=== PATIENT | male | born 1970 | race Caucasian/White ===

== ENCOUNTER 2018-08-25 14:32 | Emergency (ER) | payer MEDICARE ==
[2018-08-25 14:43] VITALS: BP 124/72; PULSE 88; RESP 18; TEMP 98.2
[2018-08-25] MEDS ORDERED: DIPH,PERTUS(ACELL)TETVAC-LF 0.5 ML VIAL IM ONE (14:57)
[2018-08-25] MEDS ORDERED: CEPHALEXIN 500MG STARTER PACK 4 CAP BTL PO STA (14:57)
--- NOTE | 2018-08-25 15:07 | ED ---
Wound/Laceration HPI - General Chief Complaint: Wound/Laceration Stated Complaint: Foot injury, toe laceration Time Seen by Provider: 08/25/18 14:44 Source: patient, RN notes reviewed, old records reviewed Mode of arrival: wheelchair Limitations: no limitations - History of Present Illness Initial Comments: Patient's a 48-year-old male with a history of left-sided paralysis post stroke presents emergency Department today with chief complaint of a laceration over his left third toe. Patient reports that he was in his wheelchair, not wearing shoes or boots. Patient reports that his toe was caught the edge of the fence causing laceration. He reports that he R he has limited range of motion of the toes due to neuropathy. Patient reports that he has had no fevers or chills, denies any chest pain shortness breath. He denies any other injuries. Patient reports that he is not up-to-date on his tetanus shot. - Related Data Home Medications Medication Instructions Recorded Confirmed Insulin Glargine [Lantus] 100 unit SQ HS 03/22/14 09/06/15 Olmesartan/Hydrochlorothiazide 1 tab PO DAILY 03/22/14 09/04/15 [Benicar Hct 40-25 mg Tablet] Simvastatin [Zocor] 40 mg PO HS 03/22/14 09/04/15 Multivit-Min/FA/Lycopen/Lutein 1 tab PO DAILY 09/04/15 09/04/15 [Centrum Silver Tablet] Previous Rx's Medication Instructions Recorded Lacosamide [Vimpat] 100 mg PO BID #120 tablet 09/08/15 Nicotine 14Mg/24Hr Patch [Habitrol] 1 patch TRANSDERM DAILY #30 patch 09/08/15 Pantoprazole [Protonix] 40 mg PO DAILY #30 tablet. 09/08/15 Phenytoin Sodium Extended 200 mg PO BID #120 cap 09/08/15 [Dilantin] Cephalexin [Keflex] 500 mg PO Q6H #40 cap 08/25/18 Allergies Allergy/AdvReac Type Severity Reaction Status Date / Time levetiracetam [From Keppra] AdvReac Confusion Verified 09/03/15 08:41 Review of Systems ROS Statement: Those systems with pertinent positive or pertinent negative responses have been documented in the HPI. ROS Other: All systems not noted in ROS Statement are negative. Past Medical History Past Medical History: Cancer, Diabetes Mellitus, Hypertension, Seizure Disorder Additional Past Medical History / Comment(s): brain ca History of Any Multi-Drug Resistant Organisms: None Reported Past Surgical History: Bariatric Surgery Additional Past Surgical History / Comment(s): brain tumor grade 3 removed April. Lap band-removed 2013 Past Anesthesia/Blood Transfusion Reactions: No Reported Reaction, Unable to Obtain Past Psychological History: Anxiety, Depression Smoking Status: Former smoker Past Alcohol Use History: Occasional Past Drug Use History: None Reported - Past Family History Mother History Unknown: Yes Family Medical History: No Reported History Father Family Medical History: Congestive Heart Failure (CHF), Diabetes Mellitus General Exam - General Exam Comments Initial Comments: 48-year-old male. Patient is wheelchair-bound. Patient appears in no acute distress. Limitations: no limitations General appearance: alert, in no apparent distress Head exam: Present: atraumatic, normocephalic, normal inspection Eye exam: Present: normal appearance, PERRL, EOMI. Absent: scleral icterus, conjunctival injection, periorbital swelling ENT exam: Present: normal exam, mucous membranes moist Respiratory exam: Present: normal lung sounds bilaterally. Absent: respiratory distress, wheezes, rales, rhonchi, stridor Cardiovascular Exam: Present: regular rate, normal rhythm, normal heart sounds. Absent: systolic murmur, diastolic murmur, rubs, gallop, clicks GI/Abdominal exam: Present: soft, normal bowel sounds. Absent: distended, tenderness, guarding, rebound, rigid Left Knee exam: Present: normal inspection, full ROM Lower Leg exam: Present: normal inspection, full ROM Ankle exam: Present: normal inspection, full ROM Foot/Toe exam: Present: full ROM, laceration (Patient has a laceration of the base of the third digit.). Absent: normal inspection Neurovascular tendon exam: Present: no vascular compromise 1 - 3cm laceration. Back exam: Present: normal inspection Neurological exam: Present: alert, oriented X3, CN II-XII intact Psychiatric exam: Present: normal affect, normal mood Skin exam: Present: warm, dry, intact, normal color. Absent: rash Course Vital Signs 08/25/18 14:39 Temperature 98.2 F Pulse Rate 88 Respiratory 18 Rate Blood Pressure 124/72 O2 Sat by Pulse 98 Oximetry Procedures - Laceration Laceration #1 Site: foot (left middle toe) Size (cm): 3 Description: linear Anesthetic Used: lidocaine 1% Anesthesia Technique: local infiltration Amount (mls): 3 Pre-repair: wound explored, irrigated extensively Size of Sutures: 5-0 Number of Sutures: 6 Technique: simple, interrupted Patient Tolerated Procedure: well, no complications Medical Decision Making - Medical Decision Making Patient is a 48-year-old male presenting to the emergency department today with a laceration over his left middle toe. He is wheelchair-bound. History of comorbidities. He's had suffered from a stroke after a brain tumor surgery. Patient has chronic left-sided lower extremity weakness. He does have some slight range of motion of the toes. He states that that has been chronic. No significant change due to his laceration. Wound was thoroughly reviewed with saline and Betadine. Laceration is closed with approximately 6 sutures. I will put the Patient on Keflex for infection prevention at this time. Discussed close follow-up with his PCP and he does see wound care. She does currently live in extended care facility. I discussed close follow-up. All questions answered. - Radiology Data Radiology results: report reviewed Foot x-rays made for any acute fracture dislocation. Disposition Clinical Impression: Toe laceration Disposition: HOME SELF-CARE Condition: Good Instructions: Laceration (ED) Additional Instructions: Please return to the emergency room in 8-10 days to have sutures removed. Please leave wound covered for the first 24-48 hours and then leave open to air after that time. Please use clean soap and water to clean the suture area to prevent scabbing over the top of your sutures. Please watch for any signs of infection which may include but not limited to increased pain, swelling, redness , fever or chills. Please return to the emergency room if any signs of infection do occur. Please return to the emergency room for any other concerns or complications. Patient should have bacitracin placed over the area, change the dressing 3 times a day. Patient should at some point allow the wound to air after 2-3 days of constant dressing. Patient should monitor for any infection. Computed the antibiotics as prescribed. Prescriptions: Cephalexin [Keflex] 500 mg PO Q6H #40 cap Is patient prescribed a controlled substance at d/c from ED?: No Referrals: Kathryn Vo MD [Primary Care Provider] - 1-2 days Time of Disposition: 16:02
--- NOTE | 2018-08-25 15:31 | XR ---
Left foot HISTORY: Trauma and pain 3 views of the left foot, correlation to prior exam 05/01/2015 Bone mineralization is reduced which could limit sensitivity. Alignment maintained. Suspect overlying artifact at the level of the toes. Hypertrophic change present within the tarsal bones, joint spaces are poorly defined, there may be ankylosis due to remote trauma. There is soft tissue swelling. Plan tar calcaneal spur is present. IMPRESSION: No acute fracture or dislocation.
== END 2018-08-25 16:10 | disposition home or self-care (01) ==
LOC: EC 14:32
DX: S91.115A Laceration without foreign body of left lesser toe(s) without damage to nail, initial encounter (principal); I69.354 Hemiplegia and hemiparesis following cerebral infarction affecting left non-dominant side; I10 Essential (primary) hypertension; E11.40 Type 2 diabetes mellitus with diabetic neuropathy, unspecified; Z87.891 Personal history of nicotine dependence; Z88.8 Allergy status to other drugs, medicaments and biological substances; Z79.4 Long term (current) use of insulin; Z79.899 Other long term (current) drug therapy; Z85.841 Personal history of malignant neoplasm of brain; Z98.890 Other specified postprocedural states; Z99.3 Dependence on wheelchair; Z23 Encounter for immunization; W45.8XXA Other foreign body or object entering through skin, initial encounter; Y92.009 Unspecified place in unspecified non-institutional (private) residence as the place of occurrence of the external cause
CPT/HCPCS: 12002; 90471; 90715; 99283

== ENCOUNTER → 2019-03-10 | Outpatient (CLI) | payer OTHER | END | disposition home or self-care (01) | LOC: LABWHC1 11:30 | PROVIDERS: ATTEND Urology | DX: R97.20 Elevated prostate specific antigen [PSA] (principal) | CPT/HCPCS: 36415; 84153 ==

== ENCOUNTER → 2019-03-24 | Outpatient (CLI) | payer MEDICARE, OTHER ==
--- NOTE | 2019-03-24 15:42 | US ---
EXAMINATION TYPE: US venous doppler duplex LE LT DATE OF EXAM: 03/24/2019 3:28 PM COMPARISON: NONE CLINICAL HISTORY: R60.9 Edema. SIDE PERFORMED: Left TECHNIQUE: The lower extremity deep venous system is examined utilizing real time linear array sonog lorraine with graded compression, doppler sonography and color-flow sonography. VESSELS IMAGED: External Iliac Vein (EIV)-not seen Common Femoral Vein-not seen Deep Femoral Vein-not seen Greater Saphenous Vein *-not seen Femoral Vein Popliteal Vein Small Saphenous Vein *-not seen Proximal Calf Veins-not seen (* superficial vessels) Morbidly obese patient with extensive edema scanned in his Gunlock wheelchair. Left Leg: Only able to visualize small portion of vein, unable to visualize any compression views in thigh due to patient size and position in chair. Femoral vein appears patent upper and mid, however t his is very limited. Only able to visualized proximal and mid popliteal vein, these appear negative f or DVT. IMPRESSION: 1. Severely limited exam correlate portions of the femoral vein are seen. Exam is essentially nondiag nostic. The visualized portions of the venous system are patent. DVT not excluded in the areas not de monstrated.
== END | disposition home or self-care (01) ==
LOC: RADUSWWP 15:05
PROVIDERS: ATTEND Internal Medicine Geriatric Medicine
DX: R60.9 Edema, unspecified (principal)

== ENCOUNTER 2019-04-02 10:44 | Inpatient (IN) | payer MEDICARE ==
[2019-04-02] MEDS ORDERED: SODIUM CHLORIDE 0.9% 500 ML 500 ML IV STA (11:15)
[2019-04-02] MEDS ORDERED: levETIRAcetam IV 1,000 MG in SALINE 1 100ML.BAG IVPB STA (11:27)
--- NOTE | 2019-04-02 11:32 | ED ---
General Adult HPI - General Chief complaint: Seizure Stated complaint: Seizure Time Seen by Provider: 04/02/19 11:15 Source: patient, EMS, RN notes reviewed Mode of arrival: EMS Limitations: physical limitation - History of Present Illness Initial comments: 48-year-old male with a past medical history of hypertension, diabetes, seizure disorder, astrocytoma presents to the emergency department for a chief complaint of seizures. Patient apparently had 2 focal seizures occur all earlier this morning. One was witnessed by EMS and lasted approximately 20-30 seconds. Caregiver also witnessed this and states that patient stared to the right and started to have some minimal shaking. He said he did follow her with his eyes. Patient states he remembers these episodes. Patient did not lose bladder or bowel function. Did not bite his tongue. Patient takes Keppra for seizures but states he has a history of tonic-clonic seizures with the last one occurring in 2016. 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 Patient is not yet cleared of astrocytoma. Patient did take his medications earlier today. Patient has no other complaints at this time including shortness of breath, chest pain, abdominal pain, nausea or vomiting, headache, or visual changes. - Related Data Home Medications Medication Instructions Recorded Confirmed Insulin Glargine [Lantus] 30 unit SQ HS 03/22/14 04/02/19 Acetaminophen [Tylenol] 650 mg PO Q6H PRN MDD 6 TABS 04/02/19 04/02/19 Albuterol Inhaler [Ventolin Hfa 2 puff INHALATION RT-Q6H PRN 04/02/19 04/02/19 Inhaler] Atorvastatin Calcium [Lipitor] 80 mg PO HS 04/02/19 04/02/19 Calcium Carbonate [Tums] 1,000 mg PO QID PRN 04/02/19 04/02/19 Celecoxib [CeleBREX] 200 mg PO DAILY 04/02/19 04/02/19 Cyanocobalamin [Vitamin B-12] 500 mcg PO MOTUWETHFR 04/02/19 04/02/19 DULoxetine HCL [Cymbalta] 60 mg PO DAILY 04/02/19 04/02/19 Furosemide [Lasix] 20 mg PO DAILY 04/02/19 04/02/19 Gabapentin 800 mg PO TID 04/02/19 04/02/19 Insulin Glargine [Lantus] 35 unit SQ DAILY 04/02/19 04/02/19 Losartan [Cozaar] 50 mg PO DAILY 04/02/19 04/02/19 Multivitamins, Thera [Multivitamin 1 tab PO DAILY 04/02/19 04/02/19 (formulary)] Tamsulosin HCl [Flomax] 0.4 mg PO DAILY 04/02/19 04/02/19 hydrALAZINE HCL 50 mg PO TID 04/02/19 04/02/19 levETIRAcetam [Keppra] 500 mg PO Q12HR 04/02/19 04/02/19 metFORMIN HCL 1,000 mg PO BID 04/02/19 04/02/19 Allergies Allergy/AdvReac Type Severity Reaction Status Date / Time lisinopril Allergy Unknown Verified 04/02/19 11:27 pioglitazone [From Actos] Allergy Unknown Verified 04/02/19 11:27 levetiracetam [From Keppra] AdvReac Confusion Verified 04/02/19 11:27 Review of Systems ROS Statement: Those systems with pertinent positive or pertinent negative responses have been documented in the HPI. ROS Other: All systems not noted in ROS Statement are negative. Past Medical History Past Medical History: Cancer, Diabetes Mellitus, Hypertension, Seizure Disorder Additional Past Medical History / Comment(s): brain ca History of Any Multi-Drug Resistant Organisms: None Reported Past Surgical History: Bariatric Surgery Additional Past Surgical History / Comment(s): brain tumor grade 3 removed April,. Lap band-removed 2013 Past Anesthesia/Blood Transfusion Reactions: No Reported Reaction, Unable to Ob tain Past Psychological History: Anxiety, Depression Smoking Status: Current every day smoker Past Alcohol Use History: Occasional Past Drug Use History: None Reported - Past Family History Mother History Unknown: Yes Family Medical History: No Reported History Father Family Medical History: Congestive Heart Failure (CHF), Diabetes Mellitus General Exam Limitations: physical limitation General appearance: alert, in no apparent distress (Well appearing, talking, no distress) Head exam: Present: atraumatic, normocephalic, normal inspection Eye exam: Present: normal appearance, PERRL, EOMI. Absent: scleral icterus, conjunctival injection, periorbital swelling ENT exam: Present: normal exam, mucous membranes moist Neck exam: Present: normal inspection, full ROM. Absent: tenderness, meningismus, lymphadenopathy Respiratory exam: Present: normal lung sounds bilaterally. Absent: respiratory distress, wheezes, rales, rhonchi, stridor Cardiovascular Exam: Present: regular rate, normal rhythm, normal heart sounds. Absent: systolic murmur, diastolic murmur, rubs, gallop, clicks Neurological exam: Present: alert, oriented X3, CN II-XII intact, other (Patient has left-sided facial arm and leg weakness which is all chronic) Psychiatric exam: Present: normal affect, normal mood Course Vital Signs 04/02/19 04/02/19 10:54 13:36 Temperature 97.2 F L Pulse Rate 96 88 Respiratory 18 16 Rate Blood Pressure 135/86 138/88 O2 Sat by Pulse 94 L 98 Oximetry EKG Findings - EKG Comments: EKG Findings:: Normal sinus rhythm, ventricular rate 87, CT interval 164, QTc 462, no evidence of ST elevation or depression Medical Decision Making - Medical Decision Making 48-year-old male with a past medical history of hypertension, diabetes, seizure disorder, astrocytoma presents to the emergency department for chief clean of seizures. Patient had 2 focal seizures occurring earlier this morning. One was witnessed by EMS. Caregivers witnessed the other. Patient apparently turned his head to the right had some minimal shaking that lasted for about 20-30 seconds. Patient has a history of left-sided chronic weakness due to brain mcbride rgery for astrocytoma. No history of stroke. She does have a history of grand mal seizures with the last seizure being in 2016. These seizures are different than any previous seizures. On exam patient does have left-sided weakness however right-side is intact. Patient states he feels normal besides for the seizures. She was given Keppra here as he does take Keppra home. He did have a mild seizure and was given Ativan. ABC is unremarkable. CMP does show a glucose of 326, patient has a history of diabetes and was given insulin SQ,. Brain CT shows focal decreased attenuation which may reflect a vascular insult. Clinically likely not the case as left-sided weakness is chronic and he has no other focal neurologic deficits. There is also a temporal craniotomy with postoperative encephalomalacia and dilation of the right lateral ventricle right frontal horn. Given that patient has had a seizure while in the ER he will be admitted for neurology consult. Patient also has possible urinary tract infection, will be given dose of Rocephin here in the emergency department. - Lab Data Result diagrams: 04/02/19 11:20 04/02/19 11:20 Lab Results 04/02/19 04/02/19 04/02/19 Range/Units 11:20 11:20 11:20 WBC 6.7 (3.8-10.6) k/uL RBC 5.33 (4.30-5.90) m/uL Hgb 16.2 (13.0-17.5) gm/dL Hct 50.3 (39.0-53.0) % MCV 94.5 (80.0-100.0) fL MCH 30.3 (25.0-35.0) pg MCHC 32.1 (31.0-37.0) g/dL RDW 13.3 (11.5-15.5) % Plt Count 208 (150-450) k/uL Neutrophils % 76 % Lymphocytes % 14 % Monocytes % 7 % Eosinophils % 2 % Basophils % 1 % Neutrophils # 5.1 (1.3-7.7) k/uL Lymphocytes # 0.9 L (1.0-4.8) k/uL Monocytes # 0.5 (0-1.0) k/uL Eosinophils # 0.1 (0-0.7) k/uL Basophils # 0.0 (0-0.2) k/uL Sodium 138 (137-145) mmol/L Potassium 4.2 (3.5-5.1) mmol/L Chloride 100 (98-107) mmol/L Carbon Dioxide 23 (22-30) mmol/L Anion Gap 15 mmol/L BUN 12 (9-20) mg/dL Creatinine 0.58 L (0.66-1.25) mg/dL Est GFR (CKD-EPI)AfAm >90 (>60 ml/min/1.73 sqM) Est GFR (CKD-EPI)NonAf >90 (>60 ml/min/1.73 sqM) Glucose 326 H (74-99) mg/dL Calcium 9.8 (8.4-10.2) mg/dL Magnesium 1.6 (1.6-2.3) mg/dL Total Bilirubin 0.8 (0.2-1.3) mg/dL AST 31 (17-59) U/L ALT 38 (21-72) U/L Alkaline Phosphatase 151 H (38-126) U/L Total Protein 6.8 (6.3-8.2) g/dL Albumin 4.0 (3.5-5.0) g/dL Urine Color Urine Appearance (Clear) Urine pH (5.0-8.0) Ur Specific [place] (1.001-1.035) Urine Protein (Negative) Urine Glucose (UA) (Negative) Urine Blood (Negative) Urine Nitrite (Negative) Urine Bilirubin (Negative) Urine Urobilinogen (<2.0) mg/dL Ur Leukocyte Esterase (Negative) Urine RBC (0-5) /hpf Urine WBC (0-5) /hpf Ur Squamous Epith Cells (0-4) /hpf Urine Bacteria (None) /hpf Urine Mucus (None) /hpf Serum Alcohol <10 mg/dL 04/02/19 Range/Units 13:15 WBC (3.8-10.6) k/uL RBC (4.30-5.90) m/uL Hgb (13.0-17.5) gm/dL Hct (39.0-53.0) % MCV (80.0-100.0) fL MCH (25.0-35.0) pg MCHC (31.0-37.0) g/dL RDW (11.5-15.5) % Plt Count (150-450) k/uL Neutrophils % % Lymphocytes % % Monocytes % % Eosinophils % % Basophils % % Neutrophils # (1.3-7.7) k/uL Lymphocytes # (1.0-4.8) k/uL Monocytes # (0-1.0) k/uL Eosinophils # (0-0.7) k/uL Basophils # (0-0.2) k/uL Sodium (137-145) mmol/L Potassium (3.5-5.1) mmol/L Chloride (98-107) mmol/L Carbon Dioxide (22-30) mmol/L Anion Gap mmol/L BUN (9-20) mg/dL Creatinine (0.66-1.25) mg/dL Est GFR (CKD-EPI)AfAm (>60 ml/min/1.73 sqM) Est GFR (CKD-EPI)NonAf (>60 ml/min/1.73 sqM) Glucose (74-99) mg/dL Calcium (8.4-10.2) mg/dL Magnesium (1.6-2.3) mg/dL Total Bilirubin (0.2-1.3) mg/dL AST (17-59) U/L ALT (21-72) U/L Alkaline Phosphatase (38-126) U/L Total Protein (6.3-8.2) g/dL Albumin (3.5-5.0) g/dL Urine Color Light Yellow Urine Appearance Clear (Clear) Urine pH 5.0 (5.0-8.0) Ur Specific [place] 1.031 (1.001-1.035) Urine Protein Negative (Negative) Urine Glucose (UA) 4+ H (Negative) Urine Blood Trace H (Negative) Urine Nitrite Negative (Negative) Urine Bilirubin Negative (Negative) Urine Urobilinogen <2.0 (<2.0) mg/dL Ur Leukocyte Esterase Moderate H (Negative) Urine RBC 1 (0-5) /hpf Urine WBC 41 H (0-5) /hpf Ur Squamous Epith Cells <1 (0-4) /hpf Urine Bacteria Rare H (None) /hpf Urine Mucus Rare H (None) /hpf Serum Alcohol mg/dL Disposition Clinical Impression: Focal seizure, Hyperglycemia Disposition: ADMITTED IP TO THIS HOSP Condition: Fair Is patient prescribed a controlled substance at d/c from ED?: No Referrals: Kathryn Vo MD [Primary Care Provider] - 1-2 days Time of Disposition: 13:37
[2019-04-02] MEDS ORDERED: LORazepam 2 MG/ML INJ IV STA (11:37)
[2019-04-02 11:44] LABS: Basophils % (A) 1 %; Eosinophils # (A) 0.1 k/uL (0-0.7); Eosinophils % (A) 2 %; HCT 50.3 % (39.0-53.0); HGB 16.2 gm/dL (13.0-17.5); Lymphocytes # (A) 0.9 k/uL (1.0-4.8); Lymphocytes % (A) 14 %; MCH 30.3 pg (25.0-35.0); MCHC 32.1 g/dL (31.0-37.0); MCV 94.5 fL (80.0-100.0); Mean Platelet Volume 7.9; Monocytes # (A) 0.5 k/uL (0-1.0); Monocytes % (A) 7 %; Neutrophils # (A) 5.1 k/uL (1.3-7.7); Neutrophils % (A) 76 %; Platelet Count 208 k/uL (150-450); RBC 5.33 m/uL (4.30-5.90); RDW 13.3 % (11.5-15.5); WBC 6.7 k/uL (3.8-10.6)
[2019-04-02 11:49] LABS: ALT 38 U/L (21-72); AST 31 U/L (17-59); African American GFR (CKD) >90 (>60 ml/min/1.73 sqM); Alkaline Phosphatase 151 U/L (38-126); Anion Gap 15 mmol/L; Blood Urea Nitrogen 12 mg/dL (9-20); Calcium 9.8 mg/dL (8.4-10.2); Carbon Dioxide 23 mmol/L (22-30); Chloride 100 mmol/L (98-107); Glucose 326 mg/dL (74-99); Magnesium 1.6 mg/dL (1.6-2.3); Potassium 4.2 mmol/L (3.5-5.1); Sodium 138 mmol/L (137-145); Total Bilirubin 0.8 mg/dL (0.2-1.3); Total Protein 6.8 g/dL (6.3-8.2)
--- NOTE | 2019-04-02 12:25 | CT ---
EXAMINATION TYPE: CT brain wo con DATE OF EXAM: 04/02/2019 COMPARISON: 09/03/2015 HISTORY: Seizure today. CT DLP: 1095.[address] of the brain was performed. There is evidence of prior right temporal craniotomy. Extra-axial dilatation of the right lateral soo tricle and frontal horn. Encephalomalacia of the right temporal lobe is postoperative in nature. There is a focal decreased attenuation seen on image 27 of 55 minutes which may reflect vascular insu lt. Correlate clinically. There is no evidence for intracranial hemorrhage or sulcal effacement. No mass effects are seen. If symptoms persist consider MRI as clinically warranted. IMPRESSION: 1. There is a focal decreased attenuation seen on image 27 of 55 minutes which may reflect vascular insult. Correlate clinically. 2. Right temporal craniotomy with postoperative encephalomalacia and exvacuo dilatation of the right lateral ventricle right frontal horn.
[2019-04-02] MEDS ORDERED: INSULIN ASPART (NovoLOG) 100 UNIT/ML VIAL SQ ONE (12:44)
[2019-04-02] MEDS ORDERED: ASPIRIN 81 MG PO STA (13:35)
[2019-04-02] MEDS ORDERED: NALOXONE 0.4 MG/ML 1 ML VIAL IV PRN (13:38)
[2019-04-02 13:40] LABS: Appearance,Urine Clear (Clear); Bacteria,Urine Rare /hpf; Bilirubin,Urine Negative (Negative); Blood,Urine Trace (Negative); Color,Urine Light Yellow; Glucose,Urine (UA) 4+ (Negative); Leukocyte Esterase,Urine Moderate (Negative); Mucus,Urine Rare /hpf; Nitrite,Urine Negative (Negative); Protein,Urine Negative (Negative); RBC,Urine 1 /hpf (0-5); Specific Gravity,Urine 1.031 (1.001-1.035); Squamous Epithelial Cell,Urine <1 /hpf (0-4); Urobilinogen,Urine <2.0 mg/dL (<2.0); WBC,Urine 41 /hpf (0-5)
[2019-04-02] MEDS ORDERED: cefTRIAXone IN SWFI 1,000 MG/10 ML SYRINGE IVP STA (13:41)
[2019-04-02 13:47] LABS: Amphetamine Screen,Urine Not Detected (NotDetected); Barbiturate Screen,Urine Not Detected (NotDetected); Benzodiazepines Screen,Urine Not Detected (NotDetected); Cocaine Screen,Urine Not Detected (NotDetected); Methadone Screen, Urine Not Detected (NotDetected); Opiate Screen,Urine Not Detected (NotDetected); Oxycodone Screen, Urine Detected (NotDetected); Phencyclidine Screen,Urine Not Detected (NotDetected); Tricyclic Antidepressant,Urine Not Detected (NotDetected); Urn Cannabinoid Scrn Not Detected (NotDetected)
[2019-04-02] MEDS: SODIUM CHLORIDE 0.9% 1,000 ML IV SCH (13:54)
[2019-04-02 13:56] LABS: Ketones,Urine 4+ (Negative)
[2019-04-02 14:05] LABS: Glucose,Whole Blood 273 mg/dL (75-99)
[2019-04-02] MEDS ORDERED: CALCIUM CARBONATE 500 MG CHEWABLE PO PRN (14:43)
[2019-04-02] MEDS ORDERED: ACETAMINOPHEN TAB 325 MG TAB PO PRN (14:43)
[2019-04-02] MEDS ORDERED: ALBUTEROL NEBULIZED 2.5 MG/3 ML INHALATION PRN (14:43)
--- NOTE | 2019-04-02 14:43 | P.HPIM ---
History of Present Illness H&P Date: 04/02/19 Chief Complaint: Recurrent seizures. This is a 48-year-old male one of Dr. 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, seizure disorder, hypertension and hypertensive cardiovascular disease, diabetes mellitus type 2, morbid obesity with obstructive sleep apnea, patient was in his usual state of health with his caregiver when he developed to have a significant left-sided muscle and he has gone into seizure activity for about 22nd this is followed by another seizure lasted for about 45 seconds that was witnessed by the EMS and the patient was transported to the emergency department at [facility] where the patient developed to have a tonic-clonic seizure without any loss of consciousness and without any urinary or stool incontinence and he did not bite his tongue, patient had a computed tomography scan of the brain that showed beside the encephalomalacia due to the prior surgical intervention what appears to be in hypoattenuation area suggestive of an vascular insult, patient stated that he had an MRI done prolonged ago at the [facility] MRI we will try to get the result from the office, and the patient he stated that he has been following [facility] h Dr. Fahad Blair from neurology at [facility] and the last time he was seen by him about 2 months ago, patient will be admitted to the hospital he was seen in consultation by neurology and his Keppra dose will be adjusted, patient will be placed on seizure precautions as well, full acute stroke evaluation will be done including ultrasound the carotid echocardiogram he will maintain an antiplatelet therapy as well. Review of Systems Constitutional: Reports chronic pain, Reports weakness, Denies anorexia, Denies chronic headaches, Denies fatigue, Denies lethargy, Denies malaise Eyes: denies blurred vision, denies bulging eye, denies decreased vision Ears: deny: decreased hearing Ears, nose, mouth and throat: Denies dysphagia, Denies neck lump, Denies swelling in throat, Denies sore throat Cardiovascular: Denies chest pain, Denies decreased exercise tolerance, Denies dyspnea on exertion, Denies lightheadedness, Denies rapid heart beat, Denies shortness of breath, Denies syncope Respiratory: Reports sleep apnea, Reports snoring, Denies congestion, Denies cough with sputum, Denies home oxygen, Denies wheezing Gastrointestinal: Denies abdominal pain, Denies bloating, Denies BRBPR, Denies heartburn, Denies melena, Denies nausea, Denies vomiting Genitourinary: Denies dysuria Musculoskeletal: Reports gait dysfunction, Reports low back pain, Reports muscle weakness Musculoskeletal: bilateral: ankle swelling, foot swelling, absent: ankle pain, ankle stiffness, elbow pain, elbow stiffness, elbow swelling, foot pain, foot stiffness, hand pain, hand stiffness, hand swelling, hip pain, hip stiffness, hip swelling, knee pain, knee stiffness, knee swelling, shoulder pain, shoulder stiffness, shoulder swelling, wrist pain, wrist stiffness, wrist swelling Integumentary: Denies pruritus, Denies rash Neurological: Reports convulsions, Reports gait dysfunction, Reports motor disturbance, Reports paralysis, Reports seizures, Reports sensory deficit, Reports weakness (Left-sided hemiplegia.) Psychiatric: Denies anxiety, Denies depression Endocrine: Denies fatigue, Denies weight change Past Medical History Past Medical History: Cancer, Diabetes Mellitus, Hyperlipidemia, Hypertension, Neurologic Disorder, Seizure Disorder, Sleep Apnea/CPAP/BIPAP Additional Past Medical History / Comment(s): Astrocytoma status post right temporal craniotomy. History of Any Multi-Drug Resistant Organisms: None Reported Past Surgical History: Bariatric Surgery Additional Past Surgical History / Comment(s): brain tumor grade 3 removed April,. Lap band-removed 2013 Past Anesthesia/Blood Transfusion Reactions: No Reported Reaction, Unable to Obtain Past Psychological History: Anxiety, Depression Smoking Status: Current every day smoker (Patient smoked about half a pack every day his hospital he was teenager.) Past Alcohol Use History: Occasional Past Drug Use History: None Reported - Past Family History Mother History Unknown: Yes Family Medical History: No Reported History (Mother 72-year-old with history of bipolar disorder.) Father Family Medical History: Congestive Heart Failure (CHF) (Father at age 64 from congestive heart failure he also has diabetes mellitus type 2.), Diabetes Mellitus Brother(s) Family Medical History: No Reported History (Patient has one brother no major medical problems.) Sister(s) Family Medical History: No Reported History (Patient has 2 sisters no major medical problems.) Son(s) Family Medical History: No Reported History (Patient has 2 sons no major medical problems.) Medications and Allergies Home Medications Medication Instructions Recorded Confirmed Type Insulin Glargine [Lantus] 30 unit SQ HS 03/22/14 04/02/19 History Acetaminophen [Tylenol] 650 mg PO Q6H PRN MDD 6 TABS 04/02/19 04/02/19 History Albuterol Inhaler [Ventolin Hfa 2 puff INHALATION RT-Q6H PRN 04/02/19 04/02/19 History Inhaler] Atorvastatin Calcium [Lipitor] 80 mg PO HS 04/02/19 04/02/19 History Calcium Carbonate [Tums] 1,000 mg PO QID PRN 04/02/19 04/02/19 History Celecoxib [CeleBREX] 200 mg PO DAILY 04/02/19 04/02/19 History Cyanocobalamin [Vitamin B-12] 500 mcg PO MOTUWETHFR 04/02/19 04/02/19 History DULoxetine HCL [Cymbalta] 60 mg PO DAILY 04/02/19 04/02/19 History Furosemide [Lasix] 20 mg PO DAILY 04/02/19 04/02/19 History Gabapentin 800 mg PO TID 04/02/19 04/02/19 History Insulin Glargine [Lantus] 35 unit SQ DAILY 04/02/19 04/02/19 History Losartan [Cozaar] 50 mg PO DAILY 04/02/19 04/02/19 History Multivitamins, Thera [Multivitamin 1 tab PO DAILY 04/02/19 04/02/19 History (formulary)] Tamsulosin HCl [Flomax] 0.4 mg PO DAILY 04/02/19 04/02/19 History hydrALAZINE HCL 50 mg PO TID 04/02/19 04/02/19 History levETIRAcetam [Keppra] 500 mg PO Q12HR 04/02/19 04/02/19 History metFORMIN HCL 1,000 mg PO BID 04/02/19 04/02/19 History Allergies Allergy/AdvReac Type Severity Reaction Status Date / Time lisinopril Allergy Unknown Verified 04/02/19 11:27 pioglitazone [From Actos] Allergy Unknown Verified 04/02/19 11:27 levetiracetam [From Keppra] AdvReac Confusion Verified 04/02/19 11:27 Physical Exam Vitals: Vital Signs Temp Pulse Resp BP Pulse Ox 04/02/19 13:36 88 16 138/88 98 04/02/19 10:54 97.2 F L 96 18 135/86 94 L Intake and Output 04/01/19 04/02/19 04/02/19 22:59 06:59 14:59 Other: Weight 185.519 kg - Constitutional General appearance: no acute distress, obese - EENT Eyes: anicteric sclerae, EOMI, PERRLA, no ptosis, no scleral icterus, normal appearance ENT: hearing grossly normal, normal oropharynx, no thrush Ears: bilateral: normal - Neck Neck: no lymphadenopathy, normal ROM, no rigidity, no stridor, no thyromegaly Carotids: bilateral: upstroke normal Thyroid: bilateral: normal size - Respiratory Respiratory: bilateral: diminished, negative: dullness, rales, rhonchi, wheezing, prolonged expiration - Cardiovascular Rhythm: regular Heart sounds: normal: S1, S2 Abnormal Heart Sounds: no systolic murmur, no rub, no S3 Gallop, no S4 Gallop, no click - Gastrointestinal General gastrointestinal: normal bowel sounds, soft, no splenomegaly, no tenderness, no umbilical hernia, no ventral hernia - Integumentary Integumentary: normal (Chronic skin changes both lower extremities due to neuropathic changes.) - Neurologic Neurologic: focal deficits (Left-sided hemiplegia.) - Musculoskeletal Musculoskeletal: no gait normal, left sided weakness - Psychiatric Psychiatric: A&O x's 3, appropriate affect, intact judgment & insight Results CBC & Chem 7: 04/02/19 11:20 04/02/19 11:20 Labs: Abnormal Lab Results - Last 24 Hours (Table) 04/02/19 04/02/19 04/02/19 Range/Units 11:20 11:20 13:15 Lymphocytes # 0.9 L (1.0-4.8) k/uL Creatinine 0.58 L (0.66-1.25) mg/dL Glucose 326 H (74-99) mg/dL POC Glucose (mg/dL) (75-99) mg/dL Alkaline Phosphatase 151 H (38-126) U/L Urine Glucose (UA) 4+ H (Negative) Urine Ketones 4+ H (Negative) Urine Blood Trace H (Negative) Ur Leukocyte Esterase Moderate H (Negative) Urine WBC 41 H (0-5) /hpf Urine Bacteria Rare H (None) /hpf Urine Mucus Rare H (None) /hpf Ur Oxycodone Screen Detected H (NotDetected) 04/02/19 Range/Units 13:45 Lymphocytes # (1.0-4.8) k/uL Creatinine (0.66-1.25) mg/dL Glucose (74-99) mg/dL POC Glucose (mg/dL) 273 H (75-99) mg/dL Alkaline Phosphatase (38-126) U/L Urine Glucose (UA) (Negative) Urine Ketones (Negative) Urine Blood (Negative) Ur Leukocyte Esterase (Negative) Urine WBC (0-5) /hpf Urine Bacteria (None) /hpf Urine Mucus (None) /hpf Ur Oxycodone Screen (NotDetected) Thrombosis Risk Factor Assmnt - DVT/VTE Prophylaxis DVT/VTE Prophylaxis: Pharmacologic Prophylaxis ordered, Mechanical Prophylaxis ordered Assessment and Plan Assessment: Assessment and plan: 1. Recurrent seizure with tonic-clonic type this time. Increase Keppra to 750 mg orally twice every day, patient did receive a gram of Keppra IV piggyback 1, seizure precautions, neurology evaluation, computed tomography scan of the brain reviewed, patient did have an MRI of the brain that was done just recently we'll try to obtain a copy from [facility]. Neurology consultation. 2. Hypoattenuating lesion suggestive of possible vascular insult. Start the patient on aspirin 325 mg once every day, continue Lipitor 80 mg orally once every day, patient will need to be evaluated by neurology, neuro check every 2 hours for the next 24 hours, we will check ultrasound of the carotid as well as echocardiogram. 3. Hypertension and hypertensive cardiovascular disease. Continue patient on losartan 50 mg orally once every day and hydralazine 50 mg orally 2 times every day. 4. Hyperlipidemia. Continue patient on Lipitor 80 mg orally once every day. 5. Enlarged prostate. Continue Flomax 0.4 mg orally once every day. 6. Diabetes mellitus type 2. Continue patient on Lantus 30 units subcutaneously twice every day along with sliding scale insulin, continue metformin 1000 mg orally twice every day. Became before each meal and at bedtime. 7. Diabetic polyneuropathy. Continue gabapentin 800 mg orally 2 times every day. 8. Depression. Continue Cymbalta 60 mg orally once every day. 9. History of astrocytoma status post right craniotomy with resultant left- sided hemiplegia. 10. DVT prophylaxis. Heparin 5000 units subcutaneously every 8 hours. 11. GI prophylaxis. Continue patient on PPI. 12. Admit to inpatient. Estimated length of stay 2 midnights. 13. Patient is full code.
--- NOTE | 2019-04-02 15:44 | P.CNNES ---
History of Present Illness Consult date: 04/02/19 Requesting physician: Soham Davenport Reason for Consult: Seizure Chief complaint: Breakthrough seizure this am History of Present Illness: This is a 48 RH male diagnosed with astrocytoma with recurrence x2 s/p multiple surgical resections with the most recent one leaving him with left HP and pa rtial left-sided field cut. The field cut has improved over time, but his appendicular weakness has not. He gets around in a power wheelchair. He does have a h/o seizure disorder that is complex partial type. Semiology is head turning to the left then with or without shaking of the left extremities. He does not completely lose consciousness during an ictal event. No tongue biting or bowel/bladder incontinence. Sometimes post-ictal confusion. He had one single event earlier today for which he came to the ER. Patient had been compliant with LEV 500mg po bid and GBP 800mg po tid. No side effects. He was loaded with 1g of LEV and primary team adjusted his maintenance to 750mg po bid. He had normal renal function on admission labs. No side effects noted with his current AED regimen. Another issue is radiology's mentioning of possible vascular insult on CT Head, timing unknown, for which he will also need a vascular work-up. Other than his chronic visual disturbance and left HP, he does not have any current new neuro c/o. Review of Systems I have performed at 14-point organ ROS with patient that are negative except as per HPI. Past Medical History Past Medical History: Cancer, Diabetes Mellitus, Hyperlipidemia, Hypertension, Neurologic Disorder, Seizure Disorder, Sleep Apnea/CPAP/BIPAP Additional Past Medical History / Comment(s): Astrocytoma status post right temporal craniotomy. History of Any Multi-Drug Resistant Organisms: None Reported Past Surgical History: Bariatric Surgery Additional Past Surgical History / Comment(s): brain tumor grade 3 removed April,. Lap band-removed 2013 Past Anesthesia/Blood Transfusion Reactions: No Reported Reaction, Unable to Obtain Past Psychological History: Anxiety, Depression Smoking Status: Current every day smoker (Patient smoked about half a pack every day his hospital he was teenager.) Past Alcohol Use History: Occasional Past Drug Use History: None Reported - Past Family History Brother(s) Family Medical History: No Reported History (Patient has one brother no major medical problems.) Sister(s) Family Medical History: No Reported History (Patient has 2 sisters no major medical problems.) Son(s) Family Medical History: No Reported History (Patient has 2 sons no major medical problems.) Mother History Unknown: Yes Family Medical History: No Reported History (Mother 72-year-old with history of bipolar disorder.) Father Family Medical History: Congestive Heart Failure (CHF) (Father at age 64 from congestive heart failure he also has diabetes mellitus type 2.), Diabetes Mellitus Medications and Allergies Home Medications Medication Instructions Recorded Confirmed Type Insulin Glargine [Lantus] 30 unit SQ HS 03/22/14 04/02/19 History Acetaminophen [Tylenol] 650 mg PO Q6H PRN MDD 6 TABS 04/02/19 04/02/19 History Albuterol Inhaler [Ventolin Hfa 2 puff INHALATION RT-Q6H PRN 04/02/19 04/02/19 History Inhaler] Atorvastatin Calcium [Lipitor] 80 mg PO HS 04/02/19 04/02/19 History Calcium Carbonate [Tums] 1,000 mg PO QID PRN 04/02/19 04/02/19 History Celecoxib [CeleBREX] 200 mg PO DAILY 04/02/19 04/02/19 History Cyanocobalamin [Vitamin B-12] 500 mcg PO MOTUWETHFR 04/02/19 04/02/19 History DULoxetine HCL [Cymbalta] 60 mg PO DAILY 04/02/19 04/02/19 History Furosemide [Lasix] 20 mg PO DAILY 04/02/19 04/02/19 History Gabapentin 800 mg PO TID 04/02/19 04/02/19 History Insulin Glargine [Lantus] 35 unit SQ DAILY 04/02/19 04/02/19 History Losartan [Cozaar] 50 mg PO DAILY 04/02/19 04/02/19 History Multivitamins, Thera [Multivitamin 1 tab PO DAILY 04/02/19 04/02/19 History (formulary)] Tamsulosin HCl [Flomax] 0.4 mg PO DAILY 04/02/19 04/02/19 History hydrALAZINE HCL 50 mg PO TID 04/02/19 04/02/19 History levETIRAcetam [Keppra] 500 mg PO Q12HR 04/02/19 04/02/19 History metFORMIN HCL 1,000 mg PO BID 04/02/19 04/02/19 History Allergies Allergy/AdvReac Type Severity Reaction Status Date / Time lisinopril Allergy Unknown Verified 04/02/19 11:27 pioglitazone [From Actos] Allergy Unknown Verified 04/02/19 11:27 levetiracetam [From Keppra] AdvReac Confusion Verified 04/02/19 11:27 Physical Examination - Vital Signs Vital Signs: Vital Signs Temp Pulse Resp BP Pulse Ox 04/02/19 14:54 93 18 138/88 99 04/02/19 13:36 88 16 138/88 98 04/02/19 10:54 97.2 F L 96 18 135/86 94 L Intake and Output 04/02/19 04/02/19 04/02/19 06:59 14:59 22:59 Other: Weight 185.519 kg Gen NAD Pleasant and cooperative HEENT NCAT Sclera without icterus O/P clear Neck Supple No carotid bruit Cor RRR no m/r/g Lungs CTAB Abd Soft NTND +BS Ext Warm to touch No edema Neuro MS A+Ox4 Normal fluency Able to follow all commands CN PERRL Left incongrous homonymous hemianopsia no APD EOMI no nystagmus or GWEN No facial asymmetry Masseter's symmetric Hearing intact to normal voice bilaterally Speech not dysarthric Equal elevation of palate Tongue midline Sym s hrug and SCM bilaterally Motor Normal bulk BRUNO&LE spasticity No right pronator or leg drift No tremors Strength 5/5 right 0/5 left Sens Intact to LT x4 No neglect Coord No dysmetria on FTN right DTRs 2+/4 right 3+/4 left Right toes downgoing Left toes upgoing no ankle clonus Gait Cannot test due to hemiplegia NIHSS 9 Results - Laboratory Findings CBC and BMP: 04/02/19 11:20 04/02/19 11:20 Abnormal Lab Findings: Abnormal Labs 04/02/19 04/02/19 04/02/19 11:20 11:20 13:15 Lymphocytes # 0.9 L Creatinine 0.58 L Glucose 326 H POC Glucose (mg/dL) Alkaline Phosphatase 151 H Urine Glucose (UA) 4+ H Urine Ketones 4+ H Urine Blood Trace H Ur Leukocyte Esterase Moderate H Urine WBC 41 H Urine Bacteria Rare H Urine Mucus Rare H Ur Oxycodone Screen Detected H 04/02/19 13:45 Lymphocytes # Creatinine Glucose POC Glucose (mg/dL) 273 H Alkaline Phosphatase Urine Glucose (UA) Urine Ketones Urine Blood Ur Leukocyte Esterase Urine WBC Urine Bacteria Urine Mucus Ur Oxycodone Screen - Diagnostic Findings Additional findings: CT head without contrast 04/02/2019. Evidence of prior right temporal craniotomy. Extra-axial dilatation of the right lateral ventricle and frontal horn. Encephalomalacia of the right temporal lobe, postoperative in nature. Focal decreased attenuation seen on image 27 of 55 that may reflect vascular insult, age indeterminate. No evidence of intracranial hemorrhage, mass effect or midline shift. No acute intracranial abnormalities are seen. Assessment and Plan Assessment: Localization related epilepsy- breakthrough seizure likely caused by low-dose LEV given his body weight, r/o new supratentorial structural explanation. Hypoattenuation on CT Head, age indeterminate. Unclear if this is a lynette andreia new vascular injury. Would prefer MR imaging for clarification. Plan: For seizure- -Given his body weight of 185.5kg and the standard therapeutic range of LEV 10- 40mg/kg/d divided bid with normal renal function, he should be on at least 1g po bid for maintenance. Will increase. -Monitor for AED side effects such as behavioral changes, dizziness, blurred vision, N/V, ataxia, rash. -Seizure precautions. -LEV level was ordered by primary team. This will take days to return as it is a send-off test. -Patient does not drive a vehicle except his power wheelchair. He should refrain from engaging in any physical activity that may endanger himself and/or others should he have recurrent seizure activity. Abnormal CT Head- -Obtain MRI Brain w wo irma, wo irma to assess for new CVA, w irma to assess for his h/o astrocytoma. -Patient does have copious vascular risk factors, i.e. HTN, DM, HL. -Primary team has ordered stroke work-up, i.e. carotid duplex, TTE. -His NIHSS is 9 but they are from his old neuro deficits s/p surgical resection of his astrocytoma. He currently does not have any new neuro deficits. -May treat BP to normotensive range. -Aspirin 325mg po qd -Statin therapy -Goals BP <130, hga1c <7.0 and LDL <70 -DVT prophylaxis: Heparin SC Neurology will not be available again until Friday04/05/19 at 8am. Thank you for this consultation. Please call with ?. Time with Patient: Greater than 30 (Time spent in direct patient care, greater than 50% of which was spent in [id number] counseling and coordination of care: 70 minutes.)
[2019-04-02 16:45] LABS: Glucose,Whole Blood 249 mg/dL (75-99)
--- NOTE | 2019-04-02 16:49 | US ---
EXAMINATION TYPE: US carotid duplex BILAT DATE OF EXAM: 04/02/2019 COMPARISON: NONE CLINICAL HISTORY: CVA. Patient states having mini seizures, hx brain cancer with 3 surgeries. HTN co ntrolled with meds. EXAM MEASUREMENTS: RIGHT: Peak Systolic Velocity (PSV) cm/sec ----- Right CCA: 74.6 ----- Right ICA: 61.8 ----- Right ECA: 104.8 ICA/CCA ratio: 0.8 RIGHT: End Diastole cm/sec ----- Right CCA: 9.8 ----- Right ICA: 5.7 ----- Right ECA: 11.1 LEFT: Peak Systolic Velocity (PSV) cm/sec ----- Left CCA: 71.3 ----- Left ICA: 55.9 ----- Left ECA: 87.5 ICA/CCA ratio: 0.8 LEFT: End Diastole cm/sec ----- Left CCA: 14.2 ----- Left ICA: 16.4 ----- Left ECA: 9.5 VERTEBRALS (direction of flow): Right Vertebral: Antegrade Left Vertebral: Antegrade Rhythm: Normal No wall thickening. No elevated velocities or significant stenosis. Plaque seen in bilateral bulbs. Waveform analysis does not show significant stenosis. Grayscale, color Doppler, spectral Doppler imaging performed of the carotid arteries. IMPRESSION: No hemodynamic significant stenosis of the proximal internal carotid arteries by Doppler criteria, an indirect measurement of carotid stenosis
[2019-04-02] MEDS: metFORMIN 500 MG TAB PO SCH (17:00)
[2019-04-02] MEDS: GABAPENTIN 400 MG CAP PO SCH ×2 (17:00→21:22)
[2019-04-02] MEDS: hydrALAZINE HCL 50 MG TAB PO SCH ×2 (17:00→21:22)
[2019-04-02] MEDS: INSULIN ASPART (NovoLOG) 100 UNIT/ML VIAL SQ SCH ×2 (17:01→21:21)
[2019-04-02] MEDS: HEPARIN SODIUM,PORCINE 5,000 UNIT/ML 1 ML VIAL SQ SCH (17:01)
[2019-04-02 17:11] VITALS: BMI 55.4
[2019-04-02 20:36] LABS: Glucose,Whole Blood 208 mg/dL (75-99)
[2019-04-02] MEDS ORDERED: INSULIN DETEMIR (LEVEMIR) 100 UNIT/ML SYR SQ SCH (21:00)
[2019-04-02] MEDS ORDERED: ATORVASTATIN 80 MG TAB PO SCH (21:00)
[2019-04-02] MEDS: levETIRAcetam 500 MG TAB PO SCH (21:22)
[2019-04-03] MEDS: HEPARIN SODIUM,PORCINE 5,000 UNIT/ML 1 ML VIAL SQ SCH ×2 (00:12→10:25)
[2019-04-03] MEDS: INSULIN ASPART (NovoLOG) 100 UNIT/ML VIAL SQ SCH ×2 (06:19→13:05)
[2019-04-03] MEDS: metFORMIN 500 MG TAB PO SCH (06:19)
[2019-04-03 06:26] LABS: Glucose,Whole Blood 212 mg/dL (75-99)
[2019-04-03 07:12] LABS: Basophils % (A) 1 %; Eosinophils # (A) 0.2 k/uL (0-0.7); Eosinophils % (A) 2 %; HGB 15.2 gm/dL (13.0-17.5); Lymphocytes # (A) 1.8 k/uL (1.0-4.8); Lymphocytes % (A) 25 %; MCH 30.1 pg (25.0-35.0); MCHC 31.7 g/dL (31.0-37.0); MCV 94.9 fL (80.0-100.0); Mean Platelet Volume 8.1; Monocytes # (A) 0.5 k/uL (0-1.0); Monocytes % (A) 7 %; Neutrophils # (A) 4.6 k/uL (1.3-7.7); Neutrophils % (A) 64 %; Platelet Count 204 k/uL (150-450); RBC 5.06 m/uL (4.30-5.90); RDW 13.2 % (11.5-15.5); WBC 7.2 k/uL (3.8-10.6)
[2019-04-03 07:29] LABS: ALT 36 U/L (21-72); AST 25 U/L (17-59); African American GFR (CKD) >90 (>60 ml/min/1.73 sqM); Albumin 3.5 g/dL (3.5-5.0); Alkaline Phosphatase 112 U/L (38-126); Anion Gap 8 mmol/L; Blood Urea Nitrogen 12 mg/dL (9-20); Calcium 9.4 mg/dL (8.4-10.2); Carbon Dioxide 28 mmol/L (22-30); Chloride 102 mmol/L (98-107); Glucose 228 mg/dL (74-99); Potassium 3.7 mmol/L (3.5-5.1); Sodium 138 mmol/L (137-145); Total Bilirubin 0.6 mg/dL (0.2-1.3); Total Protein 6.2 g/dL (6.3-8.2)
[2019-04-03] MEDS ORDERED: PANTOPRAZOLE 40 MG TABLET PO SCH (07:30)
--- NOTE | 2019-04-03 08:55 | ECHOF ---
Referral Reason:CVA MEASUREMENTS -------- HEIGHT: 182.9 cm WEIGHT: 185.5 kg BP: 138/88 RVIDd: 2.8 cm (< 3.3) IVSd: 1.5 cm (0.6 - 1.1) LVIDd: 4.7 cm (3.9 - 5.3) LVPWd: 1.5 cm (0.6 - 1.1) IVSs: 2.1 cm LVIDs: 3.2 cm LVPWs: 2.0 cm LA Diam: 3.6 cm (2.7 - 3.8) LAESV Index (A-L): 11.15 ml/m Ao Diam: 3.4 cm (2.0 - 3.7) AV Cusp: 2.2 cm (1.5 - 2.6) MV EXCURSION: 14.577 mm (> 18.000) MV EF SLOPE: 39 mm/s (70 - 150) EPSS: 1.0 cm MV E Barron: 0.70 m/s MV DecT: 234 ms MV A Barron: 0.84 m/s MV E/A Ratio: 0.84 FINDINGS -------- Sinus rhythm. This was a technically difficult study with suboptimal views. The left ventricular size is normal. There is moderate concentric left ventricular hypertrophy. O verall left ventricular systolic function is normal with, an EF between 60 - 65 %. The right ventricle is normal in size. Normal LA size by volume 22+/-6 ml/m2. The right atrium is normal in size. Lumason used Interatrial and interventricular septum intact. The aortic valve is trileaflet and appears structurally normal. The mitral valve is normal. The tricuspid valve appears structurally normal. The pulmonic valve was not well visualized. The aortic root size is normal. Normal inferior vena cava with normal inspiratory collapse consistent with estimated right atrial pre ssure of 5 mmHg. There is no pericardial effusion. CONCLUSIONS -------- 1. Sinus rhythm. 2. This was a technically difficult study with suboptimal views. 3. The left ventricular size is normal. 4. There is moderate concentric left ventricular hypertrophy. 5. Overall left ventricular systolic function is normal with, an EF between 60 - 65 %. 6. The right ventricle is normal in size. 7. Normal LA size by volume 22+/-6 ml/m2. 8. The right atrium is normal in size. 9. Lumason used 10. Interatrial and interventricular septum intact. 11. The aortic valve is trileaflet and appears structurally normal. 12. The mitral valve is normal. 13. The tricuspid valve appears structurally normal. 14. The pulmonic valve was not well visualized. 15. The aortic root size is normal. 16. Normal inferior vena cava with normal inspiratory collapse consistent with estimated right atrial pressure of 5 mmHg. 17. There is no pericardial effusion. DEVELOPMENT GEOLOGIST: Mini Montero RDCS
[2019-04-03] MEDS ORDERED: TAMSULOSIN 0.4 MG CAP.ER.24H PO SCH (09:00)
[2019-04-03] MEDS ORDERED: MULTIVITAMINS, THERA 1 EACH TAB PO SCH (09:00)
[2019-04-03] MEDS ORDERED: INSULIN DETEMIR (LEVEMIR) 100 UNIT/ML SYR SQ SCH (09:00)
[2019-04-03] MEDS ORDERED: LOSARTAN 50 MG TAB PO SCH (09:00)
[2019-04-03] MEDS ORDERED: FUROSEMIDE 20 MG TAB PO SCH (09:00)
[2019-04-03] MEDS ORDERED: DULoxetine HCL 60 MG CAPSULE.DR PO SCH (09:00)
[2019-04-03] MEDS: GABAPENTIN 400 MG CAP PO SCH (10:24)
[2019-04-03] MEDS: levETIRAcetam 500 MG TAB PO SCH (10:24)
[2019-04-03] MEDS: SODIUM CHLORIDE 0.9% 1,000 ML IV SCH (10:25)
[2019-04-03] MEDS: hydrALAZINE HCL 50 MG TAB PO SCH (10:25)
[2019-04-03 11:55] LABS: Glucose,Whole Blood 259 mg/dL (75-99)
[2019-04-03 13:49] VITALS: RESP 18; TEMP 98.3
[2019-04-03 13:58] VITALS: BP 171/87; PULSE 82
--- NOTE | 2019-04-03 20:37 | P.DS ---
Providers Date of admission: 04/02/19 13:38 Expected date of discharge: 04/03/19 Attending physician: Shankar Alvarez Consults: 04/02/19 13:38 Consult Physician Routine Consulting Provider: Shahriar Velazquez Consult Reason/Comments: focal seizure, concern for CVA Do you want consulting provider notified?: Yes Primary care physician: Kathryn Vo [facility] Course: This is a 48-year-old male one of Dr. 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, seizure disorder, hypertension and hypertensive cardiovascular disease, diabetes mellitus type 2, morbid obesity with obstructive sleep apnea, patient was in his usual state of health with his caregiver when he developed to have a significant left-sided muscle and he has gone into seizure activity for about this is followed by another seizure lasted for about 45 seconds that was witnessed by the EMS and the patient was tr ansported to the emergency department at [facility] where the patient developed to have a tonic-clonic seizure without any loss of consciousness and without any urinary or stool incontinence and he did not bite his tongue, patient had a computed tomography scan of the brain that showed beside the encephalomalacia due to the prior surgical intervention what appears to be in hypoattenuation area suggestive of an vascular insult, patient stated that he had an MRI done prolonged ago at the [facility] we will try to get the result from the office, and the patient he stated that he has been following with Dr. Fahad Blair from neurology at [facility] and the last time he was seen by him about 2 months ago, patient will be admitted to the hospital he was seen in consultation by neurology and his Keppra dose will be adjusted, patient will be placed on seizure precautions as well, full acute stroke evaluation will be done including ultrasound the carotid echocardiogram he will maintain an antiplatelet therapy as well. 04/03: Patient was noted to have another focal seizure tonic-clonic, as per nursing staff that has witnessed this, patient also is unable to undergo the brain MRI in our facility secondary to with restrictions, we've discussed this with the patient as there is no neurology covering for this weekend, and he is on IV Keppra 1000 mg every 12 hours was given 1 g load off Keppra, we've recommended his transfer to [facility], where his neurosurgeon is situated, [facility] not have a bed, however [facility] has a bed available, we have spoken to the transfer team with Dr. Humphries accepting physician, and they have accepted the patient for seizure episode with imaging studies, patient would follow with his own neurosurgeon as per his preference Patient Condition at Discharge: Fair Plan - Discharge Summary New Discharge Prescriptions: No Action Insulin Glargine [Lantus] 30 unit SQ HS Insulin Glargine [Lantus] 35 unit SQ DAILY Acetaminophen [Tylenol] 650 mg PO Q6H PRN MDD 6 TABS PRN Reason: Pain Or Fever > 100.5 Tamsulosin HCl [Flomax] 0.4 mg PO DAILY Atorvastatin Calcium [Lipitor] 80 mg PO HS metFORMIN HCL 1,000 mg PO BID levETIRAcetam [Keppra] 500 mg PO Q12HR Furosemide [Lasix] 20 mg PO DAILY Multivitamins, Thera [Multivitamin (formulary)] 1 tab PO DAILY Gabapentin 800 mg PO TID DULoxetine HCL [Cymbalta] 60 mg PO DAILY Cyanocobalamin [Vitamin B-12] 500 mcg PO MOTUWETHFR Celecoxib [CeleBREX] 200 mg PO DAILY Calcium Carbonate [Tums] 1,000 mg PO QID PRN PRN Reason: Heartburn hydrALAZINE HCL 50 mg PO TID Albuterol Inhaler [Ventolin Hfa Inhaler] 2 puff INHALATION RT-Q6H PRN PRN Reason: Shortness Of Breath Losartan [Cozaar] 50 mg PO DAILY Discharge Medication List Insulin Glargine [Lantus] 30 unit SQ HS 03/22/14 [History] Acetaminophen [Tylenol] 650 mg PO Q6H PRN MDD 6 TABS 04/02/19 [History] Albuterol Inhaler [Ventolin Hfa Inhaler] 2 puff INHALATION RT-Q6H PRN 04/02/19 [History] Atorvastatin Calcium [Lipitor] 80 mg PO HS 04/02/19 [History] Calcium Carbonate [Tums] 1,000 mg PO QID PRN 04/02/19 [History] Celecoxib [CeleBREX] 200 mg PO DAILY 04/02/19 [History] Cyanocobalamin [Vitamin B-12] 500 mcg PO MOTUWETHFR 04/02/19 [History] DULoxetine HCL [Cymbalta] 60 mg PO DAILY 04/02/19 [History] Furosemide [Lasix] 20 mg PO DAILY 04/02/19 [History] Gabapentin 800 mg PO TID 04/02/19 [History] Insulin Glargine [Lantus] 35 unit SQ DAILY 04/02/19 [History] Losartan [Cozaar] 50 mg PO DAILY 04/02/19 [History] Multivitamins, Thera [Multivitamin (formulary)] 1 tab PO DAILY 04/02/19 [History] Tamsulosin HCl [Flomax] 0.4 mg PO DAILY 04/02/19 [History] hydrALAZINE HCL 50 mg PO TID 04/02/19 [History] levETIRAcetam [Keppra] 500 mg PO Q12HR 04/02/19 [History] metFORMIN HCL 1,000 mg PO BID 04/02/19 [History] Follow up Appointment(s)/Referral(s): Kahtryn Vo MD [Primary Care Provider] - 1-2 days Discharge Disposition: OTHER INSTITUTION NOT DEFINED
[2019-04-05] MEDS ORDERED: CYANOCOBALAMIN 500 MCG TAB PO SCH (09:00)
== END 2019-04-03 14:40 | disposition short-term general hospital (02) | DRG 101 ==
LOC: EC 10:44 → 3SCARD 13:38
PROVIDERS: ADMIT Internal Medicine; ATTEND Internal Medicine
DX: G40.209 Localization-related (focal) (partial) symptomatic epilepsy and epileptic syndromes with complex partial seizures, not intractable, without status epilepticus (principal); N39.0 Urinary tract infection, site not specified; G81.94 Hemiplegia, unspecified affecting left nondominant side; Z68.42 Body mass index [BMI] 45.0-49.9, adult; E66.01 Morbid (severe) obesity due to excess calories; E11.65 Type 2 diabetes mellitus with hyperglycemia; R53.1 Weakness; E78.5 Hyperlipidemia, unspecified; I10 Essential (primary) hypertension; F32.9 Major depressive disorder, single episode, unspecified; F17.210 Nicotine dependence, cigarettes, uncomplicated; F41.9 Anxiety disorder, unspecified; E11.42 Type 2 diabetes mellitus with diabetic polyneuropathy; G47.33 Obstructive sleep apnea (adult) (pediatric); G93.89 Other specified disorders of brain; I11.9 Hypertensive heart disease without heart failure; N40.0 Benign prostatic hyperplasia without lower urinary tract symptoms; Z79.899 Other long term (current) drug therapy; Z79.4 Long term (current) use of insulin; Z83.3 Family history of diabetes mellitus; Z82.49 Family history of ischemic heart disease and other diseases of the circulatory system; Z98.890 Other specified postprocedural states; Z98.84 Bariatric surgery status; Z85.841 Personal history of malignant neoplasm of brain; Z79.1 Long term (current) use of non-steroidal anti-inflammatories (NSAID); Z99.89 Dependence on other enabling machines and devices
CPT/HCPCS: 36415; 70450; 80053; 80177; 80306; 80320; 81001; 83735; 85025; 87077; 87086; 87186; 93005; 93306; 93880; 96365; 96375; 99285

== ENCOUNTER 2019-04-06 11:47 | Emergency (ER) | payer MEDICARE ==
--- NOTE | 2019-04-06 12:01 | ED ---
General Adult HPI - General Stated complaint: stroke symptoms Time Seen by Provider: 04/06/19 11:47 Source: RN notes reviewed - History of Present Illness Initial comments: This is a 48-year-old male who presents to the emergency department with past medical history significant for a brain tumor with multiple surgeries. Patient also has a history of seizures. Patient according to caregivers had new onset of left-sided facial droop and then an episode of about 5-10 minutes of unresponsiveness but no tonic-clonic movement. He eventually came out of it was no postictal state and had 2 more episodes of unresponsiveness that lasted about 30 seconds apiece. Patient on arrival is able to answer all questions and states that his facial droop on the left has occurred in the past but as of yesterday he did not have any. Patient states she has complete left-sided paralysis of his arm and his leg. Patient denies any recent injury or trauma. Patient denies headache patient denies any recent fever chills or cough. Patien t denies any chest pain difficulty breathing or shortness of breath. - Related Data Home Medications Medication Instructions Recorded Confirmed Insulin Glargine [Lantus] 30 unit SQ HS 03/22/14 04/06/19 Acetaminophen [Tylenol] 650 mg PO Q6H PRN MDD 6 TABS 04/02/19 04/06/19 Albuterol Inhaler [Ventolin Hfa 2 puff INHALATION RT-Q6H PRN 04/02/19 04/06/19 Inhaler] Atorvastatin Calcium [Lipitor] 80 mg PO HS 04/02/19 04/06/19 Calcium Carbonate [Tums] 1,000 mg PO QID PRN 04/02/19 04/06/19 Celecoxib [CeleBREX] 200 mg PO DAILY 04/02/19 04/06/19 Cyanocobalamin [Vitamin B-12] 500 mcg PO MOTUWETHFR 04/02/19 04/06/19 DULoxetine HCL [Cymbalta] 60 mg PO DAILY 04/02/19 04/06/19 Furosemide [Lasix] 20 mg PO DAILY 04/02/19 04/06/19 Gabapentin 800 mg PO TID 04/02/19 04/06/19 Insulin Glargine [Lantus] 35 unit SQ DAILY 04/02/19 04/06/19 Losartan [Cozaar] 50 mg PO DAILY 04/02/19 04/06/19 Multivitamins, Thera [Multivitamin 1 tab PO DAILY 04/02/19 04/06/19 (formulary)] Tamsulosin HCl [Flomax] 0.4 mg PO DAILY 04/02/19 04/06/19 hydrALAZINE HCL 50 mg PO TID 04/02/19 04/06/19 levETIRAcetam [Keppra] 500 mg PO Q12HR 04/02/19 04/06/19 metFORMIN HCL 1,000 mg PO BID 04/02/19 04/06/19 Allergies Allergy/AdvReac Type Severity Reaction Status Date / Time lisinopril Allergy Unknown Verified 04/06/19 12:39 pioglitazone [From Actos] Allergy Unknown Verified 04/06/19 12:39 levetiracetam [From Keppra] AdvReac Confusion Verified 04/06/19 12:39 Review of Systems ROS Statement: Those systems with pertinent positive or pertinent negative responses have been documented in the HPI. ROS Other: All systems not noted in ROS Statement are negative. Past Medical History Past Medical History: Cancer, Diabetes Mellitus, Hyperlipidemia, Hypertension, Neurologic Disorder, Seizure Disorder, Sleep Apnea/CPAP/BIPAP Additional Past Medical History / Comment(s): Astrocytoma status post right temporal craniotomy. History of Any Multi-Drug Resistant Organisms: None Reported Past Surgical History: Bariatric Surgery Additional Past Surgical History / Comment(s): brain tumor grade 3 removed April, 2007, 2016, 2018. Lap band-removed 2013 Past Anesthesia/Blood Transfusion Reactions: No Reported Reaction, Unable to Obtain Past Psychological History: Anxiety, Depression Smoking Status: Current every day smoker Past Alcohol Use History: Occasional Past Drug Use History: None Reported - Past Family History Brother(s) Family Medical History: No Reported History Sister(s) Family Medical History: No Reported History Son(s) Family Medical History: No Reported History Mother History Unknown: Yes Family Medical History: No Reported History Father Family Medical History: Congestive Heart Failure (CHF), Diabetes Mellitus General Exam - General Exam Comments Initial Comments: GENERAL: Patient is well-developed and well-nourished. Patient is nontoxic and well- hydrated and is in mild distress. ENT: Neck is soft and supple. No significant lymphadenopathy is noted. Oropharynx is clear. Moist mucous membranes. Neck has full range of motion without eliciting any pain. EYES: The sclera were anicteric and conjunctiva were pink and moist. Eyelids were unremarkable. PULMONARY: Unlabored respirations. Good breath sounds bilaterally. No audible rales rhonchi or wheezing was noted. CARDIOVASCULAR: There is a regular rate and rhythm without any murmurs gallops or rubs. ABDOMEN: Soft and nontender with normal bowel sounds. SKIN: Skin is clear with no lesions or rashes and otherwise unremarkable. NEUROLOGIC: Patient is alert and oriented x3. Patient extraocular motion is limited to left and right hand seems to be unable to look up or down or may not understand at this time. Patient has left-sided facial droop forehead eyelid and side of his left face. Patient is unable to move his left arm or leg which she states is normal. MUSCULOSKELETAL: Normal extremities with adequate strength and full range of motion. LYMPHATICS: No significant lymphadenopathy is noted PSYCHIATRIC: Normal psychiatric evaluation. Course Vital Signs 04/06/19 04/06/19 04/06/19 11:50 12:15 12:30 Temperature 98.0 F Pulse Rate 106 H 112 H 97 Respiratory 15 19 21 Rate Blood Pressure 156/105 172/111 165/118 O2 Sat by Pulse 98 98 98 Oximetry 04/06/19 04/06/19 13:25 14:15 Temperature 98.0 F Pulse Rate 85 85 Respiratory 18 13 Rate Blood Pressure 148/97 132/78 O2 Sat by Pulse 96 96 Oximetry Medical Decision Making - Medical Decision Making EKG shows normal sinus rhythm at 95 bpm ID interval 272 QRS 116 QT interval 36 QTC is 485. Patient's EKG shows no ST segment elevation I spoke with Dr. Pena and he saw the CT of the head as well as CTA recommended that the patient gets 1000 of Keppra but no TPA and no intervention at this time was indicated. He also stated that her blood pressure under 220/120 was fine and did not need to be treated. I gave the patient thousand milligrams of Keppra. I spoke with Dr. Vo she did not want to admit the patient to our facility and she recommended was transferring the patient to [facility]. I spoke with [facility] and Dr. Naranjo except that the patient - Lab Data Result diagrams: 04/06/19 12:05 04/06/19 12:05 Lab Results 04/06/19 04/06/19 04/06/19 Range/Units 12:00 12:05 12:05 WBC 6.6 (3.8-10.6) k/uL RBC 5.21 (4.30-5.90) m/uL Hgb 16.0 (13.0-17.5) gm/dL Hct 49.8 (39.0-53.0) % MCV 95.6 (80.0-100.0) fL MCH 30.8 (25.0-35.0) pg MCHC 32.2 (31.0-37.0) g/dL RDW 13.3 (11.5-15.5) % Plt Count 197 (150-450) k/uL Neutrophils % 65 % Lymphocytes % 20 % Monocytes % 10 % Eosinophils % 3 % Basophils % 0 % Neutrophils # 4.3 (1.3-7.7) k/uL Lymphocytes # 1.3 (1.0-4.8) k/uL Monocytes # 0.6 (0-1.0) k/uL Eosinophils # 0.2 (0-0.7) k/uL Basophils # 0.0 (0-0.2) k/uL PT (9.0-12.0) sec INR (<1.2) APTT (22.0-30.0) sec Sodium 138 (137-145) mmol/L Potassium 4.5 (3.5-5.1) mmol/L Chloride 102 (98-107) mmol/L Carbon Dioxide 28 (22-30) mmol/L Anion Gap 8 mmol/L BUN 15 (9-20) mg/dL Creatinine 0.65 L (0.66-1.25) mg/dL Est GFR (CKD-EPI)AfAm >90 (>60 ml/min/1.73 sqM) Est GFR (CKD-EPI)NonAf >90 (>60 ml/min/1.73 sqM) Glucose 369 H (74-99) mg/dL POC Glucose (mg/dL) 338 H (75-99) mg/dL POC Glu Space Officer ID Natty Schultz Calcium 9.4 (8.4-10.2) mg/dL Total Bilirubin 0.7 (0.2-1.3) mg/dL AST 54 (17-59) U/L ALT 51 (21-72) U/L Alkaline Phosphatase 173 H (38-126) U/L Troponin I (0.000-0.034) ng/mL Total Protein 6.4 (6.3-8.2) g/dL Albumin 3.6 (3.5-5.0) g/dL 04/06/19 04/06/19 Range/Units 12:05 12:05 WBC (3.8-10.6) k/uL RBC (4.30-5.90) m/uL Hgb (13.0-17.5) gm/dL Hct (39.0-53.0) % MCV (80.0-100.0) fL MCH (25.0-35.0) pg MCHC (31.0-37.0) g/dL RDW (11.5-15.5) % Plt Count (150-450) k/uL Neutrophils % % Lymphocytes % % Monocytes % % Eosinophils % % Basophils % % Neutrophils # (1.3-7.7) k/uL Lymphocytes # (1.0-4.8) k/uL Monocytes # (0-1.0) k/uL Eosinophils # (0-0.7) k/uL Basophils # (0-0.2) k/uL PT 9.5 (9.0-12.0) sec INR 0.9 (<1.2) APTT 23.5 (22.0-30.0) sec Sodium (137-145) mmol/L Potassium (3.5-5.1) mmol/L Chloride (98-107) mmol/L Carbon Dioxide (22-30) mmol/L Anion Gap mmol/L BUN (9-20) mg/dL Creatinine (0.66-1.25) mg/dL Est GFR (CKD-EPI)AfAm (>60 ml/min/1.73 sqM) Est GFR (CKD-EPI)NonAf (>60 ml/min/1.73 sqM) Glucose (74-99) mg/dL POC Glucose (mg/dL) (75-99) mg/dL POC Glu Space Officer ID Calcium (8.4-10.2) mg/dL Total Bilirubin (0.2-1.3) mg/dL AST (17-59) U/L ALT (21-72) U/L Alkaline Phosphatase (38-126) U/L Troponin I <0.012 (0.000-0.034) ng/mL Total Protein (6.3-8.2) g/dL Albumin (3.5-5.0) g/dL Disposition Clinical Impression: TIA (transient ischemic attack), Seizure Disposition: OTHER INSTITUTION NOT DEFINED Referrals: Kathryn Vo MD [Primary Care Provider] - 1-2 days Time of Disposition: 15:55 - Out of Hospital Transfer - Req. Specs Out of Hospital Transfer - Requested Specifics: Other Emergency Center ([facility])
[2019-04-06 12:03] LABS: Glucose,Whole Blood 338 mg/dL (75-99)
--- NOTE | 2019-04-06 12:16 | CT ---
EXAMINATION TYPE: CT brain wo con for TPA DATE OF EXAM: 04/06/2019 COMPARISON: 04/02/2019 HISTORY: 48-year-old male Left sided facial droop, history of left sided weakness TECHNIQUE: Examination was done in axial plane without intravenous contrast. Coronal and sagittal r econstructions performed. CT DLP: No dose until CTA mGycm Automated exposure control for dose reduction was used. FINDINGS: Mild motion and calvarial artifact. Prior craniotomy flap along the right lateral convexity. Underlying cortical and subcortical hypodens ity right lateral frontal lobe is unchanged from 03/25/2019 but noted to be new from 09/03/2015. Extensive encephalomalacia within the right middle cranial fossa suggesting a resection cavity. There is secondary ex vacuo enlargement of the right lateral ventricle. Prominent rounded soft tissue centered along the left basal ganglia/left thalamus measuring 3.7 cm. Rightward midline shift of 8 mm versus 10 mm, previously. No evidence for acute intracranial hemorrhage or herniation. Paranasal sinuses and mastoid air cells are well pneumatized. Orbits and globes are intact. IMPRESSION: 1. Motion artifacts. Right lateral craniotomy flap with stable underlying cortical and subcortical hy podensity lateral right frontal lobe as compared to 03/25/2019 represent an area of subacute to chroni c ischemia. New from 2014. 2. Prior resection cavity right middle cranial fossa is unchanged. Ex vacuo enlargement of the right lateral ventricle, progressed from 2014, stable from 04/02/2019. 3. Redemonstrated rightward midline shift currently measured at 8 mm versus 10 mm on 04/02/2019. This may be secondary to volume loss in the right hemicranium. Given subtle rounded prominence in the robert on of the left basal ganglia/left thalamus, recommend contrast enhanced MRI to exclude underlying mas s causing the mass effect. 4. No acute intracranial hemorrhage seen.
[2019-04-06 12:39] VITALS: TEMP 98
[2019-04-06 12:42] LABS: Basophils % (A) 0 %; Eosinophils # (A) 0.2 k/uL (0-0.7); Eosinophils % (A) 3 %; HCT 49.8 % (39.0-53.0); Lymphocytes # (A) 1.3 k/uL (1.0-4.8); Lymphocytes % (A) 20 %; MCH 30.8 pg (25.0-35.0); MCHC 32.2 g/dL (31.0-37.0); MCV 95.6 fL (80.0-100.0); Mean Platelet Volume 7.9; Monocytes # (A) 0.6 k/uL (0-1.0); Monocytes % (A) 10 %; Neutrophils # (A) 4.3 k/uL (1.3-7.7); Neutrophils % (A) 65 %; Platelet Count 197 k/uL (150-450); RBC 5.21 m/uL (4.30-5.90); RDW 13.3 % (11.5-15.5); WBC 6.6 k/uL (3.8-10.6)
[2019-04-06 12:53] LABS: ALT 51 U/L (21-72); AST 54 U/L (17-59); African American GFR (CKD) >90 (>60 ml/min/1.73 sqM); Albumin 3.6 g/dL (3.5-5.0); Alkaline Phosphatase 173 U/L (38-126); Anion Gap 8 mmol/L; Blood Urea Nitrogen 15 mg/dL (9-20); Calcium 9.4 mg/dL (8.4-10.2); Carbon Dioxide 28 mmol/L (22-30); Chloride 102 mmol/L (98-107); Glucose 369 mg/dL (74-99); Potassium 4.5 mmol/L (3.5-5.1); Sodium 138 mmol/L (137-145); Total Bilirubin 0.7 mg/dL (0.2-1.3); Total Protein 6.4 g/dL (6.3-8.2)
--- NOTE | 2019-04-06 12:56 | CT ---
EXAMINATION TYPE: CT angio head neck DATE OF EXAM: 04/06/2019 COMPARISON: Correlation CT brain same day HISTORY: 48-year-old male Left sided facial droop, history of left sided weakness TECHNIQUE: Contiguous axial scanning of the head and neck performed with IV Contrast, patient injecte d with a total of 100-scanned twice (seizure in first scan) mL of Isovue 370. Coronal/sagittal MIP re constructions performed. 3-D processing was unsuccessful due to the degree of poor contrast opacifica tion. CT DLP: 2150.4 mGycm Automated exposure control for dose reduction was used. FINDINGS: HEAD: There is visualization of the bilateral vertebral arteries and the basilar artery. Suboptimal degree of contrast density for adequate assessment of the ICA vessels, anterior circulation branches, and th e remainder of the posterior circulation branches. NECK: Conventional arch vessel branching anatomy. Right common carotid artery appears patent. Mild atherosclerotic calcifications at the right carotid bulb resulting in mild, less than 30% proxim al ICA stenosis. Left common carotid artery is patent. Moderate atherosclerotic calcifications at the left carotid bul b resulting in mild, less than 50% proximal ICA stenosis. The bilateral vertebral artery origins appear patent. Vessels show limited degree of opacification bu t appear grossly patent. IMPRESSION: NECK: 1. THE PATIENT WAS BOLUSED TWICE. THE FIRST TIME, EXAM WAS NONDIAGNOSTIC DUE TO PATIENT HAVING A SEIZ URE. THE SECOND TIME, THE DEGREE OF CONTRAST OPACIFICATION IS MARKEDLY LIMITED. NO HEMODYNAMICALLY SI GNIFICANT PROXIMAL ICA STENOSIS SEEN ON EITHER SIDE. HEAD: 1. THE HEAD PORTION OF THE EXAM IS SUBOPTIMAL. THE DEGREE OF FAINT ICA AND ANTERIOR CIRCULATION OPACI FICATION MAKES ASSESSMENT ESSENTIALLY NONDIAGNOSTIC. 2. TO THE EXTENT VISUALIZED, THE V4 VERTEBRAL ARTERIES AND BASILAR ARTERY APPEAR PATENT.
[2019-04-06] MEDS ORDERED: levETIRAcetam IV 1,000 MG in SALINE 1 100ML.BAG IVPB STA (13:03)
[2019-04-06 13:13] LABS: INR 0.9 (<1.2); Partial Thromboplastin Time 23.5 sec (22.0-30.0); Prothrombin Time 9.5 sec (9.0-12.0)
[2019-04-06 13:26] VITALS: PULSE 85
[2019-04-06 14:32] VITALS: BP 132/78; RESP 13
== END 2019-04-06 16:30 | disposition short-term general hospital (02) ==
LOC: EC 11:47
DX: G45.9 Transient cerebral ischemic attack, unspecified (principal); G40.909 Epilepsy, unspecified, not intractable, without status epilepticus; G81.94 Hemiplegia, unspecified affecting left nondominant side; R29.810 Facial weakness; E11.9 Type 2 diabetes mellitus without complications; E78.5 Hyperlipidemia, unspecified; I10 Essential (primary) hypertension; G47.30 Sleep apnea, unspecified; F32.9 Major depressive disorder, single episode, unspecified; F41.9 Anxiety disorder, unspecified; F17.200 Nicotine dependence, unspecified, uncomplicated; Z88.8 Allergy status to other drugs, medicaments and biological substances; Z79.1 Long term (current) use of non-steroidal anti-inflammatories (NSAID); Z79.4 Long term (current) use of insulin; Z79.899 Other long term (current) drug therapy; Z85.841 Personal history of malignant neoplasm of brain; Z98.890 Other specified postprocedural states; Z99.89 Dependence on other enabling machines and devices
CPT/HCPCS: 36415; 93005; 80053; 84484; 85025; 85610; 85730; 70496; 70450; 70498; 99285; 96374; J1953; Q9967

== ENCOUNTER 2019-04-14 19:12 | Emergency (ER) | payer MEDICARE ==
[2019-04-14] MEDS ORDERED: SODIUM CHLORIDE 0.9% 1,000 ML IV STA (19:27)
[2019-04-14] MEDS ORDERED: levETIRAcetam IV 1,000 MG in SALINE 1 100ML.BAG IVPB STA (19:27)
[2019-04-14] MEDS ORDERED: DIAZEPAM 5 MG/ML 2 ML INJ IVP STA (19:27)
[2019-04-14 19:32] VITALS: RESP 18
[2019-04-14 19:45] LABS: Basophils % (A) 1 %; Eosinophils # (A) 0.2 k/uL (0-0.7); Eosinophils % (A) 3 %; HCT 44.3 % (39.0-53.0); HGB 14.4 gm/dL (13.0-17.5); Lymphocytes # (A) 1.5 k/uL (1.0-4.8); Lymphocytes % (A) 23 %; MCHC 32.4 g/dL (31.0-37.0); MCV 95.4 fL (80.0-100.0); Mean Platelet Volume 7.9; Monocytes # (A) 0.4 k/uL (0-1.0); Monocytes % (A) 6 %; Neutrophils # (A) 4.3 k/uL (1.3-7.7); Neutrophils % (A) 66 %; Platelet Count 191 k/uL (150-450); RBC 4.65 m/uL (4.30-5.90); RDW 13.1 % (11.5-15.5); WBC 6.5 k/uL (3.8-10.6)
--- NOTE | 2019-04-14 19:46 | ED ---
Seizure HPI - General Chief Complaint: Seizure Stated Complaint: Seizure Time Seen by Provider: 04/14/19 19:27 Source: patient, EMS, RN notes reviewed, old records reviewed Mode of arrival: EMS Limitations: physical limitation - History of Present Illness Initial Comments: This is a 48-year-old male the ER for evaluation. Patient does say for evaluation regarding seizure persistent seizure. Recent brain mass with evacuation. Patient didn't recurrent seizures since. Patient resents today for seizures. Patient is on Keppra now on Tegretol and still having breakthrough seizures just like today. Patient is now currently no longer postictal awake and alert and answering questions appropriately, not having any complaint MD Complaint: seizure -: minutes(s) Description of Episode: loss of consciousness, tonic-clonic movement, post-event confusion -: minutes(s) Witnessed: yes - by bystander, yes - by EMS Trauma: No Seizure History: known seizure disorder Place: home Possible Precipitating Event: none Associated Symptoms: denies other symptoms Treatments Prior to Arrival: none - Related Data Home Medications Medication Instructions Recorded Confirmed Insulin Glargine [Lantus] 30 unit SQ HS 03/22/14 04/14/19 Acetaminophen [Tylenol] 650 mg PO Q6H PRN 04/02/19 04/14/19 Albuterol Inhaler [Ventolin Hfa 2 puff INHALATION RT-Q6H PRN 04/02/19 04/14/19 Inhaler] Atorvastatin Calcium [Lipitor] 80 mg PO HS 04/02/19 04/14/19 Calcium Carbonate [Tums] 1,000 mg PO QID PRN 04/02/19 04/14/19 Celecoxib [CeleBREX] 200 mg PO DAILY 04/02/19 04/14/19 Cyanocobalamin [Vitamin B-12] 500 mcg PO MOTUWETHFR 04/02/19 04/14/19 DULoxetine HCL [Cymbalta] 60 mg PO DAILY 04/02/19 04/14/19 Furosemide [Lasix] 20 mg PO DAILY 04/02/19 04/14/19 Gabapentin 800 mg PO TID 04/02/19 04/14/19 Insulin Glargine [Lantus] 35 unit SQ DAILY 04/02/19 04/14/19 Losartan [Cozaar] 50 mg PO DAILY 06/28/19 07/10/19 Multivitamins, Thera [Multivitamin 1 tab PO DAILY 04/02/19 04/14/19 (formulary)] Tamsulosin HCl [Flomax] 0.4 mg PO DAILY 04/02/19 04/14/19 hydrALAZINE HCL 50 mg PO TID 04/02/19 04/14/19 levETIRAcetam [Keppra] 500 mg PO Q12HR 04/02/19 04/14/19 metFORMIN HCL 1,000 mg PO BID 04/02/19 04/14/19 Allergies Allergy/AdvReac Type Severity Reaction Status Date / Time lisinopril Allergy Unknown Verified 04/14/19 19:23 pioglitazone [From Actos] Allergy Unknown Verified 04/14/19 19:23 Review of Systems ROS Statement: Those systems with pertinent positive or pertinent negative responses have been documented in the HPI. ROS Other: All systems not noted in ROS Statement are negative. Past Medical History Past Medical History: Cancer, Diabetes Mellitus, Hyperlipidemia, Hypertension, Neurologic Disorder, Seizure Disorder, Sleep Apnea/CPAP/BIPAP Additional Past Medical History / Comment(s): Astrocytoma status post right temporal craniotomy. 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 Lap band-removed 2013 Past Anesthesia/Blood Transfusion Reactions: No Reported Reaction, Unable to Obtain Past Psychological History: Anxiety, Depression Smoking Status: Current every day smoker Past Alcohol Use History: Occasional Past Drug Use History: None Reported - Past Family History Brother(s) Family Medical History: No Reported History Sister(s) Family Medical History: No Reported History Son(s) Family Medical History: No Reported History Mother History Unknown: Yes Family Medical History: No Reported History Father Family Medical History: Congestive Heart Failure (CHF), Diabetes Mellitus General Exam Limitations: physical limitation Course Vital Signs 04/14/19 19:28 Temperature 98.6 F Pulse Rate 90 Respiratory 18 Rate Blood Pressure 140/90 O2 Sat by Pulse 95 Oximetry - Reevaluation(s) Reevaluation #1: 04/14/19 20:56 Medical records reviewed Reevaluation #2: 04/14/19 20:56 Patient remains awake alert with no recurrent seizure Medical Decision Making - Medical Decision Making 48 male who does present with recurrent seizure. Patient would like to go home, we'll call is neurologist in the morning. Will increase his Keppra dose. Patient is without current complaint no recurrent seizure here in the ER - Lab Data Result diagrams: 04/14/19 19:25 04/14/19 19:25 Lab Results 04/14/19 04/14/19 04/14/19 Range/Units 19:25 19:25 21:11 WBC 6.5 (3.8-10.6) k/uL RBC 4.65 (4.30-5.90) m/uL Hgb 14.4 (13.0-17.5) gm/dL Hct 44.3 (39.0-53.0) % MCV 95.4 (80.0-100.0) fL MCH 31.0 (25.0-35.0) pg MCHC 32.4 (31.0-37.0) g/dL RDW 13.1 (11.5-15.5) % Plt Count 191 (150-450) k/uL Neutrophils % 66 % Lymphocytes % 23 % Monocytes % 6 % Eosinophils % 3 % Basophils % 1 % Neutrophils # 4.3 (1.3-7.7) k/uL Lymphocytes # 1.5 (1.0-4.8) k/uL Monocytes # 0.4 (0-1.0) k/uL Eosinophils # 0.2 (0-0.7) k/uL Basophils # 0.0 (0-0.2) k/uL Sodium 136 L (137-145) mmol/L Potassium 4.7 (3.5-5.1) mmol/L Chloride 101 (98-107) mmol/L Carbon Dioxide 26 (22-30) mmol/L Anion Gap 9 mmol/L BUN 11 (9-20) mg/dL Creatinine 0.62 L (0.66-1.25) mg/dL Est GFR (CKD-EPI)AfAm >90 (>60 ml/min/1.73 sqM) Est GFR (CKD-EPI)NonAf >90 (>60 ml/min/1.73 sqM) Glucose 433 H (74-99) mg/dL Calcium 9.4 (8.4-10.2) mg/dL Total Bilirubin 0.4 (0.2-1.3) mg/dL AST 26 (17-59) U/L ALT 33 (21-72) U/L Alkaline Phosphatase 158 H (38-126) U/L Total Protein 6.2 L (6.3-8.2) g/dL Albumin 3.5 (3.5-5.0) g/dL Urine Color Light Yellow Urine Appearance Clear (Clear) Urine pH 5.5 (5.0-8.0) Ur Specific [place] 1.034 (1.001-1.035) Urine Protein Negative (Negative) Urine Glucose (UA) 4+ H (Negative) Urine Ketones 2+ H (Negative) Urine Blood Negative (Negative) Urine Nitrite Positive (Negative) Urine Bilirubin Negative (Negative) Urine Urobilinogen <2.0 (<2.0) mg/dL Ur Leukocyte Esterase Negative (Negative) Urine RBC 1 (0-5) /hpf Urine WBC 9 H (0-5) /hpf Ur Squamous Epith Cells <1 (0-4) /hpf Salicylates <1.0 mg/dL Urine Opiates Screen Not Detected (NotDetected) Ur Oxycodone Screen Not Detected (NotDetected) Urine Methadone Screen Not Detected (NotDetected) Ur Propoxyphene Screen Not Detected (NotDetected) Acetaminophen <10.0 ug/mL Ur Barbiturates Screen Not Detected (NotDetected) U Tricyclic Antidepress Not Detected (NotDetected) Ur Phencyclidine Scrn Not Detected (NotDetected) Ur Amphetamines Screen Not Detected (NotDetected) U Methamphetamines Scrn Not Detected (NotDetected) U Benzodiazepines Scrn Not Detected (NotDetected) Urine Cocaine Screen Not Detected (NotDetected) U Marijuana (THC) Screen Not Detected (NotDetected) Serum Alcohol <10 mg/dL - EKG Data -: EKG Interpreted by Me (EKG shows sinus rhythm rate of 87, SD 180, QRS 106, QTc 460) - Radiology Data Radiology results: report reviewed (CT of his brain is unchanged), image reviewed Disposition Clinical Impression: Epileptic seizure Disposition: HOME SELF-CARE Condition: Fair Is patient prescribed a controlled substance at d/c from ED?: No Referrals: Kathryn Vo MD [Primary Care Provider] - 1-2 days
[2019-04-14 19:57] LABS: ALT 33 U/L (21-72); AST 26 U/L (17-59); Acetaminophen <10.0 ug/mL; African American GFR (CKD) >90 (>60 ml/min/1.73 sqM); Albumin 3.5 g/dL (3.5-5.0); Alcohol <10 mg/dL; Alkaline Phosphatase 158 U/L (38-126); Anion Gap 9 mmol/L; Blood Urea Nitrogen 11 mg/dL (9-20); Calcium 9.4 mg/dL (8.4-10.2); Carbon Dioxide 26 mmol/L (22-30); Chloride 101 mmol/L (98-107); Glucose 433 mg/dL (74-99); Potassium 4.7 mmol/L (3.5-5.1); Salicylate <1.0 mg/dL; Sodium 136 mmol/L (137-145); Total Bilirubin 0.4 mg/dL (0.2-1.3); Total Protein 6.2 g/dL (6.3-8.2)
[2019-04-14 21:28] LABS: Appearance,Urine Clear (Clear); Bilirubin,Urine Negative (Negative); Blood,Urine Negative (Negative); Color,Urine Light Yellow; Glucose,Urine (UA) 4+ (Negative); Leukocyte Esterase,Urine Negative (Negative); Nitrite,Urine Positive (Negative); PH, Urine 5.5 (5.0-8.0); Protein,Urine Negative (Negative); RBC,Urine 1 /hpf (0-5); Specific Gravity,Urine 1.034 (1.001-1.035); Squamous Epithelial Cell,Urine <1 /hpf (0-4); Urobilinogen,Urine <2.0 mg/dL (<2.0)
[2019-04-14 21:29] LABS: Ketones,Urine 2+ (Negative)
[2019-04-14 21:33] LABS: Amphetamine Screen,Urine Not Detected (NotDetected); Barbiturate Screen,Urine Not Detected (NotDetected); Benzodiazepines Screen,Urine Not Detected (NotDetected); Cocaine Screen,Urine Not Detected (NotDetected); Methadone Screen, Urine Not Detected (NotDetected); Opiate Screen,Urine Not Detected (NotDetected); Oxycodone Screen, Urine Not Detected (NotDetected); Phencyclidine Screen,Urine Not Detected (NotDetected); Tricyclic Antidepressant,Urine Not Detected (NotDetected); Urn Cannabinoid Scrn Not Detected (NotDetected)
--- NOTE | 2019-04-14 21:45 | CT ---
EXAM: CT Head Without Intravenous Contrast CLINICAL HISTORY: ITS.REASON CT Reason: seizure activity TECHNIQUE: Axial computed tomography images of the head/brain without intravenous contrast. CTDI is 49.1 mGy and DLP is 1209.4 mGy-cm. This CT exam was performed using one or more of the following dose reduction techniques: automated exposure control, adjustment of the mA and/or kV according to patient size, and/or use of iterative reconstruction technique. COMPARISON: No relevant prior studies available. FINDINGS: See Impression. IMPRESSION: Redemonstration of areas of low attenuation along the right frontoparietal region which may reflect subacute infarct. This has not significantly changed. No new acute infarct in the interval. No acute intracranial hemorrhage. Right temporal craniotomy with postoperative encephalomalacia. Ex vacuo dilatation of the right lateral ventricle frontal horn. No other change from before.
[2019-04-14 23:00] VITALS: BP 135/73; PULSE 75; TEMP 98.3
== END 2019-04-14 23:01 | disposition home or self-care (01) ==
LOC: EC 19:12
DX: G40.909 Epilepsy, unspecified, not intractable, without status epilepticus (principal); E11.9 Type 2 diabetes mellitus without complications; E78.5 Hyperlipidemia, unspecified; I10 Essential (primary) hypertension; G47.30 Sleep apnea, unspecified; F41.9 Anxiety disorder, unspecified; F32.9 Major depressive disorder, single episode, unspecified; F17.200 Nicotine dependence, unspecified, uncomplicated; Z85.841 Personal history of malignant neoplasm of brain; Z98.84 Bariatric surgery status; Z98.890 Other specified postprocedural states; Z99.89 Dependence on other enabling machines and devices; Z79.1 Long term (current) use of non-steroidal anti-inflammatories (NSAID); Z79.4 Long term (current) use of insulin; Z79.899 Other long term (current) drug therapy; Z88.8 Allergy status to other drugs, medicaments and biological substances
CPT/HCPCS: 36415; 93005; 80053; 85025; 81001; 80306; 83520; 70450; 99285; 96365; 96375; 96361 ×2; G0480 ×2; J3360; J1953; 80320; 80329

== ENCOUNTER → 2019-06-01 | Outpatient (CLI) | payer MEDICARE | END | disposition home or self-care (01) | LOC: CPPFTMAIN 12:49 | PROVIDERS: ATTEND Internal Medicine Hematology & Oncology | DX: Z01.818 Encounter for other preprocedural examination (principal); C71.9 Malignant neoplasm of brain, unspecified; J44.9 Chronic obstructive pulmonary disease, unspecified | CPT/HCPCS: 94060; 94729 ==

== ENCOUNTER → 2019-12-28 | Outpatient (CLI) | payer OTHER ==
--- NOTE | 2019-12-29 10:29 | P.ARTDOP ---
Arterial Doppler LOWER EXTREMITY ARTERIAL DOPPLER: DATE OF SERVICE: 12/28/2019 Reason for study: Left foot ulcer. Doppler waveforms: Difficulty with exam due to patient's inability get out of a chair. Multiphasic at both ankle and foot Pulse volume recording: Normal configuration and the toes. Pressure gradients: None. Ankle-brachial indices: Greater than 1 bilaterally. Toe brachial indices: 0.88 on the right, 0.73 on the left Impression: Limited but normal study regarding perfusion distally..
== END | disposition home or self-care (01) ==
LOC: RADUSWWP 13:24
PROVIDERS: ATTEND Family Medicine
DX: L89.893 Pressure ulcer of other site, stage 3 (principal); E11.621 Type 2 diabetes mellitus with foot ulcer; G81.94 Hemiplegia, unspecified affecting left nondominant side; E11.65 Type 2 diabetes mellitus with hyperglycemia; Z85.841 Personal history of malignant neoplasm of brain
CPT/HCPCS: 93922

== ENCOUNTER → 2020-01-18 | Outpatient (CLI) | payer MEDICARE ==
--- NOTE | 2020-01-18 13:40 | NM ---
EXAMINATION TYPE: NM bone 3 phase DATE OF EXAM: 01/18/2020 COMPARISON: Radiograph 12/23/2019 HISTORY: 49-year-old male M86.9, osteomyelitis. Pain lateral aspect of the foot, possible friction fr om shoe. Technique: Triple phase bone scintigraphy was performed following the injection of 25.2 mCi Tc 99m MD P. Immediate images and 3.5 hours post injection images acquired. Images centered along the distal a spect of the bilateral lower extremities. FINDINGS: There is slight asymmetry with increased flow to the medial left forefoot on the anterior projection. Pool images show corresponding asymmetric increased uptake. However, this does not persist on delayed images. Delayed images show patchy increased uptake within the bilateral midfoot regions, likely degenerative . Tiny focus of increased uptake is noted at the level of the fifth metatarsal head. IMPRESSION: 1. Along the lateral aspect of the left fifth metatarsal head, there is tiny focus of subtle increase d delayed activity, possible early bunionette changes. No convincing three-phase bone scan findings o f osteomyelitis here at this time. Radiographic follow-up as indicated. 2. Increased soft tissue activity medial aspect of the left forefoot. Correlate to exclude soft tissu e injury or cellulitis. 3. Bilateral increased midfoot osseous activity suggests degenerative change.
== END | disposition home or self-care (01) ==
LOC: RADNMMAIN 08:21
PROVIDERS: ATTEND Internal Medicine Infectious Disease
DX: M79.9 Soft tissue disorder, unspecified (principal); M89.8X7 Other specified disorders of bone, ankle and foot; Z88.8 Allergy status to other drugs, medicaments and biological substances
CPT/HCPCS: 78315; A9503

== ENCOUNTER → 2020-06-15 | Outpatient (CLI) | payer MEDICARE ==
[2020-06-15 15:36] LABS: Basophils % (A) 0 %; Eosinophils # (A) 0.2 k/uL (0-0.7); Eosinophils % (A) 2 %; HCT 43.9 % (39.0-53.0); HGB 13.7 gm/dL (13.0-17.5); Lymphocytes # (A) 0.8 k/uL (1.0-4.8); Lymphocytes % (A) 9 %; MCH 33.8 pg (25.0-35.0); MCHC 31.2 g/dL (31.0-37.0); MCV 108.3 fL (80.0-100.0); Macrocytosis Moderate; Mean Platelet Volume 7.4; Monocytes # (A) 0.9 k/uL (0-1.0); Monocytes % (A) 9 %; Neutrophils # (A) 7.5 k/uL (1.3-7.7); Neutrophils % (A) 79 %; Platelet Count 175 k/uL (150-450); RBC 4.05 m/uL (4.30-5.90); RDW 13.2 % (11.5-15.5); WBC 9.5 k/uL (3.8-10.6)
[2020-06-16 02:06] LABS: African American GFR (CKD) 115.8 (60.0-200.0); Albumin 4.1 g/dL (3.80-4.90); Albumin/Globulin Ratio 2.05 (1.60-3.17); Anion Gap 7.9 mmol/L (4.00-12.00); Calcium 9.6 mg/dL (8.7-10.3); Carbon Dioxide 28.1 mmol/L (21.6-31.8); Chol/HDL Ratio 3.06; LDL Cholesterol,Calculated 42.6 mg/dL (0.0-131.0); Non-African American GFR(CKD) 99.9 (60.0-200.0); Potassium 4.6 mmol/L (3.5-5.5); Total Bilirubin 0.3 mg/dL (0.2-1.2); Total Protein 6.1 g/dL (6.2-8.2); VLDL Calculation 27.4 mg/dL (5.00-40.00)
[2020-06-16 04:18] LABS: Hemoglobin A1C 6.8 % (4.0-6.0)
== END | disposition home or self-care (01) ==
LOC: LABWHC1 14:17
PROVIDERS: ATTEND Family Medicine
DX: E11.65 Type 2 diabetes mellitus with hyperglycemia (principal); I10 Essential (primary) hypertension; G81.94 Hemiplegia, unspecified affecting left nondominant side; R10.10 Upper abdominal pain, unspecified
CPT/HCPCS: 36415; 80053; 80061; 83036; 83690; 84443; 85025

== ENCOUNTER 2020-07-17 11:03 | Emergency (ER) | payer MEDICARE ==
[2020-07-17] MEDS ORDERED: SODIUM CHLORIDE 0.9% 1,000 ML IV STA (11:08)
[2020-07-17] MEDS ORDERED: fentaNYL (PF) 50 MCG/ML 2 ML AMP IV STA (11:08)
[2020-07-17 11:09] VITALS: TEMP 97.8
[2020-07-17] MEDS ORDERED: DIPH,PERTUS(ACELL)TETVAC-LF 0.5 ML VIAL IM ONE (11:09)
[2020-07-17 11:49] LABS: Basophils % (A) 0 %; Eosinophils # (A) 0.1 k/uL (0-0.7); Eosinophils % (A) 2 %; HCT 41.5 % (39.0-53.0); HGB 13.3 gm/dL (13.0-17.5); Lymphocytes # (A) 0.6 k/uL (1.0-4.8); Lymphocytes % (A) 11 %; MCH 34.4 pg (25.0-35.0); MCHC 32.1 g/dL (31.0-37.0); MCV 107.3 fL (80.0-100.0); Macrocytosis Moderate; Mean Platelet Volume 7.6; Monocytes # (A) 0.4 k/uL (0-1.0); Monocytes % (A) 7 %; Neutrophils # (A) 4.4 k/uL (1.3-7.7); Neutrophils % (A) 78 %; Platelet Count 169 k/uL (150-450); RBC 3.87 m/uL (4.30-5.90); RDW 12.9 % (11.5-15.5); WBC 5.7 k/uL (3.8-10.6)
[2020-07-17 11:50] LABS: ALT 46 U/L (4-49); AST 35 U/L (17-59); African American GFR (CKD) >90 (>60 ml/min/1.73 sqM); Albumin 3.4 g/dL (3.5-5.0); Alkaline Phosphatase 183 U/L (38-126); Anion Gap 5 mmol/L; Blood Urea Nitrogen 35 mg/dL (9-20); Calcium 9.1 mg/dL (8.4-10.2); Carbon Dioxide 27 mmol/L (22-30); Chloride 106 mmol/L (98-107); Creatine Kinase 68 U/L (55-170); Glucose 122 mg/dL (74-99); Magnesium 1.8 mg/dL (1.6-2.3); Non-African American GFR(CKD) >90 (>60 ml/min/1.73 sqM); Potassium 4.4 mmol/L (3.5-5.1); Sodium 138 mmol/L (137-145); Total Bilirubin 0.6 mg/dL (0.2-1.3); Total Protein 5.9 g/dL (6.3-8.2)
--- NOTE | 2020-07-17 12:04 | XR ---
EXAMINATION TYPE: XR tibia fibula LT DATE OF EXAM: 07/17/2020 CLINICAL HISTORY: Fall. TECHNIQUE: Two views of the left tibia and fibula are obtained. COMPARISON: None. FINDINGS: There is a markedly displaced obliquely oriented fracture of the distal tibia diaphysis, w ith lateral displacement and approximately 2 cm of shortening of the proximal tibia fracture fragment in relation to the distal tibia. There is a moderately displaced comminuted fracture of the distal f ibula metadiaphysis with anterolateral displacement and approximately 2 cm of shortening of the proxi mal fibular fracture fragment. No dislocation. The knee and ankle joints appear maintained. No signif icant soft tissue of normality. Normal osseous mineralization. IMPRESSION: 1. Markedly displaced and shortened oblique fracture of the distal tibial diaphysis. 2. Moderately displaced and shortened comminuted fracture of the distal fibular metadiaphysis.
--- NOTE | 2020-07-17 12:17 | ED ---
Trauma HPI <Mihai Deleon - Last Filed: 07/17/20 12:53> - General Source: patient, RN notes reviewed Mode of arrival: EMS Limitations: no limitations - History of Present Illness MD Complaint: fall, injury <SantiDeshaun - Last Filed: 07/17/20 13:40> - General Chief Complaint: Trauma Stated Complaint: fall, ankle injury Time Seen by Provider: 07/17/20 11:03 - History of Present Illness Initial Comments: This a 50-year-old male with a history of brain cancer and who is now receiving radiation WITH RADIATION THERAPY TODAY WHEN HE WENT TO GET ON A EMS when he went to [facility] and his left leg gave out. He does have left-sided hemiparesis from the brain tumor. Complains of left-sided leg pain per paramedics he appears have an open fracture of the distal tib-fib. Dressing was applied. There was some bleeding noted. Also complains some left hip pain. No other complaints no head neck or back pain (Deshaun Hancock) - Related Data Home Medications Medication Instructions Recorded Confirmed Insulin Glargine [Lantus] 30 unit SQ HS 03/22/14 04/14/19 Acetaminophen [Tylenol] 650 mg PO Q6H PRN 04/02/19 04/14/19 Albuterol Inhaler (Mhu) [Ventolin 2 puff INHALATION RT-Q6H PRN 04/02/19 04/14/19 Hfa Inhaler] Atorvastatin Calcium [Lipitor] 80 mg PO HS 04/02/19 04/14/19 Calcium Carbonate [Tums] 1,000 mg PO QID PRN 04/02/19 04/14/19 Celecoxib [CeleBREX] 200 mg PO DAILY 04/02/19 04/14/19 Cyanocobalamin [Vitamin B-12] 500 mcg PO MOTUWETHFR 04/02/19 04/14/19 DULoxetine HCL [Cymbalta] 60 mg PO DAILY 04/02/19 04/14/19 Furosemide [Lasix] 20 mg PO DAILY 04/02/19 04/14/19 Gabapentin 800 mg PO TID 04/02/19 04/14/19 Insulin Glargine [Lantus] 35 unit SQ DAILY 04/02/19 04/14/19 Losartan [Cozaar] 50 mg PO DAILY 04/02/19 04/14/19 Multivitamins, Thera [Multivitamin 1 tab PO DAILY 04/02/19 04/14/19 (formulary)] Tamsulosin HCl [Flomax] 0.4 mg PO DAILY 04/02/19 04/14/19 hydrALAZINE HCL 50 mg PO TID 04/02/19 04/14/19 levETIRAcetam [Keppra] 500 mg PO Q12HR 04/02/19 04/14/19 metFORMIN HCL 1,000 mg PO BID 04/02/19 04/14/19 Allergies Allergy/AdvReac Type Severity Reaction Status Date / Time lisinopril Allergy Unknown Verified 07/17/20 11:09 pioglitazone [From Actos] Allergy Unknown Verified 07/17/20 11:09 Review of Systems ROS Other: All systems not noted in ROS Statement are negative. <Mihai Deleon - Last Filed: 07/17/20 12:53> ROS Other: All systems not noted in ROS Statement are negative. <Deshaun Hancock - Last Filed: 07/17/20 13:40> ROS Statement: Those systems with pertinent positive or pertinent negative responses have been documented in the HPI. Past Medical History Past Medical History: Cancer, Diabetes Mellitus, Hyperlipidemia, Hypertension, Neurologic Disorder, Seizure Disorder, Sleep Apnea/CPAP/BIPAP Additional Past Medical History / Comment(s): Astrocytoma status post right temporal craniotomy. History of Any Multi-Drug Resistant Organisms: MRSA Date of last positivie culture/infection: 12/09/19 MDRO Source:: MRSA FOOT Past Surgical History: Bariatric Surgery Additional Past Surgical History / Comment(s): brain tumor grade 3 removed April, 2007, 2016, 2018. Lap band-removed 2013 Past Anesthesia/Blood Transfusion Reactions: No Reported Reaction, Unable to Obtain Past Psychological History: Anxiety, Depression Smoking Status: Current every day smoker Past Alcohol Use History: Occasional Past Drug Use History: None Reported - Past Family History Brother(s) Family Medical History: No Reported History Sister(s) Family Medical History: No Reported History Son(s) Family Medical History: No Reported History Mother History Unknown: Yes Family Medical History: No Reported History Father Family Medical History: Congestive Heart Failure (CHF), Diabetes Mellitus <Deshaun Hancock - Last Filed: 07/17/20 13:40> General Exam Limitations: no limitations General appearance: alert, anxious, in distress Head exam: Present: atraumatic, normocephalic, normal inspection Eye exam: Present: normal appearance, PERRL, EOMI. Absent: scleral icterus, conjunctival injection, periorbital swelling ENT exam: Present: mucous membranes dry Neck exam: Present: normal inspection. Absent: tenderness, meningismus, lymphadenopathy Respiratory exam: Present: normal lung sounds bilaterally. Absent: respiratory distress, wheezes, rales, rhonchi, stridor Cardiovascular Exam: Present: regular rate, normal rhythm, normal heart sounds. Absent: systolic murmur, diastolic murmur, rubs, gallop, clicks GI/Abdominal exam: Present: soft, normal bowel sounds. Absent: distended, tenderness, guarding, rebound, rigid Extremities exam: Present: normal inspection, normal capillary refill. Absent: full ROM (Left upper extremity hemiplegia left lower extremity hemiparesis with limited movement evidence of an open tibia fracture distal anterior leg. This liter appears be no sensori or vascular deficits however), tenderness, pedal edema, joint swelling, calf tenderness Back exam: Present: normal inspection Neurological exam: Present: alert, oriented X3, CN II-XII intact, motor sensory deficit Psychiatric exam: Present: normal affect, normal mood Skin exam: Present: warm, dry, intact, normal color. Absent: rash <Deshaun Hancock - Last Filed: 07/17/20 13:40> - General Exam Comments Initial Comments: This a well-developed obese male who is awake alert oriented 3 with a Shaila Coma Scale of 15 (Deshaun Hancock) Course <Deshaun Hancock - Last Filed: 07/17/20 13:40> Vital Signs 07/17/20 07/17/20 07/17/20 11:04 11:51 12:09 Temperature 97.8 F Pulse Rate 86 86 Respiratory 18 18 20 Rate Blood Pressure 83/50 117/74 Blood Pressure 94/56 [Right Arm] O2 Sat by Pulse 95 98 96 Oximetry 07/17/20 07/17/20 07/17/20 12:20 12:25 12:30 Temperature Pulse Rate 86 89 97 Respiratory 18 18 20 Rate Blood Pressure 138/86 138/83 138/75 Blood Pressure [Right Arm] O2 Sat by Pulse 93 L 100 100 Oximetry 07/17/20 07/17/20 07/17/20 12:35 12:40 12:45 Temperature Pulse Rate 92 93 89 Respiratory 18 18 18 Rate Blood Pressure 121/75 123/68 115/67 Blood Pressure [Right Arm] O2 Sat by Pulse 100 100 100 Oximetry 07/17/20 07/17/20 07/17/20 12:50 12:55 13:00 Temperature Pulse Rate 86 87 90 Respiratory 20 18 18 Rate Blood Pressure 124/72 120/70 94/54 Blood Pressure [Right Arm] O2 Sat by Pulse 100 100 98 Oximetry 07/17/20 07/17/20 13:30 13:31 Temperature Pulse Rate 92 98 Respiratory 18 18 Rate Blood Pressure 137/83 126/76 Blood Pressure [Right Arm] O2 Sat by Pulse 98 98 Oximetry - Reevaluation(s) Reevaluation #1: 07/17/20 13:35 Reevaluation patient reveals he is awake alert oriented 3 male Shaila Coma Scale of 15. (Deshaun Hancock) Procedures - Procedural Sedation Procedural Sedation Start Time: 12:25 Procedural Sedation Stop Time: 12:53 Indications: fracture/dislocation reduction ASA Class: IV Mallampati Airway Score: 3 Preparation: cardiac cath tech applied, pulse oximeter, capnometry used, supplemental O2 applied IV Propofol Dose (mgs): 120 Complications: none Patient Tolerated Procedure: well, no complications <Mihai Deleon - Last Filed: 07/17/20 12:53> - Orthopedic Fracture Reduction Fracture #1 Consent Obtained: verbal consent, emergent situation Side: left Fracture Reduction Location: tibia, fibula Analgesia: procedural sedation Technique: traction/counter-traction Post Reduction X-rays Demonstrate: acceptable reduction Post-Reduction Neuro Exam: intact Post-Reduction Vascular Exam: intact Splint Applied: Yes (5 x 30 posterior OCL on with a modified stirrup with the anterior aspect op) Patient Tolerated Procedure: well <Deshaun Hancock - Last Filed: 07/17/20 13:40> Medical Decision Making - Lab Data Result diagrams: 07/17/20 11:32 07/17/20 11:32 <Mihai Deleon - Last Filed: 07/17/20 12:53> - Lab Data Result diagrams: 07/17/20 11:32 07/17/20 11:32 - EKG Data -: EKG Interpreted by Me - Radiology Data Radiology results: report reviewed (Imaging reviewed evidence of a spiral tib- fib fracture left side distal aspect. The hip showed no definite fracture though one cannot totally be ruled out), image reviewed <Deshaun Hancock - Last Filed: 07/17/20 13:40> - Medical Decision Making The patient did sustain a distal left tib-fib open comminuted fracture. The patient was asleep to be admitted to this facility however the hardware used for repair of the fracture not available at this time patient will however be transferred to [facility] I did discuss the case with her or throat, Dr. Chisholm and the emergency physician Dr. Gonzalez. Patient will be transferred by EMS. (SantiDeshaun) - Lab Data Lab Results 07/17/20 07/17/20 Range/Units 11:32 11:32 WBC 5.7 (3.8-10.6) k/uL RBC 3.87 L (4.30-5.90) m/uL Hgb 13.3 (13.0-17.5) gm/dL Hct 41.5 (39.0-53.0) % MCV 107.3 H (80.0-100.0) fL MCH 34.4 (25.0-35.0) pg MCHC 32.1 (31.0-37.0) g/dL RDW 12.9 (11.5-15.5) % Plt Count 169 (150-450) k/uL Neutrophils % 78 % Lymphocytes % 11 % Monocytes % 7 % Eosinophils % 2 % Basophils % 0 % Neutrophils # 4.4 (1.3-7.7) k/uL Lymphocytes # 0.6 L (1.0-4.8) k/uL Monocytes # 0.4 (0-1.0) k/uL Eosinophils # 0.1 (0-0.7) k/uL Basophils # 0.0 (0-0.2) k/uL Macrocytosis Moderate Sodium 138 (137-145) mmol/L Potassium 4.4 (3.5-5.1) mmol/L Chloride 106 (98-107) mmol/L Carbon Dioxide 27 (22-30) mmol/L Anion Gap 5 mmol/L BUN 35 H (9-20) mg/dL Creatinine 0.97 (0.66-1.25) mg/dL Est GFR (CKD-EPI)AfAm >90 (>60 ml/min/1.73 sqM) Est GFR (CKD-EPI)NonAf >90 (>60 ml/min/1.73 sqM) Glucose 122 H (74-99) mg/dL Calcium 9.1 (8.4-10.2) mg/dL Magnesium 1.8 (1.6-2.3) mg/dL Total Bilirubin 0.6 (0.2-1.3) mg/dL AST 35 (17-59) U/L ALT 46 (4-49) U/L Alkaline Phosphatase 183 H (38-126) U/L Creatine Kinase 68 (55-170) U/L Total Protein 5.9 L (6.3-8.2) g/dL Albumin 3.4 L (3.5-5.0) g/dL - EKG Data EKG Comments: Normal sinus rhythm 87 SD interval 174 QRS 104 QT since QTC 386/[address]- T wave changes (Deshaun Hancock) Critical Care Time Critical Care Time: Yes Total Critical Care Time: 39 <Deshaun Hancock - Last Filed: 07/17/20 13:40> Critical Care Time: 39 minutes of critical care time which includes initial presentation with history physical labs x-rays also reevaluation the patient response to IV fluids due to hypotensive episode. This does not include the fracture reduction and OCL placement. Also review of old charting discussion with multiple physicians. Documentation the above. Discussion with EMS crews about the patient as well as transported the patient to the receiving facility. (Deshaun Hancock) Disposition <Mihai Deleon - Last Filed: 07/17/20 12:53> - Out of Hospital Transfer - Req. Specs Out of Hospital Transfer - Requested Specifics: Other Emergency Center <Deshaun Hancock - Last Filed: 07/17/20 13:40> Clinical Impression: Open fracture of left tibia and fibula, Hypotensive episode, Fall Disposition: OTHER INSTITUTION NOT DEFINED Condition: Stable Instructions (If sedation given, give patient instructions): Moderate Sedation (ED) Referrals: Kathryn Vo MD [Primary Care Provider] - 1-2 days
--- NOTE | 2020-07-17 12:22 | XR ---
EXAMINATION TYPE: XR pelvis AP view DATE OF EXAM: 07/17/2020 CLINICAL HISTORY: Pain and bilateral hips after fall. TECHNIQUE: 3 AP views of the pelvis obtained. COMPARISON: None. FINDINGS: Examination is suboptimal due to patient body habitus and penetration. The left hip is asy mmetrically internally rotated on all 3 images, with asymmetric appearance of the left femoral head a nd neck. No evidence of dislocation. Pubic symphysis is not widened. Visualized sacroiliac joints are symmetric. Degenerative changes of the spine. Vascular stent over the right hemipelvis. IMPRESSION: 1. Suboptimal exam due to patient body habitus and penetration. 2. Left hip is internally rotated on all images, with asymmetric appearance of the left femoral head and neck. Findings may be positional or represent impaction fracture. If there is persistent clinical suspicion, recommend left hip CT.
[2020-07-17] MEDS: PROPOFOL 10 MG/ML 20 ML VIAL IV ONE ×2 (12:32→12:38)
[2020-07-17 12:57] VITALS: RESP 18
[2020-07-17] MEDS ORDERED: HYDROmorphone 1 MG/ML 1 ML SYRINGE IVP STA ×2 (13:29→14:09)
--- NOTE | 2020-07-17 13:39 | XR ---
EXAMINATION TYPE: XR tibia fibula LT DATE OF EXAM: 07/17/2020 CLINICAL HISTORY: Post reduction TECHNIQUE: Two views of the left tibia and fibula are obtained. COMPARISON: Left tibia fibula 07/17/2020 at 11:35 AM FINDINGS: Interval reduction of previously described distal tibial and fibular extra-articular fract ures. There is persistent moderate displacement of the tibia and fibular fractures, decreased versus 11:35 AM comparison. There is essentially resolution of the shortening of both the tibial and fibular fractures. IMPRESSION: Improved alignment of distal tibial and fibular extra articular fracture status post redu ction, with persistent moderate displacement.
[2020-07-17 14:08] VITALS: BP 113/87; PULSE 90
== END 2020-07-17 14:23 | disposition other institution (70) ==
LOC: EC 11:03
DX: S82.392B Other fracture of lower end of left tibia, initial encounter for open fracture type I or II (principal); S82.832B Other fracture of upper and lower end of left fibula, initial encounter for open fracture type I or II; C71.9 Malignant neoplasm of brain, unspecified; I10 Essential (primary) hypertension; E11.9 Type 2 diabetes mellitus without complications; G47.30 Sleep apnea, unspecified; E78.5 Hyperlipidemia, unspecified; F41.9 Anxiety disorder, unspecified; F32.9 Major depressive disorder, single episode, unspecified; G40.909 Epilepsy, unspecified, not intractable, without status epilepticus; G81.94 Hemiplegia, unspecified affecting left nondominant side; F17.200 Nicotine dependence, unspecified, uncomplicated; Z79.899 Other long term (current) drug therapy; Z79.4 Long term (current) use of insulin; Z79.1 Long term (current) use of non-steroidal anti-inflammatories (NSAID); Z79.84 Long term (current) use of oral hypoglycemic drugs; Z88.8 Allergy status to other drugs, medicaments and biological substances; Z23 Encounter for immunization; Z99.89 Dependence on other enabling machines and devices; W19.XXXA Unspecified fall, initial encounter
CPT/HCPCS: 36415; 93005; 80053; 82550; 83735; 85025; 87040; 72170; 73590; 90715; 99285; 99152; 99153; 27752; 96374; 96375 ×3; 96376; 90471; J0690; J3010; J1170; J2704

== ENCOUNTER 2020-11-10 14:05 | Emergency (ER) | payer MEDICARE ==
[2020-11-10] MEDS ORDERED: SODIUM CHLORIDE 0.9% 500 ML 500 ML IV STA (14:33)
--- NOTE | 2020-11-10 15:15 | ED ---
General Adult HPI - General Chief complaint: Neuro Symptoms/Deficit Stated complaint: weakness Time Seen by Provider: 11/10/20 14:21 Source: patient, RN notes reviewed, old records reviewed Mode of arrival: ambulatory Limitations: no limitations - History of Present Illness Initial comments: 50-year-old male history of previous CVA presenting for evaluation of weakness, generalized weakness. He has a residual left-sided weakness after brain surgery in the remote past. He states that he's noticed some right-sided weakness over the past several days and his had multiple falls according to EMS. He denies chest pain or dyspnea. Denies cough. Denies abdominal pain nausea vomiting. Denies dysuria. Denies diarrhea. He states he has been eating and drinking well. - Related Data Home Medications Medication Instructions Recorded Confirmed Calcium Carbonate [Tums] 1,000 mg PO Q6H PRN 04/02/19 11/10/20 Celecoxib [CeleBREX] 200 mg PO DAILY 04/02/19 11/10/20 DULoxetine HCL [Cymbalta] 60 mg PO BID 04/02/19 11/10/20 Gabapentin 800 mg PO QID 04/02/19 11/10/20 hydrALAZINE HCL 50 mg PO TID 04/02/19 11/10/20 Aloe [place] Foam 1 applic TOPICAL DIRECTED 11/10/20 11/10/20 Diclofenac Sodium [Voltaren Gel] 1 gram TOPICAL TID 11/10/20 11/10/20 Fluticasone Nasal [place] [Flonase 1 spr EA NOSTRIL DAILY 11/10/20 11/10/20 Nasal [place]] Furosemide [Lasix] 40 mg PO DAILY 11/10/20 11/10/20 INSULIN ASPART (NovoLOG) [NovoLOG 10 unit SQ AC-SUPPER 11/10/20 11/10/20 (formulary)] INSULIN ASPART (NovoLOG) [NovoLOG 17 unit SQ AC-BID@0800,1200 11/10/20 11/10/20 (formulary)] Insulin Glargine,Hum.rec.anlog 30 unit SQ DAILY 11/10/20 11/10/20 [Lantus Solostar] Lomustine [Gleostine] 40 mg PO DIRECTED 11/10/20 11/10/20 Ozempic 0.5mg/0.375ml 0.5 mg SQ MO 11/10/20 11/10/20 Valsartan 320 mg PO DAILY 11/10/20 11/10/20 levETIRAcetam [Keppra] 750 mg PO Q12HR 11/10/20 11/10/20 oxyCODONE-APAP 7.5-325MG [Percocet 1 tab PO QID 11/10/20 11/10/20 7.5-325 mg] Allergies Allergy/AdvReac Type Severity Reaction Status Date / Time lisinopril Allergy Unknown Verified 11/10/20 15:38 pioglitazone [From Actos] Allergy Unknown Verified 11/10/20 15:38 Review of Systems ROS Statement: Those systems with pertinent positive or pertinent negative responses have been documented in the HPI. ROS Other: All systems not noted in ROS Statement are negative. Past Medical History Past Medical History: Cancer, Diabetes Mellitus, Hyperlipidemia, Hypertension, Neurologic Disorder, Seizure Disorder, Sleep Apnea/CPAP/BIPAP Additional Past Medical History / Comment(s): Astrocytoma status post right temporal craniotomy. History of Any Multi-Drug Resistant Organisms: MRSA Date of last positivie culture/infection: 12/09/19 MDRO Source:: MRSA FOOT Past Surgical History: Bariatric Surgery Additional Past Surgical History / Comment(s): brain tumor grade 3 removed April, 2007, 2015, 2018. Lap band-removed 2013 Past Anesthesia/Blood Transfusion Reactions: No Reported Reaction, Unable to Obtain Past Psychological History: Anxiety, Depression Smoking Status: Current every day smoker Past Alcohol Use History: Occasional Past Drug Use History: None Reported - Past Family History Brother(s) Family Medical History: No Reported History Sister(s) Family Medical History: No Reported History Son(s) Family Medical History: No Reported History Mother History Unknown: Yes Family Medical History: No Reported History Father Family Medical History: Congestive Heart Failure (CHF), Diabetes Mellitus General Exam Limitations: no limitations General appearance: alert, in no apparent distress Head exam: Present: atraumatic, normocephalic Eye exam: Present: normal appearance, PERRL ENT exam: Present: normal exam Neck exam: Present: normal inspection. Absent: tenderness, meningismus Course Vital Signs 11/10/20 14:20 Temperature 98.7 F Pulse Rate 90 Respiratory 20 Rate Blood Pressure 106/77 O2 Sat by Pulse 97 Oximetry EKG Findings - EKG Comments: EKG Findings:: EKG: Sinus tachycardia, PVC, rate of 105, [place] interval 186, QRS duration 92, QTC 454, no ST segment elevation. Medical Decision Making - Medical Decision Making 50-year-old male with increased weakness. History of brain cancer, astrocytoma following with both oncology and radiation oncology. Currently awaiting radiation. He is not currently on chemotherapy. He's had increased generalized weakness which does show up for this patient on the right although he has residual left-sided weakness secondary to his brain cancer. Head CT performed which shows stable encephalomalacia no acute findings, no intracranial hemorrhage, chest x-ray negative for focal pneumonia, showing some pulmonary vascular congestion. He has a normal leukocytosis, stable hemoglobin. He has a magnesium 1.4 which is replaced. Troponin is negative. EKG sinus rhythm. Urinalysis negative for infection. Patient does not want to be admitted to the hospital. He states he has good care at home and is able to transfer from bed to his primary care. Will follow with his primary care physician and his oncologist. He will return with worsening or changing symptoms. - Lab Data Result diagrams: 11/10/20 15:35 11/10/20 15:35 Lab Results 11/10/20 11/10/20 11/10/20 Range/Units 15:35 15:35 15:35 WBC 7.8 (3.8-10.6) k/uL RBC 4.11 L (4.30-5.90) m/uL Hgb 13.9 (13.0-17.5) gm/dL Hct 42.5 (39.0-53.0) % MCV 103.4 H (80.0-100.0) fL MCH 33.9 (25.0-35.0) pg MCHC 32.8 (31.0-37.0) g/dL RDW 13.0 (11.5-15.5) % Plt Count 140 L (150-450) k/uL MPV 7.6 Neutrophils % 75 % Lymphocytes % 10 % Monocytes % 11 % Eosinophils % 1 % Basophils % 0 % Neutrophils # 5.9 (1.3-7.7) k/uL Lymphocytes # 0.8 L (1.0-4.8) k/uL Monocytes # 0.9 (0-1.0) k/uL Eosinophils # 0.1 (0-0.7) k/uL Basophils # 0.0 (0-0.2) k/uL Macrocytosis Slight PT 10.2 (9.0-12.0) sec INR 0.9 (<1.2) APTT 23.7 (22.0-30.0) sec Sodium 140 (137-145) mmol/L Potassium 4.1 (3.5-5.1) mmol/L Chloride 100 (98-107) mmol/L Carbon Dioxide 32 H (22-30) mmol/L Anion Gap 8 mmol/L BUN 27 H (9-20) mg/dL Creatinine 0.87 (0.66-1.25) mg/dL Est GFR (CKD-EPI)AfAm >90 (>60 ml/min/1.73 sqM) Est GFR (CKD-EPI)NonAf >90 (>60 ml/min/1.73 sqM) Glucose 184 H (74-99) mg/dL Calcium 9.5 (8.4-10.2) mg/dL Magnesium 1.4 L (1.6-2.3) mg/dL Total Bilirubin 0.7 (0.2-1.3) mg/dL AST 30 (17-59) U/L ALT 35 (4-49) U/L Alkaline Phosphatase 202 H (38-126) U/L Troponin I (0.000-0.034) ng/mL Total Protein 6.6 (6.3-8.2) g/dL Albumin 3.6 (3.5-5.0) g/dL Urine Color Urine Appearance (Clear) Urine pH (5.0-8.0) Ur Specific [place] (1.001-1.035) Urine Protein (Negative) Urine Glucose (UA) (Negative) Urine Ketones (Negative) Urine Blood (Negative) Urine Nitrite (Negative) Urine Bilirubin (Negative) Urine Urobilinogen (<2.0) mg/dL Ur Leukocyte Esterase (Negative) 11/10/20 11/10/20 Range/Units 15:35 16:55 WBC (3.8-10.6) k/uL RBC (4.30-5.90) m/uL Hgb (13.0-17.5) gm/dL Hct (39.0-53.0) % MCV (80.0-100.0) fL MCH (25.0-35.0) pg MCHC (31.0-37.0) g/dL RDW (11.5-15.5) % Plt Count (150-450) k/uL MPV Neutrophils % % Lymphocytes % % Monocytes % % Eosinophils % % Basophils % % Neutrophils # (1.3-7.7) k/uL Lymphocytes # (1.0-4.8) k/uL Monocytes # (0-1.0) k/uL Eosinophils # (0-0.7) k/uL Basophils # (0-0.2) k/uL Macrocytosis PT (9.0-12.0) sec INR (<1.2) APTT (22.0-30.0) sec Sodium (137-145) mmol/L Potassium (3.5-5.1) mmol/L Chloride (98-107) mmol/L Carbon Dioxide (22-30) mmol/L Anion Gap mmol/L BUN (9-20) mg/dL Creatinine (0.66-1.25) mg/dL Est GFR (CKD-EPI)AfAm (>60 ml/min/1.73 sqM) Est GFR (CKD-EPI)NonAf (>60 ml/min/1.73 sqM) Glucose (74-99) mg/dL Calcium (8.4-10.2) mg/dL Magnesium (1.6-2.3) mg/dL Total Bilirubin (0.2-1.3) mg/dL AST (17-59) U/L ALT (4-49) U/L Alkaline Phosphatase (38-126) U/L Troponin I <0.012 (0.000-0.034) ng/mL Total Protein (6.3-8.2) g/dL Albumin (3.5-5.0) g/dL Urine Color Yellow Urine Appearance Clear (Clear) Urine pH 5.5 (5.0-8.0) Ur Specific [place] 1.017 (1.001-1.035) Urine Protein Negative (Negative) Urine Glucose (UA) Negative (Negative) Urine Ketones Negative (Negative) Urine Blood Negative (Negative) Urine Nitrite Negative (Negative) Urine Bilirubin Negative (Negative) Urine Urobilinogen <2.0 (<2.0) mg/dL Ur Leukocyte Esterase Negative (Negative) Disposition Clinical Impression: Weakness, Hypomagnesemia, Brain cancer Disposition: HOME SELF-CARE Condition: Fair Instructions (If sedation given, give patient instructions): Weakness (ED), Hypomagnesemia (ED) Is patient prescribed a controlled substance at d/c from ED?: No Referrals: Kathryn Vo MD [Primary Care Provider] - 1-2 days Time of Disposition: 17:25
--- NOTE | 2020-11-10 15:33 | CT ---
EXAMINATION TYPE: CT brain wo con DATE OF EXAM: 11/10/2020 COMPARISON: CT brain April 14, 2019 HISTORY: Right sided weakness CT DLP: 1217.4 mGycm. Automated Exposure Control for Dose Reduction was Utilized. TECHNIQUE: CT scan of the head is performed without contrast. FINDINGS: There is right frontal parietal craniotomy defect with adjacent area of encephalomalacia re demonstrated. Persistent ex vacuo dilatation of right lateral ventricle. Stable midline shift due to right-sided volume loss. No acute renal hemorrhage. Right temporal encephalomalacia redemonstrated. P ersistent mild generalized cortical atrophy. Paranasal sinuses remain clear. Globes are intact bilate rally. IMPRESSION: No acute intracranial hemorrhage. No significant change from prior CT.
--- NOTE | 2020-11-10 15:35 | XR ---
EXAMINATION TYPE: XR chest 1V portable DATE OF EXAM: 11/10/2020 COMPARISON: 09/07/2015 HISTORY: Chest pain TECHNIQUE: Single frontal view of the chest is obtained. FINDINGS: There is evidence of cardiomegaly with pulmonary venous congestion. No overt failure seen or focal co nsolidation at this time. IMPRESSION: 1. Cardiomegaly with pulmonary venous congestion.
[2020-11-10 15:47] LABS: Basophils % (A) 0 %; Eosinophils # (A) 0.1 k/uL (0-0.7); Eosinophils % (A) 1 %; HCT 42.5 % (39.0-53.0); HGB 13.9 gm/dL (13.0-17.5); Lymphocytes # (A) 0.8 k/uL (1.0-4.8); Lymphocytes % (A) 10 %; MCH 33.9 pg (25.0-35.0); MCHC 32.8 g/dL (31.0-37.0); MCV 103.4 fL (80.0-100.0); Macrocytosis Slight; Mean Platelet Volume 7.6; Monocytes # (A) 0.9 k/uL (0-1.0); Monocytes % (A) 11 %; Neutrophils # (A) 5.9 k/uL (1.3-7.7); Neutrophils % (A) 75 %; Platelet Count 140 k/uL (150-450); RBC 4.11 m/uL (4.30-5.90); WBC 7.8 k/uL (3.8-10.6)
[2020-11-10 16:06] LABS: INR 0.9 (<1.2); Partial Thromboplastin Time 23.7 sec (22.0-30.0); Prothrombin Time 10.2 sec (9.0-12.0)
[2020-11-10 16:15] LABS: ALT 35 U/L (4-49); AST 30 U/L (17-59); African American GFR (CKD) >90 (>60 ml/min/1.73 sqM); Albumin 3.6 g/dL (3.5-5.0); Alkaline Phosphatase 202 U/L (38-126); Anion Gap 8 mmol/L; Blood Urea Nitrogen 27 mg/dL (9-20); Calcium 9.5 mg/dL (8.4-10.2); Carbon Dioxide 32 mmol/L (22-30); Chloride 100 mmol/L (98-107); Glucose 184 mg/dL (74-99); Magnesium 1.4 mg/dL (1.6-2.3); Non-African American GFR(CKD) >90 (>60 ml/min/1.73 sqM); Potassium 4.1 mmol/L (3.5-5.1); Sodium 140 mmol/L (137-145); Total Bilirubin 0.7 mg/dL (0.2-1.3); Total Protein 6.6 g/dL (6.3-8.2)
[2020-11-10 17:00] LABS: Appearance,Urine Clear (Clear); Bilirubin,Urine Negative (Negative); Blood,Urine Negative (Negative); Color,Urine Yellow; Glucose,Urine (UA) Negative (Negative); Ketones,Urine Negative (Negative); Leukocyte Esterase,Urine Negative (Negative); Nitrite,Urine Negative (Negative); PH, Urine 5.5 (5.0-8.0); Protein,Urine Negative (Negative); Specific Gravity,Urine 1.017 (1.001-1.035); Urobilinogen,Urine <2.0 mg/dL (<2.0)
[2020-11-10] MEDS ORDERED: MAGNESIUM SULFATE-D5W PMX 1 GM in DEXTROSE/WATER 1 100ML.BAG IVPB ONE (17:13)
[2020-11-10 19:54] VITALS: BP 116/70; PULSE 89; RESP 18; TEMP 97.8
== END 2020-11-10 19:45 | disposition home or self-care (01) ==
LOC: EC 14:05
DX: C71.9 Malignant neoplasm of brain, unspecified (principal); E83.42 Hypomagnesemia; F41.9 Anxiety disorder, unspecified; F32.9 Major depressive disorder, single episode, unspecified; F17.200 Nicotine dependence, unspecified, uncomplicated; E11.9 Type 2 diabetes mellitus without complications; E78.5 Hyperlipidemia, unspecified; I10 Essential (primary) hypertension; G40.909 Epilepsy, unspecified, not intractable, without status epilepticus; G47.33 Obstructive sleep apnea (adult) (pediatric); Z79.4 Long term (current) use of insulin; Z79.899 Other long term (current) drug therapy; Z91.81 History of falling; Z99.89 Dependence on other enabling machines and devices; Z88.8 Allergy status to other drugs, medicaments and biological substances; Z86.14 Personal history of Methicillin resistant Staphylococcus aureus infection
CPT/HCPCS: 36415; 93005; 80053; 83735; 84484; 85025; 85610; 85730; 81003; 71045; 70450; 99285; 96365; 96361; J3475

== ENCOUNTER 2020-11-28 17:02 | Observation (INO) | payer MEDICARE ==
[2020-11-28] MEDS ORDERED: SODIUM CHLORIDE 0.9% 500 ML 500 ML IV STA (17:04)
[2020-11-28 17:34] LABS: Basophils # (A) 0.1 k/uL (0-0.2); Basophils % (A) 1 %; Eosinophils # (A) 0.1 k/uL (0-0.7); Eosinophils % (A) 3 %; Lymphocytes % (A) 18 %; MCHC 30.5 g/dL (31.0-37.0); MCV 101.9 fL (80.0-100.0); Macrocytosis Slight; Mean Platelet Volume 7.4; Monocytes # (A) 0.3 k/uL (0-1.0); Monocytes % (A) 6 %; Neutrophils # (A) 3.9 k/uL (1.3-7.7); Neutrophils % (A) 71 %; Platelet Count 189 k/uL (150-450); RBC 3.54 m/uL (4.30-5.90); RDW 12.9 % (11.5-15.5); WBC 5.5 k/uL (3.8-10.6)
[2020-11-28 17:42] LABS: ALT 50 U/L (4-49); AST 51 U/L (17-59); African American GFR (CKD) >90 (>60 ml/min/1.73 sqM); Albumin 3.3 g/dL (3.5-5.0); Alkaline Phosphatase 355 U/L (38-126); Anion Gap 10 mmol/L; Blood Urea Nitrogen 25 mg/dL (9-20); Calcium 9.5 mg/dL (8.4-10.2); Carbon Dioxide 23 mmol/L (22-30); Chloride 104 mmol/L (98-107); Glucose 174 mg/dL (74-99); Magnesium 1.6 mg/dL (1.6-2.3); Non-African American GFR(CKD) >90 (>60 ml/min/1.73 sqM); Potassium 5.2 mmol/L (3.5-5.1); Sodium 137 mmol/L (137-145); Total Bilirubin 0.5 mg/dL (0.2-1.3); Total Protein 6.5 g/dL (6.3-8.2)
--- NOTE | 2020-11-28 17:52 | ED ---
Weakness HPI - General Chief complaint: Weakness Stated complaint: increased weakness Time Seen by Provider: 11/28/20 17:03 Source: patient, EMS Mode of arrival: EMS Limitations: physical limitation - History of Present Illness Initial comments: Hunter is a 50-year-old male with a history of astrocytoma status post surgery and currently undergoing radiation. Patient has history of left-sided paralysis. Patient presents to the ER today via ambulance for evaluation of worsening generalized weakness. Patient called EMS today for a lift assist because he had attempted to ambulate to the restroom become weak and lowered himself to the ground. He was unable to get back up. EMS are familiar with the patient for frequent calls similar to this however on their arrival the patient was too weak to stand and he decided he would not be safe to leave him in the home brought him to the ER for further management. She denies any recent illness, denies any worsening headaches, denies any fevers chills nausea vomiting or diarrhea. States that previous episodes this that happened when he has had a I abnormalities. - Related Data Home Medications Medication Instructions Recorded Confirmed Calcium Carbonate [Tums] 1,000 mg PO Q6H PRN 04/02/19 11/28/20 Celecoxib [CeleBREX] 200 mg PO DAILY 04/02/19 11/28/20 DULoxetine HCL [Cymbalta] 60 mg PO BID 04/02/19 11/28/20 Gabapentin 800 mg PO QID 04/02/19 11/28/20 hydrALAZINE HCL 50 mg PO TID 04/02/19 11/28/20 Aloe [place] Foam 1 applic TOPICAL DIRECTED 11/10/20 11/28/20 Diclofenac Sodium [Voltaren Gel] 1 gram TOPICAL TID 11/10/20 11/28/20 Fluticasone Nasal [place] [Flonase 1 spr EA NOSTRIL DAILY 11/10/20 11/28/20 Nasal [place]] Furosemide [Lasix] 40 mg PO DAILY 11/10/20 11/28/20 INSULIN ASPART (NovoLOG) [NovoLOG 10 unit SQ AC-SUPPER 11/10/20 11/28/20 (formulary)] INSULIN ASPART (NovoLOG) [NovoLOG 17 unit SQ AC-BID@0800,1200 11/10/20 11/28/20 (formulary)] Insulin Glargine,Hum.rec.anlog 30 unit SQ DAILY 11/10/20 11/28/20 [Lantus Solostar] Lomustine [Gleostine] 40 mg PO DIRECTED 11/10/20 11/28/20 Ozempic 0.5mg/0.375ml 0.5 mg SQ MO 11/10/20 11/28/20 Valsartan 320 mg PO DAILY 11/10/20 11/28/20 levETIRAcetam [Keppra] 750 mg PO Q12HR 11/10/20 11/28/20 oxyCODONE-APAP 7.5-325MG [Percocet 1 tab PO QID 11/10/20 11/28/20 7.5-325 mg] Atorvastatin Calcium [Lipitor] 80 mg PO HS 11/28/20 11/28/20 metFORMIN HCL 1,000 mg PO BID 11/28/20 11/28/20 Allergies Allergy/AdvReac Type Severity Reaction Status Date / Time lisinopril Allergy Unknown Verified 11/28/20 19:11 pioglitazone [From Actos] Allergy Unknown Verified 11/28/20 19:11 Review of Systems ROS Statement: Those systems with pertinent positive or pertinent negative responses have been documented in the HPI. ROS Other: All systems not noted in ROS Statement are negative. Past Medical History Past Medical History: Cancer, Diabetes Mellitus, Hyperlipidemia, Hypertension, Neurologic Disorder, Seizure Disorder, Sleep Apnea/CPAP/BIPAP Additional Past Medical History / Comment(s): Astrocytoma status post right temporal craniotomy. left arm paralysis. History of Any Multi-Drug Resistant Organisms: MRSA Date of last positivie culture/infection: 12/09/19 MDRO Source:: MRSA FOOT Past Surgical History: Bariatric Surgery Additional Past Surgical History / Comment(s): brain tumor grade 3 removed April, 2007, 2016, 2018. Lap band-removed 2013 Past Anesthesia/Blood Transfusion Reactions: No Reported Reaction, Unable to Obtain Past Psychological History: Anxiety, Depression Smoking Status: Current every day smoker Past Alcohol Use History: Occasional Past Drug Use History: None Reported - Past Family History Brother(s) Family Medical History: No Reported History Sister(s) Family Medical History: No Reported History Son(s) Family Medical History: No Reported History Mother History Unknown: Yes Family Medical History: No Reported History Father Family Medical History: Congestive Heart Failure (CHF), Diabetes Mellitus General Exam - General Exam Comments Initial Comments: Physical Exam GENERAL: Chronically ill, obese male HENT: Post surgical changes, no acute trauma EYES: PERRL, EOMI PULMONARY: Unlabored respirations. CARDIOVASCULAR: Tachy, regular ABDOMEN: Soft and nontender with normal bowel sounds. SKIN: Skin is clear with no lesions or rashes and otherwise unremarkable. : Deferred NEUROLOGIC: Patient is alert and oriented x3 Left sided paralysis MUSCULOSKELETAL: No obvious injury PSYCHIATRIC: Normal psychiatric evaluation. Limitations: physical limitation Course Vital Signs 11/28/20 11/28/20 11/28/20 17:03 17:54 19:10 Temperature 98.4 F Pulse Rate 107 H 103 H 101 H Respiratory 18 18 18 Rate Blood Pressure 94/67 109/67 134/84 O2 Sat by Pulse 94 L 95 95 Oximetry 11/28/20 20:30 Temperature 98.4 F Pulse Rate 107 H Respiratory 18 Rate Blood Pressure 132/94 O2 Sat by Pulse 97 Oximetry EKG Findings - EKG Comments: EKG Findings:: KG obtained for evaluation tachycardia EKG obtained at 1757 rate is 104 rhythm is sinus tach no axis, normal intervals no acute ST elevations or depressions no evidence of ischemia or infarction. 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 This plan was discussed with Dr. Glaser who accepts - Lab Data Result diagrams: 11/28/20 17:26 11/28/20 17:26 Lab Results 11/28/20 11/28/20 11/28/20 Range/Units 17:26 17:26 17:26 WBC 5.5 (3.8-10.6) k/uL RBC 3.54 L (4.30-5.90) m/uL Hgb 11.0 L (13.0-17.5) gm/dL Hct 36.0 L (39.0-53.0) % MCV 101.9 H (80.0-100.0) fL MCH 31.0 (25.0-35.0) pg MCHC 30.5 L (31.0-37.0) g/dL RDW 12.9 (11.5-15.5) % Plt Count 189 (150-450) k/uL MPV 7.4 Neutrophils % 71 % Lymphocytes % 18 % Monocytes % 6 % Eosinophils % 3 % Basophils % 1 % Neutrophils # 3.9 (1.3-7.7) k/uL Lymphocytes # 1.0 (1.0-4.8) k/uL Monocytes # 0.3 (0-1.0) k/uL Eosinophils # 0.1 (0-0.7) k/uL Basophils # 0.1 (0-0.2) k/uL Macrocytosis Slight Sodium 137 (137-145) mmol/L Potassium 5.2 H (3.5-5.1) mmol/L Chloride 104 (98-107) mmol/L Carbon Dioxide 23 (22-30) mmol/L Anion Gap 10 mmol/L BUN 25 H (9-20) mg/dL Creatinine 0.95 (0.66-1.25) mg/dL Est GFR (CKD-EPI)AfAm >90 (>60 ml/min/1.73 sqM) Est GFR (CKD-EPI)NonAf >90 (>60 ml/min/1.73 sqM) Glucose 174 H (74-99) mg/dL Lactic Ac Sepsis Rflx Plasma Lactic Acid [place] 5.0 H* (0.7-2.0) mmol/L Calcium 9.5 (8.4-10.2) mg/dL Magnesium 1.6 (1.6-2.3) mg/dL Total Bilirubin 0.5 (0.2-1.3) mg/dL AST 51 (17-59) U/L ALT 50 H (4-49) U/L Alkaline Phosphatase 355 H (38-126) U/L Total Protein 6.5 (6.3-8.2) g/dL Albumin 3.3 L (3.5-5.0) g/dL 11/28/20 Range/Units 17:57 WBC (3.8-10.6) k/uL RBC (4.30-5.90) m/uL Hgb (13.0-17.5) gm/dL Hct (39.0-53.0) % MCV (80.0-100.0) fL MCH (25.0-35.0) pg MCHC (31.0-37.0) g/dL RDW (11.5-15.5) % Plt Count (150-450) k/uL MPV Neutrophils % % Lymphocytes % % Monocytes % % Eosinophils % % Basophils % % Neutrophils # (1.3-7.7) k/uL Lymphocytes # (1.0-4.8) k/uL Monocytes # (0-1.0) k/uL Eosinophils # (0-0.7) k/uL Basophils # (0-0.2) k/uL Macrocytosis Sodium (137-145) mmol/L Potassium (3.5-5.1) mmol/L Chloride (98-107) mmol/L Carbon Dioxide (22-30) mmol/L Anion Gap mmol/L BUN (9-20) mg/dL Creatinine (0.66-1.25) mg/dL Est GFR (CKD-EPI)AfAm (>60 ml/min/1.73 sqM) Est GFR (CKD-EPI)NonAf (>60 ml/min/1.73 sqM) Glucose (74-99) mg/dL Lactic Ac Sepsis Rflx Y Plasma Lactic Acid [place] (0.7-2.0) mmol/L Calcium (8.4-10.2) mg/dL Magnesium (1.6-2.3) mg/dL Total Bilirubin (0.2-1.3) mg/dL AST (17-59) U/L ALT (4-49) U/L Alkaline Phosphatase (38-126) U/L Total Protein (6.3-8.2) g/dL Albumin (3.5-5.0) g/dL Disposition Clinical Impression: Lactic acid acidosis, Dehydration, Debility, Brain cancer Disposition: ADMITTED IP TO THIS HOSP Condition: Serious Is patient prescribed a controlled substance at d/c from ED?: No Referrals: Kathryn Vo MD [Primary Care Provider] - 1-2 days
[2020-11-28] MEDS ORDERED: SODIUM CHLORIDE 0.9% 1,000 ML IV ONE (18:09)
[2020-11-28] MEDS ORDERED: NALOXONE 0.4 MG/ML 1 ML VIAL IV PRN (20:11)
[2020-11-28] MEDS ORDERED: CALCIUM CARBONATE 500 MG CHEWABLE PO PRN (21:00)
[2020-11-28] MEDS ORDERED: [UNRECOGNIZED DRUG - OTHER] PO SCH (21:00)
[2020-11-28 21:08] LABS: Appearance,Urine Clear (Clear); Bilirubin,Urine Negative (Negative); Blood,Urine Negative (Negative); Color,Urine Yellow; Glucose,Urine (UA) 3+ (Negative); Ketones,Urine Negative (Negative); Leukocyte Esterase,Urine Negative (Negative); Nitrite,Urine Negative (Negative); Protein,Urine Trace (Negative); Specific Gravity,Urine 1.025 (1.001-1.035)
[2020-11-28] MEDS: SODIUM CHLORIDE 0.9% 1,000 ML IV SCH (21:09)
[2020-11-28] MEDS ORDERED: DICLOFENAC SODIUM GEL 100 GM TUBE TOPICAL PRN (22:00)
[2020-11-28] MEDS: metFORMIN 500 MG TAB PO SCH (22:19)
[2020-11-28] MEDS: GABAPENTIN 400 MG CAP PO SCH (22:19)
[2020-11-28] MEDS: DULoxetine HCL 60 MG CAPSULE.DR PO SCH (22:19)
[2020-11-28] MEDS: ATORVASTATIN 80 MG TAB PO SCH (22:19)
[2020-11-28] MEDS: oxyCODONE-APAP 7.5-325MG 1 EACH TAB PO SCH (22:20)
[2020-11-28] MEDS: hydrALAZINE HCL 50 MG TAB PO SCH (22:20)
[2020-11-29] MEDS: SODIUM CHLORIDE 0.9% 1,000 ML IV SCH ×2 (05:46→11:49)
[2020-11-29 06:49] LABS: Glucose,Whole Blood 136 mg/dL (75-99)
[2020-11-29] MEDS: oxyCODONE-APAP 7.5-325MG 1 EACH TAB PO SCH ×4 (07:25→21:30)
[2020-11-29] MEDS: metFORMIN 500 MG TAB PO SCH ×2 (07:25→21:29)
[2020-11-29] MEDS: DULoxetine HCL 60 MG CAPSULE.DR PO SCH ×2 (07:25→21:29)
[2020-11-29] MEDS: GABAPENTIN 400 MG CAP PO SCH ×4 (07:25→21:29)
[2020-11-29] MEDS: INSULIN DETEMIR (LEVEMIR) 100 UNIT/ML SYR SQ SCH (07:25)
[2020-11-29] MEDS: INSULIN ASPART (NovoLOG) 100 UNIT/ML VIAL SQ SCH ×6 (07:26→21:04)
[2020-11-29] MEDS: hydrALAZINE HCL 50 MG TAB PO SCH ×3 (07:26→21:30)
[2020-11-29] MEDS: FLUTICASONE 50MCG/SPRAY NASAL 16GM EA NOSTRIL SCH (07:26)
[2020-11-29] MEDS: FUROSEMIDE 40 MG TAB PO SCH (07:26)
[2020-11-29] MEDS: VALSARTAN 160 MG TAB PO SCH (07:26)
--- NOTE | 2020-11-29 10:18 | XR ---
EXAMINATION TYPE: XR chest 1V portable DATE OF EXAM: 11/29/2020 COMPARISON: Chest x-ray from 11/10/2020 HISTORY: Shortness of breath TECHNIQUE: Single frontal view of the chest is obtained. FINDINGS: There are overlying leads, generators present over the right neck. Patient is rotated. Hea rt remains enlarged. No evident pneumothorax or pleural effusion. Pulmonary vascularity and darryl thou ght to be within normal limits. IMPRESSION: Findings are stable compared to prior exam. Cardiomegaly, follow-up PA and lateral chest x-ray may be of benefit as indicated.
--- NOTE | 2020-11-29 11:06 | CT ---
EXAMINATION TYPE: CT brain wo con DATE OF EXAM: 11/29/2020 COMPARISON: 11/10/2020 HISTORY: Right side weakness CT DLP: 1099.4 mGycm. Automated Exposure Control for Dose Reduction was Utilized. TECHNIQUE: CT scan of the head is performed without contrast. FINDINGS: There is right frontal parietal craniotomy defect with adjacent area of encephalomalacia redemonstrated. Persistent ex vacuo dilatation of right lateral ventricle. Stable midline shift due t o right-sided volume loss. No acute renal hemorrhage. Right temporal encephalomalacia redemonstrated. Persistent mild generalized cortical atrophy. Paranasal sinuses remain clear. Globes are intact bila terally. Subtle hyperdensities in right temporal lobe noted. Abnormal density seen in the ping and basal ganglia bilaterally suggestive of remote infarct. IMPRESSION: 1. Postsurgical changes with findings of encephalomalacia involving the right temporal lobe. Subtle a reas of increased attenuation in the right temporal lobe are stable from the prior exam and are too s mall to characterize. Although tiny petechial hemorrhage not excluded. Findings are stable from previ ous exam and May BE related to chronic postoperative changes. Recommend follow-up MRI. 2. Correlate for pontine infarct. 3. Remote lacunar infarct involving bilateral basal ganglia
[2020-11-29] MEDS: NICOTINE 14MG/24HR PATCH TRANSDERM SCH (11:49)
--- NOTE | 2020-11-29 12:03 | P.HPIM ---
History of Present Illness H&P Date: 11/29/20 Chief Complaint: weakness HISTORY OF PRESENT ILLNESS This is a 50-year-old male patient of Dr. Vo past medical history of astrocytoma status post right temporal craniotomy along with chemotherapy and radiation therapy with chronic left sided paralysis, further craniotomies and resections were completed in 2016 in 2018, history of diabetes mellitus type 2, hypertension, hyperlipidemia, obstructive sleep apnea with BiPAP. Patient was in the office last week was found to have a potassium of 5.8. Blood work on November 22 revealed BUN of 44 creatinine 1.6 and potassium 4.9. Patient states that yesterday he was transferring from chair to commode chair and had weakness on his right side and lowered himself to the floor. He denies any fall or injury. Family member was in the home and called 911 and fire department came followed by EMS and patient was transferred to [facility] for evaluation. Patient denies having any cough, no dysuria, no skin breakdown or rashes. He denies any history of PE or DVT. She presented to [facility] emergency center. WBC 5.5, hemoglobin 11, platelet count 189. Potassium was 5.2, BUN 25 and creatinine 0.95. Was 5 followed by 3 followed by 1.8. AST 51, ALT 50, alkaline phosphates 355. Urinalysis was 3+ glucose otherwise negative for infection. Coronavirus PCR not detected. EKG was a sinus tachycardia with no acute ST changes. [facility] Subsequently CAT scan of the brain was done which revealed postsurgical changes with findings of encephalomalacia involving the right temporal lobe. Septal areas of increased attenuation in the right temporal lobe are stable from prior exam but not too small to categorize. Tiny petechial hemorrhage not excluded. Findings are stable from previous exam and may be related to chronic postoperative changes. Recommend follow-up MRI. Correlate for pontine infarct. Remote lacunar infarct involving the bilateral basal ganglia. Patient states that he is scheduled for an MRI of the brain as an outpatient. Chest x-ray reveals cardiomegaly. Patient is status post 1-1/2 L of IV fluid. IV fluids will be decreased to 75 mL per hour. REVIEW OF SYSTEMS Constitutional: No fever, no chills, no night sweats. No weight change. Reports weakness, reports fatigue. No daytime sleepiness. EENT: No headache. No blurred vision or double vision, no loss of vision. No loss of Hearing, no ringing in the ears, no dizziness. No nasal drainage or congestion. No epistaxis. No sore throat. Lungs: No shortness of breath, cough, no sputum production. No wheezing. Cardiovascular: No chest pain, no lower extremity edema. No palpitations. No paroxysmal nocturnal dyspnea. No orthopnea. No lightheadedness or dizziness. No syncopal episodes. Abdominal: No abdominal pain. No nausea, vomiting. No diarrhea. No constipation. No bloody or tarry stools.. No loss of appetite. Genitourinary: No dysuria, increased frequency, urgency. No urinary retention. Musculoskeletal: No myalgias. Reports muscle weakness, reports chronic gait dysfunction, no frequent falls. No back pain. No neck pain. Integumentary: No wounds, no lesions. No rash or pruritus. No unusual bruising. No change in hair or nails. Neurologic: No aphasia. No facial droop. No change in mentation. No head injury. No headache. No paralysis. No paresthesia. Psychiatric: No depression. No anxiety. No mood swings. Endocrine: No abnormal blood sugars. SOCIAL HISTORY Patient is a smoker of a half a pack per day and started in 2008. He has occasional alcohol use. He denies any marijuana or illicit drug use. He does have a BiPAP at home and all DME required including Yee lift an electric wheelchair. He has caregivers that assist him at home. He is . FAMILY HISTORY Mother is alive in her 70s with history of bipolar disorder. Father at age 64 from heart failure and also had diabetes. Patient has 1 brother with no major medical problems. Patient has 2 sisters with no major medical problems. Patient has 2 children, sons with no major medical problems. PHYSICAL EXAMINATION Gen: This is a morbidly obese 50-year-old male. He is sitting up in bed and appears to be comfortable. No acute distress is noted. HEENT: Head is atraumatic, normocephalic. Pupils equal, round. Sclerae is anicteric. Oral mucous members are moist. NECK: Supple. No JVD. No lymphadenopathy. No thyromegaly. LUNGS: Clear to auscultation. No wheezes or rhonchi. No intercostal retract ions. HEART: Regular rate and rhythm. No murmur. ABDOMEN: Soft. Bowel sounds are present. No masses. No tenderness. EXTREMITIES: No pedal edema. No calf tenderness. Dorsalis pedis palpable bilaterally. NEUROLOGICAL: Patient is awake, alert and oriented x3. Speech is slow and deliberate, slightly slurred. Paralysis of the left upper and lower extremities. ASSESSMENT AND PLAN 1. Lactic acidosis secondary to recent acute kidney injury, resolved, status post 1/2 L of IV fluids. Continue IV fluids at 75 mL per hour. Repeat blood work ordered for tomorrow. 2. Hyperkalemia secondary to dehydration. Recheck blood work tomorrow. 3. Right-sided weakness most likely secondary to hyperkalemia and recent episode of acute kidney injury, resolved. 4. Astrocytoma status post right temporal craniotomy on 3 occasions post chemotherapy and radiation therapy. Oncologist is Dr. Martínez. Consult with oncology. 5. 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 6. 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 Continue Keppra 750 mg twice daily. 7. Diabetes mellitus type 2. Continue Levemir 30 units daily, NovoLog 17 units twice daily with breakfast and lunch, 10 units with supper and NovoLog scale before meals and at bedtime, continue metformin 1000 mg twice daily. Patient is also on Ozempic at home. 8. Hypertension. Continue hydralazine 50 mg 3 times daily, start in 320 mg daily and Lasix 40 mg daily. 9. Hyperlipidemia. Continue Lipitor 80 mg at bedtime. 10. Chronic pain syndrome. Continue Voltaren gel topically 3 times daily as needed, Neurontin 800 mg 4 times daily. 11. Generalized anxiety disorder and recurrent depression. Continue Cymbalta 60 mg twice daily. 12. Active tobacco use and dependence. Patient started on nicotine patch daily 13. GI prophylaxis. Protonix. 14. DVT prophylaxis. Heparin subcu. Patient will be admitted to the hospital for a minimum of 2 night stay. DISCHARGE PLAN Most likely return home. Impression and plan of care have been directed as dictated by the signing physician. Tona Nunes nurse practitioner acting as scribe for signing physician. Past Medical History Past Medical History: Cancer, Diabetes Mellitus, Hyperlipidemia, Hypertension, Neurologic Disorder, Seizure Disorder, Sleep Apnea/CPAP/BIPAP Additional Past Medical History / Comment(s): Astrocytoma status post right temporal craniotomy. left arm paralysis, left leg paralysis. History of Any Multi-Drug Resistant Organisms: MRSA Date of last positivie culture/infection: 12/09/19 MDRO Source:: MRSA FOOT Past Surgical History: Bariatric Surgery, Orthopedic Surgery Additional Past Surgical History / Comment(s): brain tumor grade 3 removed April,, 2015, 2018. Lap band-removed 2013. Left leg fibia has rods and screws (July 17, 2020) Past Anesthesia/Blood Transfusion Reactions: No Reported Reaction, Unable to Obtain Past Psychological History: Anxiety, Depression Smoking Status: Current every day smoker Past Alcohol Use History: Occasional Past Drug Use History: None Reported - Past Family History Brother(s) Family Medical History: No Reported History Sister(s) Family Medical History: No Reported History Son(s) Family Medical History: No Reported History Mother History Unknown: Yes Family Medical History: No Reported History Father Family Medical History: Congestive Heart Failure (CHF), Diabetes Mellitus Medications and Allergies Home Medications Medication Instructions Recorded Confirmed Type Calcium Carbonate [Tums] 1,000 mg PO Q6H PRN 04/02/19 11/28/20 History Celecoxib [CeleBREX] 200 mg PO DAILY 04/02/19 11/28/20 History DULoxetine HCL [Cymbalta] 60 mg PO BID 04/02/19 11/28/20 History Gabapentin 800 mg PO QID 04/02/19 11/28/20 History hydrALAZINE HCL 50 mg PO TID 04/02/19 11/28/20 History Aloe [place] Foam 1 applic TOPICAL DIRECTED 11/10/20 11/28/20 History Diclofenac Sodium [Voltaren Gel] 1 gram TOPICAL TID 11/10/20 11/28/20 History Fluticasone Nasal [place] [Flonase 1 spr EA NOSTRIL DAILY 11/10/20 11/28/20 History Nasal [place]] Furosemide [Lasix] 40 mg PO DAILY 11/10/20 11/28/20 History INSULIN ASPART (NovoLOG) [NovoLOG 10 unit SQ AC-SUPPER 11/10/20 11/28/20 History (formulary)] INSULIN ASPART (NovoLOG) [NovoLOG 17 unit SQ AC-BID@0800,1200 11/10/20 11/28/20 History (formulary)] Insulin Glargine,Hum.rec.anlog 30 unit SQ DAILY 11/10/20 11/28/20 History [Lantus Solostar] Lomustine [Gleostine] 40 mg PO DIRECTED 11/10/20 11/28/20 History Ozempic 0.5mg/0.375ml 0.5 mg SQ MO 11/10/20 11/28/20 History Valsartan 320 mg PO DAILY 11/10/20 11/28/20 History levETIRAcetam [Keppra] 750 mg PO Q12HR 11/10/20 11/28/20 History oxyCODONE-APAP 7.5-325MG [Percocet 1 tab PO QID 11/10/20 11/28/20 History 7.5-325 mg] Atorvastatin Calcium [Lipitor] 80 mg PO HS 11/28/20 11/28/20 History metFORMIN HCL 1,000 mg PO BID 11/28/20 11/28/20 History Allergies Allergy/AdvReac Type Severity Reaction Status Date / Time lisinopril Allergy Unknown Verified 11/28/20 19:11 pioglitazone [From Actos] Allergy Unknown Verified 11/28/20 19:11 Physical Exam Vitals: Vital Signs Temp Pulse Pulse Resp BP BP Pulse Ox 11/29/20 08:00 95 18 11/29/20 07:38 97.9 F 95 18 101/67 91 L 11/29/20 01:02 97.9 F 100 16 110/75 90 L 11/28/20 20:59 101 H 16 129/75 98 11/28/20 20:30 98.4 F 107 H 18 132/94 97 11/28/20 19:10 101 H 18 134/84 95 11/28/20 17:54 103 H 18 109/67 95 11/28/20 17:03 98.4 F 107 H 18 94/67 94 L Intake and Output 11/28/20 11/29/20 11/29/20 22:59 06:59 14:59 Intake Total 1500 Output Total 600 1200 Balance -600 300 Intake: Intake, IV Titration 1500 Amount Sodium Chloride 0.9% 1, 1500 000 ml @ 125 mls/hr IV . Q8H [facility] Rx#:[id number] Output: Urine 600 1200 Straight 600 600 Other: Voiding Method Urinal Urinal Weight 176.447 kg Results CBC & Chem 7: 02/23/21 17:26 11/28/20 17:26 Labs: Abnormal Lab Results - Last 24 Hours (Table) 11/28/20 11/28/20 11/28/20 Range/Units 17:26 17:26 17:26 RBC 3.54 L (4.30-5.90) m/uL Hgb 11.0 L (13.0-17.5) gm/dL Hct 36.0 L (39.0-53.0) % MCV 101.9 H (80.0-100.0) fL MCHC 30.5 L (31.0-37.0) g/dL Potassium 5.2 H (3.5-5.1) mmol/L BUN 25 H (9-20) mg/dL Glucose 174 H (74-99) mg/dL POC Glucose (mg/dL) (75-99) mg/dL Plasma Lactic Acid Hern[place] 5.0 H* (0.7-2.0) mmol/L ALT 50 H (4-49) U/L Alkaline Phosphatase 355 H (38-126) U/L Albumin 3.3 L (3.5-5.0) g/dL Urine Protein (Negative) Urine Glucose (UA) (Negative) 11/28/20 11/28/20 11/29/20 Range/Units 20:27 20:59 06:47 RBC (4.30-5.90) m/uL Hgb (13.0-17.5) gm/dL Hct (39.0-53.0) % MCV (80.0-100.0) fL MCHC (31.0-37.0) g/dL Potassium (3.5-5.1) mmol/L BUN (9-20) mg/dL Glucose (74-99) mg/dL POC Glucose (mg/dL) 136 H (75-99) mg/dL Plasma Lactic Acid Hernando 3.0 H* (0.7-2.0) mmol/L ALT (4-49) U/L Alkaline Phosphatase (38-126) U/L Albumin (3.5-5.0) g/dL Urine Protein Trace H (Negative) Urine Glucose (UA) 3+ H (Negative) Thrombosis Risk Factor Assmnt - Choose All That Apply Each Factor Represents 1 point: Age 41-60 years Thrombosis Risk Factor Assessment Total Risk Factor Score: 1 Thrombosis Risk Factor Assessment Level: Low Risk
--- NOTE | 2020-11-29 15:40 | P.CONS ---
History of Present Illness - Reason for Consult Consult date: 11/29/20 Recurrent Brain Mass Requesting physician: Tona Nunes - Chief Complaint Weakness - History of Present Illness This is a very nice patient who was initially diagnosed with anaplastic astrocytoma in 2007 when he presented with seizure,he underwent resection by Dr Haynes in followed by radiation and temodar. He did well until when he presented with seizure and loss of consciousness to [facility],he was identified to have recurrent disease on MRI,he underwent resection by Dr Ellis on 11/27/2015 with pathology consistent with recurrent anaplastic astrocytoma,WHO grade III,he enrolled in clinical trial with [facility] but he stopped it in ,he had a repeat brain MRI at the [facility] on 04/16/2017 which revealed progressive disease in right temporal lobe,he was evaluated by Dr Chau at [facility] and he was presented at tumor board and the recommendation was for re resection anc clinical trials or systemic temodar outside clinical trial. He had a repeat brain MRI of brain at [facility] on 06/27/2017 which revealed stable disease,was re-evaluated by DR Haynes and Dr Chau,treatment with temodar was recommended. He started cyclic temodar in . Subsequently temodar was held in and he underwent right temporal craniotomy re-resection and Gliadel wafer in for recurrent disease. Since his craniotomy in ,he lost motor function on left side. repeat brain MRI on 03/24/2018 at [facility] revealed no evidence of recurrence. Repeat brain MRI on 04/04/2019 at [facility] revealed evidence of disease progression and tumor board recommended CCNU. He is in wheelchair,unable to use LUE and LLE,brought to office by EMS today 07/22/19-Pt here today after taking his 2nd dose of CCNU on 07/21/19. He denies any c/o on a 14 point ROS, 1 episode of nausea/vomiting but, it was last weekend-before he took CCNU. No other c/o, questions or concerns 09/07/2019: On 08/11/2019,he had repeat brain MRI locally,was read as possible local progression,however,he was re evaluated at [facility] by Dr Chau and felt that he is stable and continue with one more cycle of CCNU followed by repeat brain MRI.he has not resumed it yet due to delay from the [facility] in [place],hopefully,they will send it soon. he feels tired,has his chronic neurological deficit in LUE and LLE,in wheel chair,weak,no nausea/vomiting,no dyspnea.He is going to follow up with Dr chau after repeating brain MRI 03/27/2020: he feels fine,stable,he had his last cycle of CCNU recently which he tolerated well,he has a follow up MRI and with neurosurgeon at [facility] for further recommendations.he will contact me after his follow up visit. 10/27/2020: he had disease progression,the plan was to re irradiate the recurrence at [facility],however,he had one treatment in July/2020 then he fell and broke his leg,he came to see Dr. Martínez to discuss treatment closer to home. He has his chronic neurological deficit,he is wheelchair bound. He now presented to hospital with increased weakness. Review of Systems All systems: negative Constitutional: Reports as per HPI Past Medical History Past Medical History: Cancer, Diabetes Mellitus, Hyperlipidemia, Hypertension, Neurologic Disorder, Seizure Disorder, Sleep Apnea/CPAP/BIPAP Additional Past Medical History / Comment(s): Astrocytoma status post right temporal craniotomy. left arm paralysis, left leg paralysis. History of Any Multi-Drug Resistant Organisms: MRSA Year Discovered:: 12/09/19 MDRO Source:: MRSA FOOT Past Surgical History: Bariatric Surgery, Orthopedic Surgery Additional Past Surgical History / Comment(s): brain tumor grade 3 removed April, 2007, 2016, 2018. Lap band-removed 2013. Left leg fibia has rods and screws (July 17, 2020) Past Anesthesia/Blood Transfusion Reactions: No Reported Reaction, Unable to Obtain Past Psychological History: Anxiety, Depression Smoking Status: Current every day smoker Past Alcohol Use History: Occasional Past Drug Use History: None Reported - Past Family History Brother(s) Family Medical History: No Reported History Sister(s) Family Medical History: No Reported History Son(s) Family Medical History: No Reported History Mother History Unknown: Yes Family Medical History: No Reported History Father Family Medical History: Congestive Heart Failure (CHF), Diabetes Mellitus Medications and Allergies Home Medications Medication Instructions Recorded Confirmed Type Calcium Carbonate [Tums] 1,000 mg PO Q6H PRN 04/02/19 11/28/20 History Celecoxib [CeleBREX] 200 mg PO DAILY 04/02/19 11/28/20 History DULoxetine HCL [Cymbalta] 60 mg PO BID 04/02/19 11/28/20 History Gabapentin 800 mg PO QID 04/02/19 11/28/20 History hydrALAZINE HCL 50 mg PO TID 04/02/19 11/28/20 History Aloe [place] Foam 1 applic TOPICAL DIRECTED 11/10/20 11/28/20 History Diclofenac Sodium [Voltaren Gel] 1 gram TOPICAL TID 11/10/20 11/28/20 History Fluticasone Nasal [place] [Flonase 1 spr EA NOSTRIL DAILY 11/10/20 11/28/20 History Nasal [place]] Furosemide [Lasix] 40 mg PO DAILY 11/10/20 11/28/20 History INSULIN ASPART (NovoLOG) [NovoLOG 10 unit SQ AC-SUPPER 11/10/20 11/28/20 History (formulary)] INSULIN ASPART (NovoLOG) [NovoLOG 17 unit SQ AC-BID@0800,1200 11/10/20 11/28/20 History (formulary)] Insulin Glargine,Hum.rec.anlog 30 unit SQ DAILY 11/10/20 11/28/20 History [Lantus Solostar] Lomustine [Gleostine] 40 mg PO DIRECTED 11/10/20 11/28/20 History Ozempic 0.5mg/0.375ml 0.5 mg SQ MO 11/10/20 11/28/20 History Valsartan 320 mg PO DAILY 11/10/20 11/28/20 History levETIRAcetam [Keppra] 750 mg PO Q12HR 11/10/20 11/28/20 History oxyCODONE-APAP 7.5-325MG [Percocet 1 tab PO QID 11/10/20 11/28/20 History 7.5-325 mg] Atorvastatin Calcium [Lipitor] 80 mg PO HS 11/28/20 11/28/20 History metFORMIN HCL 1,000 mg PO BID 11/28/20 11/28/20 History Allergies Allergy/AdvReac Type Severity Reaction Status Date / Time lisinopril Allergy Unknown Verified 11/28/20 19:11 pioglitazone [From Actos] Allergy Unknown Verified 11/28/20 19:11 Physical Exam Vitals: Vital Signs Temp Pulse Pulse Resp BP BP Pulse Ox 11/29/20 14:00 98.2 F 99 18 109/73 91 L 11/29/20 08:00 95 18 11/29/20 07:38 97.9 F 95 18 101/67 91 L 11/29/20 01:02 97.9 F 100 16 110/75 90 L 11/28/20 20:59 101 H 16 129/75 98 11/28/20 20:30 98.4 F 107 H 18 132/94 97 11/28/20 19:10 101 H 18 134/84 95 11/28/20 17:54 103 H 18 109/67 95 11/28/20 17:03 98.4 F 107 H 18 94/67 94 L Intake and Output 11/29/20 11/29/20 11/29/20 06:59 14:59 22:59 Intake Total 1500 Output Total 1200 400 Balance 300 -400 Intake: Intake, IV Titration 1500 Amount Sodium Chloride 0.9% 1, 1500 000 ml @ 125 mls/hr IV . Q8H [facility] Rx#:[id number] Output: Urine 1200 400 Straight 600 Other: Voiding Method Urinal - Constitutional General appearance: cooperative, morbidly obese - EENT Eyes: abnormal pupil ENT: NA/AT - Respiratory Respiratory: bilateral: diminished (bibasilar) - Cardiovascular Rhythm: regular Heart sounds: normal: S1, S2 - Gastrointestinal General gastrointestinal: normal bowel sounds, soft - Integumentary Integumentary: pale - Neurologic Chronic deficits. - Musculoskeletal Weakness at baseline - Psychiatric Psychiatric: A&O x's 3 Results CBC & Chem 7: 11/28/20 17:26 11/28/20 17:26 Labs: Abnormal Lab Results - Last 24 Hours (Table) 11/28/20 11/28/20 11/28/20 Range/Units 17:26 17:26 17:26 RBC 3.54 L (4.30-5.90) m/uL Hgb 11.0 L (13.0-17.5) gm/dL Hct 36.0 L (39.0-53.0) % MCV 101.9 H (80.0-100.0) fL MCHC 30.5 L (31.0-37.0) g/dL Potassium 5.2 H (3.5-5.1) mmol/L BUN 25 H (9-20) mg/dL Glucose 174 H (74-99) mg/dL POC Glucose (mg/dL) (75-99) mg/dL Plasma Lactic Acid Hernando 5.0 H* (0.7-2.0) mmol/L ALT 50 H (4-49) U/L Alkaline Phosphatase 355 H (38-126) U/L Albumin 3.3 L (3.5-5.0) g/dL Urine Protein (Negative) Urine Glucose (UA) (Negative) 11/28/20 11/28/20 11/29/20 Range/Units 20:27 20:59 06:47 RBC (4.30-5.90) m/uL Hgb (13.0-17.5) gm/dL Hct (39.0-53.0) % MCV (80.0-100.0) fL MCHC (31.0-37.0) g/dL Potassium (3.5-5.1) mmol/L BUN (9-20) mg/dL Glucose (74-99) mg/dL POC Glucose (mg/dL) 136 H (75-99) mg/dL Plasma Lactic Acid Hernando 3.0 H* (0.7-2.0) mmol/L ALT (4-49) U/L Alkaline Phosphatase (38-126) U/L Albumin (3.5-5.0) g/dL Urine Protein Trace H (Negative) Urine Glucose (UA) 3+ H (Negative) CT Scan - head: report reviewed Assessment and Plan (1) Brain cancer Current Visit: Yes Status: Acute Code(s): C71.9 - MALIGNANT NEOPLASM OF BRAIN, UNSPECIFIED SNOMED Code(s): 945201368 (2) Debility Current Visit: Yes Status: Acute Code(s): R53.81 - OTHER MALAISE SNOMED Code(s): 69150720 Plan: Last visit plan was to assess if he was candidate for re-irradiation of brain, he follows so will have evaluate and provide recs. Repeat MRI of brain as well.
[2020-11-29 20:25] LABS: Glucose,Whole Blood 196 mg/dL (75-99)
[2020-11-29] MEDS: ATORVASTATIN 80 MG TAB PO SCH (21:29)
[2020-11-29] MEDS: HEPARIN SODIUM,PORCINE 5,000 UNIT/ML 1 ML VIAL SQ SCH (21:29)
[2020-11-30] MEDS: SODIUM CHLORIDE 0.9% 1,000 ML IV SCH (05:14)
[2020-11-30 06:52] LABS: Glucose,Whole Blood 126 mg/dL (75-99)
[2020-11-30] MEDS: INSULIN ASPART (NovoLOG) 100 UNIT/ML VIAL SQ SCH ×7 (06:59→21:55)
[2020-11-30 07:46] VITALS: RESP 18
[2020-11-30] MEDS: NICOTINE 14MG/24HR PATCH TRANSDERM SCH (07:54)
[2020-11-30] MEDS: INSULIN DETEMIR (LEVEMIR) 100 UNIT/ML SYR SQ SCH (07:54)
[2020-11-30] MEDS: oxyCODONE-APAP 7.5-325MG 1 EACH TAB PO SCH ×4 (07:54→21:54)
[2020-11-30] MEDS: hydrALAZINE HCL 50 MG TAB PO SCH ×3 (07:55→21:54)
[2020-11-30] MEDS: GABAPENTIN 400 MG CAP PO SCH ×4 (07:55→21:54)
[2020-11-30] MEDS: metFORMIN 500 MG TAB PO SCH ×2 (07:55→21:54)
[2020-11-30] MEDS: DULoxetine HCL 60 MG CAPSULE.DR PO SCH ×2 (07:55→21:54)
[2020-11-30] MEDS: HEPARIN SODIUM,PORCINE 5,000 UNIT/ML 1 ML VIAL SQ SCH ×2 (07:55→21:54)
[2020-11-30] MEDS: FUROSEMIDE 40 MG TAB PO SCH (07:55)
[2020-11-30] MEDS: PANTOPRAZOLE 40 MG TABLET PO SCH (07:55)
[2020-11-30] MEDS: VALSARTAN 160 MG TAB PO SCH (07:56)
[2020-11-30] MEDS: FLUTICASONE 50MCG/SPRAY NASAL 16GM EA NOSTRIL SCH (07:56)
[2020-11-30] MEDS ORDERED: diazePAM 5 MG TAB PO STA (09:23)
[2020-11-30 09:42] LABS: HCT 43.1 % (39.0-53.0); HGB 13.6 gm/dL (13.0-17.5); MCH 32.8 pg (25.0-35.0); MCHC 31.6 g/dL (31.0-37.0); MCV 103.7 fL (80.0-100.0); Macrocytosis Slight; Mean Platelet Volume 7.2; Platelet Count 227 k/uL (150-450); RBC 4.16 m/uL (4.30-5.90); RDW 13.3 % (11.5-15.5)
[2020-11-30 09:57] LABS: ALT 43 U/L (4-49); AST 35 U/L (17-59); African American GFR (CKD) >90 (>60 ml/min/1.73 sqM); Albumin 3.3 g/dL (3.5-5.0); Alkaline Phosphatase 338 U/L (38-126); Anion Gap 8 mmol/L; Blood Urea Nitrogen 23 mg/dL (9-20); Calcium 9.8 mg/dL (8.4-10.2); Carbon Dioxide 28 mmol/L (22-30); Chloride 102 mmol/L (98-107); Globulin 3.3 g/dL; Glucose 158 mg/dL (74-99); Non-African American GFR(CKD) >90 (>60 ml/min/1.73 sqM); Sodium 138 mmol/L (137-145); Total Bilirubin 0.5 mg/dL (0.2-1.3); Total Protein 6.6 g/dL (6.3-8.2)
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
[2020-11-30 11:41] LABS: Glucose,Whole Blood 166 mg/dL (75-99)
--- NOTE | 2020-11-30 16:13 | P.PN ---
Subjective Progress Note Date: 11/30/20 Principal diagnosis: Brain Cancer Patient seems a bit more confused during evaluation this am. i spoke with radiation oncology and if unable to undergo MRI here he will be set up outpatient open at [facility] Objective - Vital Signs Vital signs: Vital Signs Temp 98.0 F 11/30/20 14:00 Pulse 87 11/30/20 14:00 Resp 18 11/30/20 14:00 BP 119/77 11/30/20 14:00 Pulse Ox 96 11/30/20 14:00 Intake & Output 11/29/20 11/30/20 11/30/20 18:59 06:59 18:59 Output Total 400 1000 1450 Balance -400 -1000 -1450 Output: Urine 400 1000 1450 Other: Voiding Method Urinal Urinal Urinal # Voids 2 1 - Exam - Constitutional General appearance: cooperative, morbidly obese - EENT Eyes: abnormal pupil ENT: NA/AT - Respiratory Respiratory: bilateral: diminished (bibasilar) - Cardiovascular Rhythm: regular Heart sounds: normal: S1, S2 - Gastrointestinal General gastrointestinal: normal bowel sounds, soft - Integumentary Integumentary: pale - Neurologic Chronic deficits. - Musculoskeletal Weakness at baseline - Psychiatric Psychiatric: A&O x's 2 - Labs CBC & Chem 7: 11/30/20 08:56 11/30/20 08:56 Labs: Abnormal Lab Results - Last 24 Hours (Table) 11/29/20 11/30/20 11/30/20 Range/Units 20:23 06:48 08:56 RBC 4.16 L (4.30-5.90) m/uL MCV 103.7 H (80.0-100.0) fL BUN (9-20) mg/dL Glucose (74-99) mg/dL POC Glucose (mg/dL) 196 H 126 H (75-99) mg/dL Alkaline Phosphatase (38-126) U/L Albumin (3.5-5.0) g/dL 11/30/20 11/30/20 Range/Units 08:56 11:39 RBC (4.30-5.90) m/uL MCV (80.0-100.0) fL BUN 23 H (9-20) mg/dL Glucose 158 H (74-99) mg/dL POC Glucose (mg/dL) 166 H (75-99) mg/dL Alkaline Phosphatase 338 H (38-126) U/L Albumin 3.3 L (3.5-5.0) g/dL Assessment and Plan (1) Brain cancer Current Visit: Yes Status: Acute Code(s): C71.9 - MALIGNANT NEOPLASM OF BRAI N, UNSPECIFIED SNOMED Code(s): 424351715 (2) Debility Current Visit: Yes Status: Acute Code(s): R53.81 - OTHER MALAISE SNOMED Code(s): 82401045 Plan: Last visit plan was to assess if he was candidate for re-irradiation of brain, he follows so will have evaluate and provide recs. Repeat MRI of brain as well. Hopefully inpatient, although may need open mri Physician Attest: I have completed the full history and physical and agree with above dictation, dictated as a scribe.
[2020-11-30 16:46] LABS: Glucose,Whole Blood 175 mg/dL (75-99)
[2020-11-30 20:11] LABS: Glucose,Whole Blood 194 mg/dL (75-99)
[2020-11-30] MEDS: ATORVASTATIN 80 MG TAB PO SCH (21:54)
[2020-12-01 07:21] LABS: Glucose,Whole Blood 160 mg/dL (75-99)
[2020-12-01] MEDS: NICOTINE 14MG/24HR PATCH TRANSDERM SCH (07:40)
[2020-12-01] MEDS: FLUTICASONE 50MCG/SPRAY NASAL 16GM EA NOSTRIL SCH (07:40)
[2020-12-01] MEDS: INSULIN DETEMIR (LEVEMIR) 100 UNIT/ML SYR SQ SCH (07:41)
[2020-12-01] MEDS: HEPARIN SODIUM,PORCINE 5,000 UNIT/ML 1 ML VIAL SQ SCH (07:41)
[2020-12-01] MEDS: DULoxetine HCL 60 MG CAPSULE.DR PO SCH (07:41)
[2020-12-01] MEDS: hydrALAZINE HCL 50 MG TAB PO SCH (07:41)
[2020-12-01] MEDS: INSULIN ASPART (NovoLOG) 100 UNIT/ML VIAL SQ SCH ×4 (07:41→11:56)
[2020-12-01] MEDS: PANTOPRAZOLE 40 MG TABLET PO SCH (07:42)
[2020-12-01] MEDS: oxyCODONE-APAP 7.5-325MG 1 EACH TAB PO SCH ×2 (07:42→13:14)
[2020-12-01] MEDS: metFORMIN 500 MG TAB PO SCH (07:42)
[2020-12-01] MEDS: GABAPENTIN 400 MG CAP PO SCH ×2 (07:42→13:14)
[2020-12-01] MEDS: FUROSEMIDE 40 MG TAB PO SCH (07:42)
[2020-12-01] MEDS: VALSARTAN 160 MG TAB PO SCH (07:43)
[2020-12-01 08:37] VITALS: BP 135/71; PULSE 95; TEMP 98
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
[2020-12-01 11:32] LABS: Glucose,Whole Blood 157 mg/dL (75-99)
--- NOTE | 2020-12-01 21:11 | P.PN ---
Subjective Progress Note Date: 12/01/20 Principal diagnosis: Brain Cancer Attempt of MRI of the brain today was unsuccessful, he will have this done outpatient at [place]. Objective - Vital Signs Vital signs: Vital Signs Temp 98.0 F 12/01/20 07:42 Pulse 95 12/01/20 07:42 Resp 18 12/01/20 07:44 BP 135/71 12/01/20 07:42 Pulse Ox 95 12/01/20 07:42 Intake & Output 12/01/20 12/01/20 12/02/20 06:59 18:59 06:59 Intake Total 360 Balance 360 Intake: Oral 360 Other: Voiding Method Urinal Urinal # Voids 1 - Exam - Constitutional General appearance: cooperative, morbidly obese - EENT Eyes: abnormal pupil ENT: NA/AT - Respiratory Respiratory: bilateral: diminished (bibasilar) - Cardiovascular Rhythm: regular Heart sounds: normal: S1, S2 - Gastrointestinal General gastrointestinal: normal bowel sounds, soft - Integumentary Integumentary: pale - Neurologic Chronic deficits. - Musculoskeletal Weakness at baseline - Psychiatric Psychiatric: A&O x's 2 - Labs CBC & Chem 7: 11/30/20 08:56 11/30/20 08:56 Labs: Abnormal Lab Results - Last 24 Hours (Table) 12/01/20 12/01/20 Range/Units 07:18 11:30 POC Glucose (mg/dL) 160 H 157 H (75-99) mg/dL Assessment and Plan (1) Brain cancer Status: Acute Code(s): C71.9 - MALIGNANT NEOPLASM OF BRAIN, UNSPECIFIED SNOMED Code(s): 171385346 (2) Debility Status: Acute Code(s): R53.81 - OTHER MALAISE SNOMED Code(s): 68233545 Plan: Last visit plan was to assess if he was candidate for re-irradiation of brain, he follows so will have evaluate and provide recs. Repeat MRI of brain as well. unable to complete here, he is scheduled as outpatient for open mri Discussed with RN and primary team ok for discharge from oncology standpoint
[2020-12-04] MEDS ORDERED: OZEMPIC SQ SCH (09:00)
== END 2020-12-01 16:14 | disposition home health service (06) ==
LOC: EC 17:02 → 4SSUR 20:12 → INTOOBSV 11-29 09:41 → OBSVTOIN 11-29 09:41 → UNDODISIN 12-01 16:14
PROVIDERS: ADMIT Internal Medicine Geriatric Medicine; ATTEND Internal Medicine Geriatric Medicine
PROC: 5A09457 Assistance with Respiratory Ventilation, 24-96 Consecutive Hours, Continuous Positive Airway Pressure (ICD-10-PCS; principal; 2020-11-29)
DX: E87.5 Hyperkalemia (principal); C71.2 Malignant neoplasm of temporal lobe; N17.9 Acute kidney failure, unspecified; E86.0 Dehydration; E87.2 Acidosis; G81.04 Flaccid hemiplegia affecting left nondominant side; F33.9 Major depressive disorder, recurrent, unspecified; I11.9 Hypertensive heart disease without heart failure; G93.89 Other specified disorders of brain; E11.9 Type 2 diabetes mellitus without complications; E66.01 Morbid (severe) obesity due to excess calories; Z68.43 Body mass index [BMI] 50.0-59.9, adult; Z20.822 Contact with and (suspected) exposure to COVID-19; G40.909 Epilepsy, unspecified, not intractable, without status epilepticus; E78.5 Hyperlipidemia, unspecified; G47.33 Obstructive sleep apnea (adult) (pediatric); R00.0 Tachycardia, unspecified; F17.210 Nicotine dependence, cigarettes, uncomplicated; G89.4 Chronic pain syndrome; F41.1 Generalized anxiety disorder; Z79.891 Long term (current) use of opiate analgesic; Z79.4 Long term (current) use of insulin; Z79.1 Long term (current) use of non-steroidal anti-inflammatories (NSAID); Z79.899 Other long term (current) drug therapy; Z88.8 Allergy status to other drugs, medicaments and biological substances; Z86.14 Personal history of Methicillin resistant Staphylococcus aureus infection; Z87.81 Personal history of (healed) traumatic fracture; Z92.21 Personal history of antineoplastic chemotherapy; Z86.73 Personal history of transient ischemic attack (TIA), and cerebral infarction without residual deficits; Z99.3 Dependence on wheelchair; Z82.49 Family history of ischemic heart disease and other diseases of the circulatory system; Z83.3 Family history of diabetes mellitus; Z99.89 Dependence on other enabling machines and devices; Z98.84 Bariatric surgery status
CPT/HCPCS: 96361 ×4; 96372 ×3; 96360; 99285; 36415; 94660 ×3; 93005; 97530 ×2; 97162; 97535 ×2; 97166; 80053 ×2; 83605; 83735; 85025; 85027; 81003; 87635; 71045; 70450; G0378 ×4; J1644 ×3

== ENCOUNTER 2020-12-02 15:08 | Inpatient (IN) | payer MEDICARE ==
[2020-12-02 16:40] LABS: Basophils # (A) 0.1 k/uL (0-0.2); Basophils % (A) 1 %; Eosinophils # (A) 0.2 k/uL (0-0.7); Eosinophils % (A) 3 %; HGB 13.1 gm/dL (13.0-17.5); Lymphocytes # (A) 1.1 k/uL (1.0-4.8); Lymphocytes % (A) 13 %; MCH 33.2 pg (25.0-35.0); MCHC 32.9 g/dL (31.0-37.0); Mean Platelet Volume 7.6; Monocytes # (A) 0.7 k/uL (0-1.0); Monocytes % (A) 8 %; Neutrophils # (A) 6.2 k/uL (1.3-7.7); Neutrophils % (A) 74 %; Platelet Count 273 k/uL (150-450); RBC 3.96 m/uL (4.30-5.90); RDW 13.1 % (11.5-15.5); WBC 8.5 k/uL (3.8-10.6)
[2020-12-02 16:48] LABS: INR 0.9 (<1.2); Partial Thromboplastin Time 23.9 sec (22.0-30.0); Prothrombin Time 10.2 sec (9.0-12.0)
[2020-12-02 16:50] LABS: ALT 41 U/L (4-49); AST 43 U/L (17-59); African American GFR (CKD) >90 (>60 ml/min/1.73 sqM); Albumin 3.6 g/dL (3.5-5.0); Alkaline Phosphatase 331 U/L (38-126); Anion Gap 8 mmol/L; Blood Urea Nitrogen 25 mg/dL (9-20); Carbon Dioxide 30 mmol/L (22-30); Chloride 99 mmol/L (98-107); Creatine Kinase 53 U/L (55-170); Glucose 140 mg/dL (74-99); Non-African American GFR(CKD) >90 (>60 ml/min/1.73 sqM); Sodium 137 mmol/L (137-145); Total Bilirubin 0.6 mg/dL (0.2-1.3); Total Protein 6.9 g/dL (6.3-8.2)
[2020-12-02 17:06] LABS: Lactic Acid, Venous 2.1 mmol/L (0.7-2.0)
[2020-12-02 17:08] LABS: Potassium 5.2 mmol/L (3.5-5.1)
--- NOTE | 2020-12-02 17:30 | CT ---
EXAMINATION TYPE: CT brain wo con DATE OF EXAM: 12/02/2020 COMPARISON: 11/29/2020 HISTORY: Weakness. CT DLP: 1102.4 mGycm Automated exposure control for dose reduction was used. There is large area of hypodensity involving the right temporal lobe and right frontal and parietal l obe related to extensive old large infarct. There is enlargement of the right lateral ventricle. Ther e is no midline shift. There is no sign of intracranial hemorrhage. There is old right temporal crani otomy defect. The skull base is intact. 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 No change compared to recent exam. No acute intracranial abnormal ity.
--- NOTE | 2020-12-02 17:55 | ED ---
Weakness HPI - General Chief complaint: Weakness Stated complaint: Weakness Time Seen by Provider: 12/02/20 15:11 Source: patient, EMS Mode of arrival: EMS Limitations: physical limitation - History of Present Illness Initial comments: She is a 50-year-old male past medical history of diabetes, hypertension, hyperlipidemia, astrocytoma status post resection, chronic left-sided weakness who presents emergency Department as a failure to thrive. Patient was just discharged from the hospital yesterday for weakness. He went home with home care. Patient reports that since he has gone home he is unable to care for himself. He cannot get himself to the bathroom using his wheelchair. Reports to fatigue. Denies chest pain or shortness of breath. No headaches or visual changes. No neck pain. Denies fevers or chills. No nausea or vomiting. Admit s to poor appetite. Patient does wear brace to the left foot. States that his home care nurse evaluated his left foot and thought that his wound was infected due to drainage. Patient cannot evaluate his lower extremity wounds due to his body habitus. Feels that it was inappropriate for him to go home and that he should've chose rehab. No other alleviating, precipitating or modifying factors - Related Data Home Medications Medication Instructions Recorded Confirmed Calcium Carbonate [Tums] 1,000 mg PO Q6H PRN 04/02/19 12/02/20 Celecoxib [CeleBREX] 200 mg PO DAILY 04/02/19 12/02/20 DULoxetine HCL [Cymbalta] 60 mg PO BID 04/02/19 12/02/20 hydrALAZINE HCL 50 mg PO TID 04/02/19 12/02/20 Aloe [place] Foam 1 applic TOPICAL DIRECTED 11/10/20 12/02/20 Diclofenac Sodium [Voltaren Gel] 1 gram TOPICAL TID 11/10/20 12/02/20 Fluticasone Nasal [place] [Flonase 1 spr EA NOSTRIL DAILY 11/10/20 12/02/20 Nasal [place]] Furosemide [Lasix] 40 mg PO DAILY 11/10/20 12/02/20 INSULIN ASPART (NovoLOG) [NovoLOG 10 unit SQ AC-SUPPER 11/10/20 12/02/20 (formulary)] INSULIN ASPART (NovoLOG) [NovoLOG 17 unit SQ AC-BID@0800,1200 11/10/20 12/02/20 (formulary)] Insulin Glargine,Hum.rec.anlog 30 unit SQ DAILY 11/10/20 12/02/20 [Lantus Solostar] Lomustine [Gleostine] 40 mg PO Q42D 11/10/20 12/02/20 Ozempic 0.5mg/0.375ml 0.5 mg SQ MO 11/10/20 12/02/20 Valsartan 320 mg PO DAILY 11/10/20 12/02/20 levETIRAcetam [Keppra] 750 mg PO Q12HR 11/10/20 12/02/20 Atorvastatin Calcium [Lipitor] 80 mg PO HS 11/28/20 12/02/20 Previous Rx's Medication Instructions Recorded Nicotine 14Mg/24Hr Patch [Habitrol] 1 patch TRANSDERM DAILY #30 patch 12/01/20 Gabapentin 800 mg PO QID #12 tab 12/03/20 oxyCODONE-APAP 7.5-325MG [Percocet 1 tab PO QID #12 tab 12/03/20 7.5-325 mg] Cephalexin [Keflex] 500 mg PO Q8HR 5 Days #15 cap 12/04/20 SILVER sulfADIAZINE CREAM 1 applic TOPICAL BID applic 12/04/20 [Silvadene Cream] Allergies Allergy/AdvReac Type Severity Reaction Status Date / Time lisinopril Allergy Unknown Verified 12/02/20 16:50 pioglitazone [From Actos] Allergy Unknown Verified 12/02/20 16:50 Review of Systems ROS Statement: Those systems with pertinent positive or pertinent negative responses have been documented in the HPI. ROS Other: All systems not noted in ROS Statement are negative. Past Medical History Past Medical History: Cancer, Diabetes Mellitus, Hyperlipidemia, Hypertension, Neurologic Disorder, Seizure Disorder, Sleep Apnea/CPAP/BIPAP Additional Past Medical History / Comment(s): Astrocytoma status post right temporal craniotomy. left arm paralysis, left leg paralysis. 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 Lap band-removed 2013. Left leg fibia has rods and screws (July 17, 2020) Past Anesthesia/Blood Transfusion Reactions: No Reported Reaction, Unable to Obtain Past Psychological History: Anxiety, Depression Smoking Status: Current every day smoker Past Alcohol Use History: Occasional Past Drug Use History: None Reported - Past Family History Brother(s) Family Medical History: No Reported History Sister(s) Family Medical History: No Reported History Son(s) Family Medical History: No Reported History Mother History Unknown: Yes Family Medical History: No Reported History Father Family Medical History: Congestive Heart Failure (CHF), Diabetes Mellitus General Exam Limitations: altered mental status, physical limitation General appearance: lethargic, obese, other (falls alseep consistenly upon my exam and needs to be woken up several times with verbal stimuli) Eye exam: Present: normal appearance, PERRL, EOMI. Absent: scleral icterus, conjunctival injection, periorbital swelling ENT exam: Present: mucous membranes dry Neck exam: Present: normal inspection. Absent: tenderness, meningismus, lymphadenopathy Respiratory exam: Present: decreased breath sounds Cardiovascular Exam: Present: regular rate, normal rhythm, normal heart sounds. Absent: systolic murmur, diastolic murmur, rubs, gallop, clicks GI/Abdominal exam: Present: soft, normal bowel sounds. Absent: distended, tenderness, guarding, rebound, rigid Extremities exam: Present: other (skin tear left ankle, open wound lateral left great toe measuring 2 x x 2 cm) Neurological exam: Present: altered Psychiatric exam: Present: normal affect, normal mood Skin exam: Present: warm, dry, intact, normal color. Absent: rash Course Vital Signs 12/02/20 12/02/20 12/02/20 15:23 18:00 19:00 Temperature 98.3 F 97.9 F Pulse Rate 87 89 85 Respiratory 20 20 20 Rate Blood Pressure 130/82 145/69 135/82 O2 Sat by Pulse 96 99 99 Oximetry EKG Findings - EKG Comments: EKG Findings:: EKG demonstrates normal sinus rhythm with a ventricular rate of 89. IA interval 178. QRS 90. QTC of 464. Inverted T-wave in lead 3. No acute ST segment elevations Medical Decision Making - Medical Decision Making Upon arrival patient was placed into room 10. A thorough history and physical exam was performed. I did review the patient's charting from yesterday. Repeat laboratory studies were performed. Patient does appear overly sedated in the exam room. Denies taking any excess of his medications. Laboratory studies were conducted. Lactic acid is 2.1. VBG shows of the patient's CO2 is 51 however this is compensated with a bicarb of 32. I did take a wound culture of the patient's left great toe wound. X-ray was performed which demonstrates no signs of osteomyelitis. 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 I discussed results with the patient. He does appear more alert upon reexam. Recommended admission for possible rehab for which the patient did agree to. Patient was then taken to the floor in stable condition - Lab Data Result diagrams: 12/03/20 06:08 12/05/20 06:26 Lab Results 12/02/20 12/02/20 12/02/20 Range/Units 16:25 16:25 16:25 WBC 8.5 (3.8-10.6) k/uL RBC 3.96 L (4.30-5.90) m/uL Hgb 13.1 (13.0-17.5) gm/dL Hct 40.0 (39.0-53.0) % MCV 101.0 H (80.0-100.0) fL MCH 33.2 (25.0-35.0) pg MCHC 32.9 (31.0-37.0) g/dL RDW 13.1 (11.5-15.5) % Plt Count 273 (150-450) k/uL MPV 7.6 Neutrophils % 74 % Lymphocytes % 13 % Monocytes % 8 % Eosinophils % 3 % Basophils % 1 % Neutrophils # 6.2 (1.3-7.7) k/uL Lymphocytes # 1.1 (1.0-4.8) k/uL Monocytes # 0.7 (0-1.0) k/uL Eosinophils # 0.2 (0-0.7) k/uL Basophils # 0.1 (0-0.2) k/uL PT 10.2 (9.0-12.0) sec INR 0.9 (<1.2) APTT 23.9 (22.0-30.0) sec Sodium 137 (137-145) mmol/L Potassium 5.2 H (3.5-5.1) mmol/L Chloride 99 (98-107) mmol/L Carbon Dioxide 30 (22-30) mmol/L Anion Gap 8 mmol/L BUN 25 H (9-20) mg/dL Creatinine 0.79 (0.66-1.25) mg/dL Est GFR (CKD-EPI)AfAm >90 (>60 ml/min/1.73 sqM) Est GFR (CKD-EPI)NonAf >90 (>60 ml/min/1.73 sqM) Glucose 140 H (74-99) mg/dL Lactic Ac Sepsis Rflx Plasma Lactic Acid [place] (0.7-2.0) mmol/L Calcium 10.0 (8.4-10.2) mg/dL Total Bilirubin 0.6 (0.2-1.3) mg/dL AST 43 (17-59) U/L ALT 41 (4-49) U/L Alkaline Phosphatase 331 H (38-126) U/L Ammonia (<30) umol/L Creatine Kinase 53 L (55-170) U/L Troponin I (0.000-0.034) ng/mL Total Protein 6.9 (6.3-8.2) g/dL Albumin 3.6 (3.5-5.0) g/dL TSH 1.970 (0.465-4.680) mIU/L 12/02/20 12/02/20 12/02/20 Range/Units 16:25 16:25 17:06 WBC (3.8-10.6) k/uL RBC (4.30-5.90) m/uL Hgb (13.0-17.5) gm/dL Hct (39.0-53.0) % MCV (80.0-100.0) fL MCH (25.0-35.0) pg MCHC (31.0-37.0) g/dL RDW (11.5-15.5) % Plt Count (150-450) k/uL MPV Neutrophils % % Lymphocytes % % Monocytes % % Eosinophils % % Basophils % % Neutrophils # (1.3-7.7) k/uL Lymphocytes # (1.0-4.8) k/uL Monocytes # (0-1.0) k/uL Eosinophils # (0-0.7) k/uL Basophils # (0-0.2) k/uL PT (9.0-12.0) sec INR (<1.2) APTT (22.0-30.0) sec Sodium (137-145) mmol/L Potassium (3.5-5.1) mmol/L Chloride (98-107) mmol/L Carbon Dioxide (22-30) mmol/L Anion Gap mmol/L BUN (9-20) mg/dL Creatinine (0.66-1.25) mg/dL Est GFR (CKD-EPI)AfAm (>60 ml/min/1.73 sqM) Est GFR (CKD-EPI)NonAf (>60 ml/min/1.73 sqM) Glucose (74-99) mg/dL Lactic Ac Sepsis Rflx Y Plasma Lactic Acid [place] 2.1 H* (0.7-2.0) mmol/L Calcium (8.4-10.2) mg/dL Total Bilirubin (0.2-1.3) mg/dL AST (17-59) U/L ALT (4-49) U/L Alkaline Phosphatase (38-126) U/L Ammonia <9 (<30) umol/L Creatine Kinase (55-170) U/L Troponin I <0.012 (0.000-0.034) ng/mL Total Protein (6.3-8.2) g/dL Albumin (3.5-5.0) g/dL TSH (0.465-4.680) mIU/L Disposition Clinical Impression: Weakness, Debility, Brain cancer Disposition: ADMITTED IP TO [facility] Condition: Good Is patient prescribed a controlled substance at d/c from ED?: No Decision to Admit Reason: Admit from EC Decision Date: 12/02/20 Decision Time: 18:29
[2020-12-02] MEDS ORDERED: AMPICILLIN-SULBACTAM 3 GM in SODIUM CHLORIDE 0.9% 100 ML IVPB STA (18:17)
[2020-12-02] MEDS ORDERED: VANCOMYCIN IV PER PHARMACY 1 EACH MISC MISCELLANE PRN (18:18)
[2020-12-02] MEDS ORDERED: NALOXONE 0.4 MG/ML 1 ML VIAL IV PRN (18:29)
[2020-12-02] MEDS ORDERED: VANCOMYCIN 2,500 MG in SODIUM CHLORIDE 0.9% 500 ML 500 ML IVPB ONE (18:30)
[2020-12-02 18:46] LABS: ABG Base Excess 7.4 mmol/L; ABG HCO3 32 mmol/L (21-25); ABG Oxygen Saturation 96.2 % (94-97); ABG PCO2 51 mmHg (35-45); ABG PH 7.41 (7.35-7.45); ABG PO2 96 mmHg (83-108); ABG TCO2 34 mmol/L (19-24); Allen Test Performed? Yes
--- NOTE | 2020-12-02 19:10 | XR ---
EXAMINATION TYPE: XR foot complete LT DATE OF EXAM: 12/02/2020 COMPARISON: NONE HISTORY: Wound infection TECHNIQUE: 3 views FINDINGS: There is soft tissue swelling of the forefoot. There is plantar and Achilles calcaneal spur ring. There is intramedullary corina in the distal tibia. There is hypertrophic spurring anteriorly at t he navicular bone. IMPRESSION: Soft tissue swelling. No fracture seen.
[2020-12-02] MEDS: SODIUM CHLORIDE 0.9% 1,000 ML IV SCH (19:24)
[2020-12-02 20:50] LABS: Glucose,Whole Blood 114 mg/dL (75-99)
[2020-12-02] MEDS ORDERED: [UNRECOGNIZED DRUG - OTHER] TOPICAL SCH (21:45)
[2020-12-02] MEDS: ATORVASTATIN 80 MG TAB PO SCH (22:46)
[2020-12-02] MEDS: oxyCODONE-APAP 7.5-325MG 1 EACH TAB PO SCH (22:46)
[2020-12-02] MEDS: hydrALAZINE HCL 50 MG TAB PO SCH (22:46)
[2020-12-02] MEDS: GABAPENTIN 400 MG CAP PO SCH (22:47)
[2020-12-03] MEDS: levETIRAcetam 250 MG TAB PO SCH ×3 (00:15→21:11)
[2020-12-03] MEDS: DICLOFENAC SODIUM GEL 100 GM TUBE TOPICAL SCH ×4 (00:15→20:58)
[2020-12-03] MEDS: VANCOMYCIN 2,500 MG in SODIUM CHLORIDE 0.9% 500 ML 500 ML IVPB SCH ×3 (04:53→21:01)
[2020-12-03 07:02] LABS: Glucose,Whole Blood 158 mg/dL (75-99)
[2020-12-03] MEDS: INSULIN ASPART (NovoLOG) 100 UNIT/ML VIAL SQ SCH ×6 (07:41→20:57)
[2020-12-03] MEDS: INSULIN DETEMIR (LEVEMIR) 100 UNIT/ML SYR SQ SCH (07:41)
[2020-12-03] MEDS: DULoxetine HCL 60 MG CAPSULE.DR PO SCH ×2 (07:43→20:57)
[2020-12-03] MEDS: FUROSEMIDE 40 MG TAB PO SCH (07:43)
[2020-12-03] MEDS: FLUTICASONE 50MCG/SPRAY NASAL 16GM EA NOSTRIL SCH (07:43)
[2020-12-03] MEDS: GABAPENTIN 400 MG CAP PO SCH ×4 (07:43→20:59)
[2020-12-03] MEDS: hydrALAZINE HCL 50 MG TAB PO SCH ×3 (07:43→21:00)
[2020-12-03] MEDS: oxyCODONE-APAP 7.5-325MG 1 EACH TAB PO SCH ×4 (07:43→20:59)
[2020-12-03] MEDS: MELOXICAM 7.5 MG TAB PO SCH (07:46)
[2020-12-03] MEDS: NICOTINE 14MG/24HR PATCH TRANSDERM SCH (07:46)
[2020-12-03] MEDS: VALSARTAN 160 MG TAB PO SCH (08:43)
[2020-12-03 09:45] LABS: Basophils # (A) 0.04 X 10*3/uL (0.00-0.10); Basophils % (A) 0.6 %; Eosinophils # (A) 0.16 X 10*3/uL (0.04-0.35); Eosinophils % (A) 2.4 %; HCT 38.4 % (39.6-50.0); HGB 12.5 g/dL (13.0-17.0); Lymphocytes # (A) 1.04 X 10*3/uL (0.90-5.00); Lymphocytes % (A) 15.4 %; MCH 33.4 pg (27.0-32.0); MCHC 32.6 g/dL (32.0-37.0); MCV 102.7 fL (80.0-97.0); Mean Platelet Volume 9.7 fL (9.5-12.2); Monocytes # (A) 0.91 X 10*3/uL (0.20-1.00); Monocytes % (A) 13.4 %; Neutrophils # (A) 4.59 X 10*3/uL (1.80-7.70); Neutrophils % (A) 67.8 %; Platelet Count 257 X 10*3/uL (140-440); RBC 3.74 X 10*6/uL (4.40-5.60); WBC 6.77 X 10*3/uL (4.50-10.00)
[2020-12-03 10:01] LABS: African American GFR (CKD) 115.8 (60.0-200.0); Anion Gap 7.8 mmol/L (4.00-12.00); BUN/Creat Ratio 24.44 Ratio (12.00-20.00); Calcium 9.5 mg/dL (8.7-10.3); Carbon Dioxide 30.2 mmol/L (21.6-31.8); Non-African American GFR(CKD) 99.9 (60.0-200.0); Potassium 4.6 mmol/L (3.5-5.5)
--- NOTE | 2020-12-03 10:08 | P.HPIM ---
History of Present Illness H&P Date: 12/03/20 HISTORY OF PRESENT ILLNESS This is a 50-year-old male patient of Dr. Vo past medical history of astrocytoma status post right temporal craniotomy along with chemotherapy and radiation therapy with chronic left sided paralysis, further craniotomies and resections were completed in 2016 in 2018, history of diabetes mellitus type 2, hypertension, hyperlipidemia, obstructive sleep apnea with BiPAP. Patient presented to the emergency center on November 29 due to weakness, admitted to the hospital and treated for lactic acidosis, acute kidney injury and hyperka lemia, right-sided weakness. Patient was discharged home despite recommendations that patient would need additional help and benefit from subacute rehab. Patient has home care and caregivers in place. Patient return to the hospital as he was unable to care for himself. He cannot get himself in the bathroom using his wheelchair, increased fatigue. No chest pain or shortness of breath. No headache or visual changes. No fever or chills. No nausea, vomiting. Patient has drainage from wounds left lower extremity. Patient presented to [facility] emergency center. He was a febrile, heart rate 87, blood pressure 130/82, pulse ox 96% on room air. CBC was unremarkable. Potassium 5.2, BUN 25 and creatinine 0.79, blood sugar 140. Alkaline phosphatase 331, CK 53, TSH 1.970. Lactic acid 2.1. Ammonia level less than 9. Troponin negative. Foot x-ray shows soft tissue swelling. No fracture. Patient admitted to the [facility] floor. Patient was started on Unasyn and vancomycin. REVIEW OF SYSTEMS Constitutional: No fever, no chills, no night sweats. No weight change. Reports weakness, reports fatigue. No daytime sleepiness. EENT: No headache. No blurred vision or double vision, no loss of vision. No loss of Hearing, no ringing in the ears, no dizziness. No nasal drainage or congestion. No epistaxis. No sore throat. Lungs: No shortness of breath, cough, no sputum production. No wheezing. Cardiovascular: No chest pain, no lower extremity edema. No palpitations. No paroxysmal nocturnal dyspnea. No orthopnea. No lightheadedness or dizziness. No syncopal episodes. Abdominal: No abdominal pain. No nausea, vomiting. No diarrhea. No constipation. No bloody or tarry stools.. No loss of appetite. Genitourinary: No dysuria, increased frequency, urgency. No urinary retention. Musculoskeletal: No myalgias. Reports muscle weakness, reports chronic gait dysfunction, no frequent falls. No back pain. No neck pain. Integumentary: No wounds, no lesions. No rash or pruritus. No unusual bruising. No change in hair or nails. Neurologic: No aphasia. No facial droop. No change in mentation. No head injury. No headache. No paralysis. No paresthesia. Psychiatric: No depression. No anxiety. No mood swings. Endocrine: No abnormal blood sugars. SOCIAL HISTORY Patient is a smoker of a half a pack per day and started in 2008. He has occasional alcohol use. He denies any marijuana or illicit drug use. He does have a BiPAP at home and all DME required including [employer] lift an electric whee lchair. He has caregivers that assist him at home. He is . FAMILY HISTORY Mother is alive in her 70s with history of bipolar disorder. Father at age 64 from heart failure and also had diabetes. Patient has 1 brother with no major medical problems. Patient has 2 sisters with no major medical problems. Patient has 2 children, sons with no major medical problems. PHYSICAL EXAMINATION Gen: This is a morbidly obese 50-year-old male. He is sitting up in bed and appears to be comfortable. No acute distress is noted. HEENT: Head is atraumatic, normocephalic. Pupils equal, round. Sclerae is anicteric. Oral mucous members are moist. NECK: Supple. No JVD. No lymphadenopathy. No thyromegaly. LUNGS: Clear to auscultation. No wheezes or rhonchi. No intercostal retractions. HEART: Regular rate and rhythm. No murmur. ABDOMEN: Soft. Bowel sounds are present. No masses. No tenderness. EXTREMITIES: No pedal edema. No calf tenderness. Dorsalis pedis palpable bilaterally. Wounds noted to the bilateral lower extremity and left foot. NEUROLOGICAL: Patient is awake, alert and oriented x3. Speech is slow and deliberate, slightly slurred. Paralysis of the left upper and lower extremities. ASSESSMENT AND PLAN 1. Lactic acidosis, resolved. Continue IV fluids at 20 mL per hour. Hold met formin. 2. Hyperkalemia secondary to dehydration, resolved. 3. Wounds to the lower extremities. Consult with wound care team. 4. Astrocytoma status post right temporal craniotomy on 3 occasions post chemotherapy and radiation therapy. Oncologist is Dr. Martínez. Patient was unable to fit in the MRI machine on last admission. Oncology had scheduled outpatient MRI of the brain at open MRI machine. 5. 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 6. 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 Continue Keppra 750 mg twice daily. 7. Diabetes mellitus type 2. Continue Levemir 30 units daily, NovoLog 17 units twice daily with breakfast and lunch, 10 units with supper and NovoLog scale before meals and at bedtime, hold metformin 1000 mg twice daily. Patient is also on Ozempic at home. 8. Hypertension. Continue hydralazine 50 mg 3 times daily, valsartan 320 mg daily and Lasix 40 mg daily. 9. Hyperlipidemia. Continue Lipitor 80 mg at bedtime. 10. Chronic pain syndrome. Continue Voltaren gel topically 3 times daily as needed, Neurontin 800 mg 4 times daily. 11. Generalized anxiety disorder and recurrent depression. Continue Cymbalta 60 mg twice daily. 12. Active tobacco use and dependence. Patient started on nicotine patch daily 13. GI prophylaxis. Protonix. 14. DVT prophylaxis. Heparin subcu. Patient will be admitted to the hospital for a minimum of 2 night stay. DISCHARGE PLAN [facility] on Friday. Impression and plan of care have been directed as dictated by the signing physician. Tona Nunes nurse practitioner acting as scribe for signing physician. Past Medical History Past Medical History: Cancer, Diabetes Mellitus, Hyperlipidemia, Hypertension, Neurologic Disorder, Seizure Disorder, Sleep Apnea/CPAP/BIPAP Additional Past Medical History / Comment(s): Astrocytoma status post right temporal craniotomy. left arm paralysis, left leg paralysis. 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 Lap band-removed 2013. Left leg fibia has rods and screws (July 17, 2020) Past Anesthesia/Blood Transfusion Reactions: No Reported Reaction, Unable to Obtain Past Psychological History: Anxiety, Depression Smoking Status: Current every day smoker Past Alcohol Use History: Occasional Past Drug Use History: None Reported - Past Family History Brother(s) Family Medical History: No Reported History Sister(s) Family Medical History: No Reported History Son(s) Family Medical History: No Reported History Mother History Unknown: Yes Family Medical History: No Reported History Father Family Medical History: Congestive Heart Failure (CHF), Diabetes Mellitus Medications and Allergies Home Medications Medication Instructions Recorded Confirmed Type Calcium Carbonate [Tums] 1,000 mg PO Q6H PRN 04/02/19 12/02/20 History Celecoxib [CeleBREX] 200 mg PO DAILY 04/02/19 12/02/20 History DULoxetine HCL [Cymbalta] 60 mg PO BID 04/02/19 12/02/20 History Gabapentin 800 mg PO QID 04/02/19 12/02/20 History hydrALAZINE HCL 50 mg PO TID 04/02/19 12/02/20 History Aloe [place] Foam 1 applic TOPICAL DIRECTED 11/10/20 12/02/20 History Diclofenac Sodium [Voltaren Gel] 1 gram TOPICAL TID 11/10/20 12/02/20 History Fluticasone Nasal [place] [Flonase 1 spr EA NOSTRIL DAILY 11/10/20 12/02/20 Histor y Nasal [place]] Furosemide [Lasix] 40 mg PO DAILY 11/10/20 12/02/20 History INSULIN ASPART (NovoLOG) [NovoLOG 10 unit SQ AC-SUPPER 11/10/20 12/02/20 History (formulary)] INSULIN ASPART (NovoLOG) [NovoLOG 17 unit SQ AC-BID@0800,1200 11/10/20 12/02/20 History (formulary)] Insulin Glargine,Hum.rec.anlog 30 unit SQ DAILY 11/10/20 12/02/20 History [Lantus Solostar] Lomustine [Gleostine] 40 mg PO Q42D 11/10/20 12/02/20 History Ozempic 0.5mg/0.375ml 0.5 mg SQ MO 11/10/20 12/02/20 History Valsartan 320 mg PO DAILY 11/10/20 12/02/20 History levETIRAcetam [Keppra] 750 mg PO Q12HR 11/10/20 12/02/20 History oxyCODONE-APAP 7.5-325MG [Percocet 1 tab PO QID 11/10/20 12/02/20 History 7.5-325 mg] Atorvastatin Calcium [Lipitor] 80 mg PO HS 11/28/20 12/02/20 History metFORMIN HCL 1,000 mg PO BID 11/28/20 12/02/20 History Nicotine 14Mg/24Hr Patch [Habitrol] 1 patch TRANSDERM DAILY #30 patch 12/01/20 12/02/20 Rx Allergies Allergy/AdvReac Type Severity Reaction Status Date / Time lisinopril Allergy Unknown Verified 12/02/20 16:50 pioglitazone [From Actos] Allergy Unknown Verified 12/02/20 16:50 Physical Exam Vitals: Vital Signs Temp Pulse Pulse Resp BP BP Pulse Ox 12/03/20 08:00 97.5 F L 88 19 121/83 95 12/03/20 00:20 97.9 F 87 18 129/84 94 L 12/02/20 20:27 85 20 12/02/20 20:12 97.9 F 85 20 137/89 99 12/02/20 19:00 97.9 F 85 20 135/82 99 12/02/20 18:00 89 20 145/69 99 12/02/20 15:23 98.3 F 87 20 130/82 96 Intake and Output 12/02/20 12/03/20 12/03/20 22:59 06:59 14:59 Output Total 800 Balance -800 Output: Urine 800 Other: # Voids 3 Weight 179.169 kg Results CBC & Chem 7: 12/03/20 06:08 12/02/20 16:25 Labs: Abnormal Lab Results - Last 24 Hours (Table) 12/02/20 12/02/20 12/02/20 Range/Units 16:25 16:25 16:25 RBC 3.96 L (4.30-5.90) m/uL MCV 101.0 H (80.0-100.0) fL ABG pCO2 (35-45) mmHg ABG HCO3 (21-25) mmol/L ABG Total CO2 (19-24) mmol/L Potassium 5.2 H (3.5-5.1) mmol/L BUN 25 H (9-20) mg/dL Glucose 140 H (74-99) mg/dL POC Glucose (mg/dL) (75-99) mg/dL Plasma Lactic Acid [place] 2.1 H* (0.7-2.0) mmol/L Alkaline Phosphatase 331 H (38-126) U/L Creatine Kinase 53 L (55-170) U/L 12/02/20 12/02/20 12/03/20 Range/Units 18:44 20:49 07:01 RBC (4.30-5.90) m/uL MCV (80.0-100.0) fL ABG pCO2 51 H (35-45) mmHg ABG HCO3 32 H (21-25) mmol/L ABG Total CO2 34 H (19-24) mmol/L Potassium (3.5-5.1) mmol/L BUN (9-20) mg/dL Glucose (74-99) mg/dL POC Glucose (mg/dL) 114 H 158 H (75-99) mg/dL Plasma Lactic Acid [place] (0.7-2.0) mmol/L Alkaline Phosphatase (38-126) U/L Creatine Kinase (55-170) U/L Thrombosis Risk Factor Assmnt - Choose All That Apply Each Factor Represents 1 point: Age 41-60 years Thrombosis Risk Factor Assessment Total Risk Factor Score: 1 Thrombosis Risk Factor Assessment Level: Low Risk
[2020-12-03 11:27] LABS: Glucose,Whole Blood 174 mg/dL (75-99)
[2020-12-03 16:32] LABS: Glucose,Whole Blood 90 mg/dL (75-99)
[2020-12-03 18:08] LABS: Appearance,Urine Clear (Clear); Bacteria,Urine Rare /hpf; Bilirubin,Urine Negative (Negative); Blood,Urine Negative (Negative); Color,Urine Yellow; Glucose,Urine (UA) Negative (Negative); Ketones,Urine Negative (Negative); Leukocyte Esterase,Urine Small (Negative); Mucus,Urine Rare /hpf; Nitrite,Urine Negative (Negative); PH, Urine 5.5 (5.0-8.0); Protein,Urine Trace (Negative); RBC,Urine 6 /hpf (0-5); Specific Gravity,Urine 1.024 (1.001-1.035); Squamous Epithelial Cell,Urine <1 /hpf (0-4); Urobilinogen,Urine <2.0 mg/dL (<2.0); WBC,Urine 11 /hpf (0-5)
[2020-12-03 18:17] LABS: Amphetamine Screen,Urine Not Detected (NotDetected); Barbiturate Screen,Urine Not Detected (NotDetected); Benzodiazepines Screen,Urine Not Detected (NotDetected); Cocaine Screen,Urine Not Detected (NotDetected); Methadone Screen, Urine Not Detected (NotDetected); Opiate Screen,Urine Not Detected (NotDetected); Oxycodone Screen, Urine Not Detected (NotDetected); Phencyclidine Screen,Urine Not Detected (NotDetected); Tricyclic Antidepressant,Urine Not Detected (NotDetected); Urn Cannabinoid Scrn Not Detected (NotDetected)
[2020-12-03 20:21] LABS: Glucose,Whole Blood 152 mg/dL (75-99)
[2020-12-03] MEDS: ATORVASTATIN 80 MG TAB PO SCH (20:57)
[2020-12-03] MEDS: SODIUM CHLORIDE 0.9% 1,000 ML IV SCH (21:01)
[2020-12-04] MEDS ORDERED: VANCOMYCIN TROUGH DUE 1 EACH MISC MISCELLANE ONE (04:00)
[2020-12-04] MEDS: VANCOMYCIN 2,500 MG in SODIUM CHLORIDE 0.9% 500 ML 500 ML IVPB SCH (05:19)
[2020-12-04] MEDS ORDERED: VANCOMYCIN IV PER PHARMACY 1 EACH MISC MISCELLANE PRN (05:20)
[2020-12-04 07:18] LABS: Glucose,Whole Blood 145 mg/dL (75-99)
[2020-12-04] MEDS: INSULIN ASPART (NovoLOG) 100 UNIT/ML VIAL SQ SCH ×7 (07:42→21:08)
[2020-12-04] MEDS: GABAPENTIN 400 MG CAP PO SCH ×4 (08:03→21:09)
[2020-12-04] MEDS: oxyCODONE-APAP 7.5-325MG 1 EACH TAB PO SCH ×4 (08:03→21:09)
[2020-12-04] MEDS: FUROSEMIDE 40 MG TAB PO SCH (08:03)
[2020-12-04] MEDS: DULoxetine HCL 60 MG CAPSULE.DR PO SCH ×2 (08:03→21:09)
[2020-12-04] MEDS: hydrALAZINE HCL 50 MG TAB PO SCH ×3 (08:03→21:09)
[2020-12-04] MEDS: MELOXICAM 7.5 MG TAB PO SCH (08:03)
[2020-12-04] MEDS: INSULIN DETEMIR (LEVEMIR) 100 UNIT/ML SYR SQ SCH (08:04)
[2020-12-04] MEDS: FLUTICASONE 50MCG/SPRAY NASAL 16GM EA NOSTRIL SCH (08:05)
[2020-12-04] MEDS: levETIRAcetam 250 MG TAB PO SCH ×2 (08:05→21:39)
[2020-12-04] MEDS: VALSARTAN 160 MG TAB PO SCH (08:06)
[2020-12-04] MEDS: NICOTINE 14MG/24HR PATCH TRANSDERM SCH (08:06)
[2020-12-04] MEDS: DICLOFENAC SODIUM GEL 100 GM TUBE TOPICAL SCH ×3 (08:06→21:08)
[2020-12-04 09:24] LABS: African American GFR (CKD) 90.9 (60.0-200.0); Non-African American GFR(CKD) 78.4 (60.0-200.0)
--- NOTE | 2020-12-04 09:38 | P.DS ---
Providers Date of admission: 12/02/20 18:29 Expected date of discharge: 12/05/20 Attending physician: Caesar Glaser Primary care physician: Kathryn Vo [facility] Course: HISTORY OF PRESENT ILLNESS This is a 50-year-old male patient of Dr. Vo past medical history of astrocytoma status post right temporal craniotomy along with chemotherapy and radiation therapy with chronic left sided paralysis, further craniotomies and resections were completed in 2016 in 2018, history of diabetes mellitus type 2, hypertension, hyperlipidemia, obstructive sleep apnea with BiPAP. Patient presented to the emergency center on November 29 due to weakness, admitted to the hospital and treated for lactic acidosis, acute kidney injury and hyperkalemia, right-sided weakness. Patient was discharged home despite recomm endations that patient would need additional help and benefit from subacute rehab. Patient has home care and caregivers in place. Patient return to the hospital as he was unable to care for himself. He cannot get himself in the bathroom using his wheelchair, increased fatigue. No chest pain or shortness of breath. No headache or visual changes. No fever or chills. No nausea, vomiting. Patient has drainage from wounds left lower extremity. Patient presented to [facility] emergency center. He was afebrile, heart rate 87, blood pressure 130/82, pulse ox 96% on room air. CBC was unremarkable. Potassium 5.2, BUN 25 and creatinine 0.79, blood sugar 140. Alkaline phosphatase 331, CK 53, TSH 1.970. Lactic acid 2.1. Ammonia level less than 9. Troponin negative. Foot x-ray shows soft tissue swelling. No fracture. Patient admitted to the MedSurg floor. Patient was started on Unasyn and vancomycin. 12/04: Patient denies any new complaints today. He was scheduled for discharge to medical [place] but due to financial obligations with [facility], his choice of nursing homes is changed to [facility]. Social work is following closely. He has been afebrile, heart rate 85, blood pressure 112/79, pulse ox 94%. Patient did utilize CPAP during the night. Vancomycin trough is 40 and repeat level ordered for tomorrow. Creatinine is 1.1. [facility] [place] [facility] Consult is in place with wound care team. Patient will be discharged to ECF today if arrangements can be completed. 3/: Patient has been afebrile, heart rate 92, blood pressure 110/69, pulse ox 90-94% on room air. Vancomycin level XIV.3. Blood sugars are running 196-250. Patient was not discharged to subacute rehab yesterday as we are waiting for insurance authorization. Most likely this will be obtained today and patient can be discharge in stable condition. ASSESSMENT AND PLAN 1. Lactic acidosis, resolved. Hold metformin. 2. Hyperkalemia secondary to dehydration, resolved. 3. Wounds to the lower extremities. 4. Astrocytoma status post right temporal craniotomy on 3 occasions post chemotherapy and radiation therapy. Oncologist is Dr. Martínez. Patient was unable to fit in the MRI machine on last admission. Oncology had scheduled outpatient MRI of the brain at open MRI machine. 5. 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 6. 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 7. Diabetes mellitus type 2. 8. Hypertension. 9. Hyperlipidemia. 10. Chronic pain syndrome. 11. Generalized anxiety disorder and recurrent depression. 12. Active tobacco use and dependence. DISCHARGE PLAN [employer] . Impression and plan of care have been directed as dictated by the signing physician. Tona Nunes nurse practitioner acting as scribe for signing physician. Patient Condition at Discharge: Good Plan - Discharge Summary Discharge Rx Participant: No New Discharge Prescriptions: New SILVER sulfADIAZINE CREAM [Silvadene Cream] 1 applic TOPICAL BID applic Cephalexin [Keflex] 500 mg PO Q8HR 5 Days #15 cap Continue DULoxetine HCL [Cymbalta] 60 mg PO BID Celecoxib [CeleBREX] 200 mg PO DAILY Calcium Carbonate [Tums] 1,000 mg PO Q6H PRN PRN Reason: Heartburn hydrALAZINE HCL 50 mg PO TID Diclofenac Sodium [Voltaren Gel] 1 gram TOPICAL TID levETIRAcetam [Keppra] 750 mg PO Q12HR Insulin Glargine,Hum.rec.anlog [Lantus Solostar] 30 unit SQ DAILY INSULIN ASPART (NovoLOG) [NovoLOG (formulary)] 10 unit SQ AC-SUPPER INSULIN ASPART (NovoLOG) [NovoLOG (formulary)] 17 unit SQ AC-BID@0800,1200 Furosemide [Lasix] 40 mg PO DAILY Valsartan 320 mg PO DAILY Lomustine [Gleostine] 40 mg PO Q42D Fluticasone Nasal [place] [Flonase Nasal [place]] 1 spr EA NOSTRIL DAILY Ozempic 0.5mg/0.375ml 0.5 mg SQ MO Aloe [place] Foam 1 applic TOPICAL DIRECTED Atorvastatin Calcium [Lipitor] 80 mg PO HS Nicotine 14Mg/24Hr Patch [Habitrol] 1 patch TRANSDERM DAILY #30 patch Gabapentin 800 mg PO QID #12 tab oxyCODONE-APAP 7.5-325MG [Percocet 7.5-325 mg] 1 tab PO QID #12 tab Discontinued metFORMIN HCL 1,000 mg PO BID Discharge Medication List Calcium Carbonate [Tums] 1,000 mg PO Q6H PRN 04/02/19 [History] Celecoxib [CeleBREX] 200 mg PO DAILY 04/02/19 [History] DULoxetine HCL [Cymbalta] 60 mg PO BID 04/02/19 [History] hydrALAZINE HCL 50 mg PO TID 04/02/19 [History] Aloe [place] Foam 1 applic TOPICAL DIRECTED 11/10/20 [History] Diclofenac Sodium [Voltaren Gel] 1 gram TOPICAL TID 11/10/20 [History] Fluticasone Nasal [place] [Flonase Nasal [place]] 1 spr EA NOSTRIL DAILY 11/10/20 [History] Furosemide [Lasix] 40 mg PO DAILY 11/10/20 [History] INSULIN ASPART (NovoLOG) [NovoLOG (formulary)] 10 unit SQ AC-SUPPER 11/10/20 [History] INSULIN ASPART (NovoLOG) [NovoLOG (formulary)] 17 unit SQ AC-BID@0800,1200 11/10/20 [History] Insulin Glargine,Hum.rec.anlog [Lantus Solostar] 30 unit SQ DAILY 11/10/20 [History] Lomustine [Gleostine] 40 mg PO Q42D 11/10/20 [History] Ozempic 0.5mg/0.375ml 0.5 mg SQ MO 11/10/20 [History] Valsartan 320 mg PO DAILY 11/10/20 [History] levETIRAcetam [Keppra] 750 mg PO Q12HR 11/10/20 [History] Atorvastatin Calcium [Lipitor] 80 mg PO HS 11/28/20 [History] Nicotine 14Mg/24Hr Patch [Habitrol] 1 patch TRANSDERM DAILY #30 patch 12/01/20 [Rx] Gabapentin 800 mg PO QID #12 tab 12/03/20 [Rx] oxyCODONE-APAP 7.5-325MG [Percocet 7.5-325 mg] 1 tab PO QID #12 tab 12/03/20 [Rx] Cephalexin [Keflex] 500 mg PO Q8HR 5 Days #15 cap 12/04/20 [Rx] SILVER sulfADIAZINE CREAM [Silvadene Cream] 1 applic TOPICAL BID applic 12/04/20 [Rx] Follow up Appointment(s)/Referral(s): Kathryn Vo MD [Primary Care Provider] - 1 Week (at [facility], [NON-STAFF] - As Needed Ambulatory/Diagnostic Orders: Basic Metabolic Panel [LAB.AMB] Location: None Selected Vancomycin,Trough [LAB.AMB] Location: None Selected Patient Instructions/Handouts: Weakness (DC) Discharge Disposition: TRANSFER TO SNF/ECF Care Plan Goals (MU): Silvadene cream to LLE, wrap with kerlix gauze and cortes wrap daily.
--- NOTE | 2020-12-04 11:42 | P.PN ---
Subjective Progress Note Date: 12/04/20 HISTORY OF PRESENT ILLNESS This is a 50-year-old male patient of Dr. Vo past medical history of astrocytoma status post right temporal craniotomy along with chemotherapy and radiation therapy with chronic left sided paralysis, further craniotomies and resections were completed in 2016 in 2018, history of diabetes mellitus type 2, hypertension, hyperlipidemia, obstructive sleep apnea with BiPAP. Patient presented to the emergency center on November 29 due to weakness, admitted to the hospital and treated for lactic acidosis, acute kidney injury and hyperkalemia, right-sided weakness. Patient was discharged home despite recommendations that patient would need additional help and benefit from subacute rehab. Patient has home care and caregivers in place. Patient return to the hospital as he was unable to care for himself. He cannot get himself in the bathroom using his wheelchair, increased fatigue. No chest pain or shortness of breath. No headache or visual changes. No fever or chills. No nausea, vomiting. Patient has drainage from wounds left lower extremity. Patient presented to [facility] emergency center. He was afebrile, heart rate 87, blood pressure 130/82, pulse ox 96% on room air. CBC was unremarkable. Potassium 5.2, BUN 25 and creatinine 0.79, blood sugar 140. Alkaline phosphatase 331, CK 53, TSH 1.970. Lactic acid 2.1. Ammonia level less than 9. Troponin negative. Foot x-ray shows soft tissue swelling. No fracture. Patient admitted to the MedSurg floor. Patient was started on Unasyn and vancomycin. 12/04: Patient denies any new complaints today. He was scheduled for discharge to medical [place] but due to financial obligations with [facility], his choice of nursing homes is changed to [facility] [place]. Social work is following closely. He has been afebrile, heart rate 85, blood pressure 112/79, pulse ox 94%. Patient did utilize CPAP during the night. Vancomycin trough is 40 and repeat level ordered for tomorrow. Creatinine is 1.1. Local wound care to [place] [facility] Silvadene. Consult is in place with wound care team. Patient will be discharged to [facility] today if arrangements can be completed. REVIEW OF SYSTEMS Constitutional: No fever, no chills, no night sweats. No weight change. Reports weakness, reports fatigue. No daytime sleepiness. EENT: No headache. No blurred vision or double vision, no loss of vision. No loss of Hearing, no ringing in the ears, no dizziness. No nasal drainage or congestion. No epistaxis. No sore throat. Lungs: No shortness of breath, cough, no sputum production. No wheezing. Cardiovascular: No chest pain, no lower extremity edema. No palpitations. No paroxysmal nocturnal dyspnea. No orthopnea. No lightheadedness or dizziness. No syncopal episodes. Abdominal: No abdominal pain. No nausea, vomiting. No diarrhea. No constipation. No bloody or tarry stools.. No loss of appetite. Genitourinary: No dysuria, increased frequency, urgency. No urinary retention. Musculoskeletal: No myalgias. Reports muscle weakness, reports chronic gait dysfunction, no frequent falls. No back pain. No neck pain. Integumentary: Reports cellulitis/wounds. No rash or pruritus. No unusual bruising. No change in hair or nails. Neurologic: No aphasia. No facial droop. No change in mentation. No head injury. No headache. No paralysis. No paresthesia. Psychiatric: No depression. No anxiety. No mood swings. Endocrine: No abnormal blood sugars. PHYSICAL EXAMINATION Gen: This is a morbidly obese 50-year-old male. He is sitting up in bed and appears to be comfortable. No acute distress is noted. HEENT: Head is atraumatic, normocephalic. Pupils equal, round. Sclerae is anicteric. Oral mucous members are moist. NECK: Supple. No JVD. No lymphadenopathy. No thyromegaly. LUNGS: Clear to auscultation. No wheezes or rhonchi. No intercostal retractions. HEART: Regular rate and rhythm. No murmur. ABDOMEN: Soft. Bowel sounds are present. No masses. No tenderness. On catheter in place. EXTREMITIES: No pedal edema. No calf tenderness. Dorsalis pedis palpable bilaterally. Wounds noted to the bilateral lower extremity and left foot. NEUROLOGICAL: Patient is awake, alert and oriented x3. Speech is slow and deliberate, slightly slurred. Paralysis of the left upper and lower extremities. ASSESSMENT AND PLAN 1. Lactic acidosis, resolved. Continue IV fluids. Hold metformin. 2. Hyperkalemia secondary to dehydration, resolved. 3. Wounds to the lower extremities. Consult with wound care team. Patient currently has Silvadene wraps daily. 4. Astrocytoma status post right temporal craniotomy on 3 occasions post chemotherapy and radiation therapy. Oncologist is Dr. Martínez. Patient was unable to fit in the MRI machine on last admission. Oncology had scheduled outpatient MRI of the brain at open MRI machine. 5. 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 6. 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 Continue Keppra 750 mg twice daily. 7. Diabetes mellitus type 2. Continue Levemir 30 units daily, NovoLog 17 units twice daily with breakfast and lunch, 10 units with supper and NovoLog scale before meals and at bedtime, hold metformin 1000 mg twice daily. Patient is also on Ozempic at home. 8. Hypertension. Continue hydralazine 50 mg 3 times daily, valsartan 320 mg daily and Lasix 40 mg daily. 9. Hyperlipidemia. Continue Lipitor 80 mg at bedtime. 10. Chronic pain syndrome. Continue Voltaren gel topically 3 times daily as needed, Neurontin 800 mg 4 times daily. 11. Generalized anxiety disorder and recurrent depression. Continue Cymbalta 60 mg twice daily. 12. Active tobacco use and dependence. Patient started on nicotine patch daily 13. GI prophylaxis. Protonix. 14. DVT prophylaxis. Heparin subcu. DISCHARGE PLAN [facility] [place]. Impression and plan of care have been directed as dictated by the signing physician. Tona Nunes nurse practitioner acting as scribe for signing physician. Objective - Vital Signs Vital signs: Vital Signs Temp 98.0 F 12/04/20 08:00 Pulse 85 12/04/20 08:00 Resp 18 12/04/20 08:00 BP 112/79 12/04/20 08:00 Pulse Ox 94 L 12/04/20 08:00 Intake & Output 12/03/20 12/04/20 12/04/20 18:59 06:59 18:59 Output Total 1200 600 Balance -1200 -600 Output: Urine 1200 600 Straight 600 Other: Voiding Method External Catheter # Voids 1 - Labs CBC & Chem 7: 12/03/20 06:08 12/04/20 04:18 Labs: Abnormal Lab Results - Last 24 Hours (Table) 02/28/21 02/28/21 02/28/21 Range/Units 06:08 06:08 11:25 RBC 3.74 L (4.40-5.60) X 10*6/uL Hgb 12.5 L (13.0-17.0) g/dL Hct 38.4 L (39.6-50.0) % MCV 102.7 H (80.0-97.0) fL MCH 33.4 H (27.0-32.0) pg BUN/Creatinine Ratio 24.44 H (12.00-20.00) Ratio Glucose 155 H (70-110) mg/dL POC Glucose (mg/dL) 174 H (75-99) mg/dL Urine Protein (Negative) Ur Leukocyte Esterase (Negative) Urine RBC (0-5) /hpf Urine WBC (0-5) /hpf Urine Bacteria (None) /hpf Urine Mucus (None) /hpf Vancomycin Trough ug/mL 12/03/20 12/03/20 12/04/20 Range/Units 17:50 20:19 04:18 RBC (4.40-5.60) X 10*6/uL Hgb (13.0-17.0) g/dL Hct (39.6-50.0) % MCV (80.0-97.0) fL MCH (27.0-32.0) pg BUN/Creatinine Ratio (12.00-20.00) Ratio Glucose (70-110) mg/dL POC Glucose (mg/dL) 152 H (75-99) mg/dL Urine Protein Trace H (Negative) Ur Leukocyte Esterase Small H (Negative) Urine RBC 6 H (0-5) /hpf Urine WBC 11 H (0-5) /hpf Urine Bacteria Rare H (None) /hpf Urine Mucus Rare H (None) /hpf Vancomycin Trough 40.1 H* ug/mL 12/04/20 Range/Units 07:17 RBC (4.40-5.60) X 10*6/uL Hgb (13.0-17.0) g/dL Hct (39.6-50.0) % MCV (80.0-97.0) fL MCH (27.0-32.0) pg BUN/Creatinine Ratio (12.00-20.00) Ratio Glucose (70-110) mg/dL POC Glucose (mg/dL) 145 H (75-99) mg/dL Urine Protein (Negative) Ur Leukocyte Esterase (Negative) Urine RBC (0-5) /hpf Urine WBC (0-5) /hpf Urine Bacteria (None) /hpf Urine Mucus (None) /hpf Vancomycin Trough ug/mL Microbiology - Last 24 Hours (Table) 12/03/20 17:50 Urine Culture - Preliminary Urine,Clean Catch 12/02/20 18:53 Blood Culture - Preliminary Blood No Growth after 24 hours 12/02/20 16:25 Gram Stain - Preliminary Foot - Left Wound Culture - Preliminary
[2020-12-04 11:53] LABS: Glucose,Whole Blood 206 mg/dL (75-99)
[2020-12-04 17:05] LABS: Glucose,Whole Blood 250 mg/dL (75-99)
[2020-12-04 21:01] LABS: Glucose,Whole Blood 211 mg/dL (75-99)
[2020-12-04] MEDS: ATORVASTATIN 80 MG TAB PO SCH (21:09)
[2020-12-05 07:00] LABS: African American GFR (CKD) >90 (>60 ml/min/1.73 sqM); Non-African American GFR(CKD) >90 (>60 ml/min/1.73 sqM)
[2020-12-05 07:06] LABS: Vancomycin,Random 14.3 ug/mL
[2020-12-05 07:10] LABS: Glucose,Whole Blood 196 mg/dL (75-99)
[2020-12-05] MEDS: MELOXICAM 7.5 MG TAB PO SCH (07:31)
[2020-12-05] MEDS: INSULIN DETEMIR (LEVEMIR) 100 UNIT/ML SYR SQ SCH (07:31)
[2020-12-05] MEDS: oxyCODONE-APAP 7.5-325MG 1 EACH TAB PO SCH ×2 (07:31→12:07)
[2020-12-05] MEDS: INSULIN ASPART (NovoLOG) 100 UNIT/ML VIAL SQ SCH ×4 (07:31→12:07)
[2020-12-05] MEDS: DULoxetine HCL 60 MG CAPSULE.DR PO SCH (07:31)
[2020-12-05] MEDS: FUROSEMIDE 40 MG TAB PO SCH (07:31)
[2020-12-05] MEDS: GABAPENTIN 400 MG CAP PO SCH ×2 (07:32→12:07)
[2020-12-05] MEDS: levETIRAcetam 250 MG TAB PO SCH (07:32)
[2020-12-05] MEDS: VALSARTAN 160 MG TAB PO SCH (07:32)
[2020-12-05] MEDS: hydrALAZINE HCL 50 MG TAB PO SCH (07:32)
[2020-12-05] MEDS: FLUTICASONE 50MCG/SPRAY NASAL 16GM EA NOSTRIL SCH (07:33)
[2020-12-05] MEDS: DICLOFENAC SODIUM GEL 100 GM TUBE TOPICAL SCH (07:33)
[2020-12-05] MEDS: NICOTINE 14MG/24HR PATCH TRANSDERM SCH (07:33)
[2020-12-05 08:20] VITALS: RESP 16
[2020-12-05] MEDS ORDERED: VANCOMYCIN 2,000 MG in SODIUM CHLORIDE 0.9% 500 ML 500 ML IVPB SCH (09:00)
[2020-12-05 11:53] LABS: Glucose,Whole Blood 238 mg/dL (75-99)
[2020-12-05 16:05] VITALS: BP 109/74; PULSE 80; TEMP 98.4
== END 2020-12-05 17:31 | DRG 641 ==
LOC: EC 15:08 → 4SSUR 18:29
PROVIDERS: ADMIT Internal Medicine Geriatric Medicine; ATTEND Internal Medicine Geriatric Medicine
DX: E87.2 Acidosis (principal); C71.9 Malignant neoplasm of brain, unspecified; F33.9 Major depressive disorder, recurrent, unspecified; G81.94 Hemiplegia, unspecified affecting left nondominant side; N17.9 Acute kidney failure, unspecified; E86.0 Dehydration; E87.5 Hyperkalemia; E78.5 Hyperlipidemia, unspecified; Z92.21 Personal history of antineoplastic chemotherapy; Z92.3 Personal history of irradiation; E11.9 Type 2 diabetes mellitus without complications; F17.210 Nicotine dependence, cigarettes, uncomplicated; F41.1 Generalized anxiety disorder; G40.909 Epilepsy, unspecified, not intractable, without status epilepticus; G89.4 Chronic pain syndrome; I10 Essential (primary) hypertension; R62.7 Adult failure to thrive; Z79.1 Long term (current) use of non-steroidal anti-inflammatories (NSAID); Z79.4 Long term (current) use of insulin; Z79.899 Other long term (current) drug therapy; Z82.49 Family history of ischemic heart disease and other diseases of the circulatory system; Z83.3 Family history of diabetes mellitus; G47.33 Obstructive sleep apnea (adult) (pediatric); Z99.89 Dependence on other enabling machines and devices; S81.802A Unspecified open wound, left lower leg, initial encounter; S81.801A Unspecified open wound, right lower leg, initial encounter; Z79.891 Long term (current) use of opiate analgesic
CPT/HCPCS: 36415; 36600; 70450; 80048; 80053; 80202; 80306; 81001; 82140; 82550; 82565; 82805; 83605; 84443; 84484; 85025; 85610; 85730; 87040; 87070; 87077; 87086; 87186; 87205; 93005; 94660; 94760; 96365; 99285

== ENCOUNTER 2020-12-18 11:32 | Emergency (ER) | payer MEDICARE ==
--- NOTE | 2020-12-18 12:08 | ED ---
General Adult HPI - General Chief complaint: Recheck/Abnormal Lab/Rx Stated complaint: weakness Time Seen by Provider: 12/18/20 11:52 Source: patient, EMS, RN notes reviewed Mode of arrival: EMS Limitations: no limitations, physical limitation (left side hemiparesis) - History of Present Illness Initial comments: 50-year-old white male, Morbidly obese patient presents to the emergency room after complaining of weakness and told his potassium level may be low which has been the case in the past. Sent by Dr. Vo for evaluation. Patient denies nausea vomiting diarrhea, chest pain, fevers or cough. Patient states lives at home with family member and home health care. States He uses a motorized wheelchair to get around. Patient with left-sided hemiparesis from stroke in September 2015. Patient has ulcer to left medial side of great toe which is dry with the last dressing change noted to be 12/15, No signs and symptoms of infection or purulent drainage. MD Complaint: weakness Associated Symptoms: denies other symptoms Treatments Prior to Arrival: none - Related Data Home Medications Medication Instructions Recorded Confirmed Calcium Carbonate [Tums] 1,000 mg PO Q6H PRN 04/02/19 12/18/20 Celecoxib [CeleBREX] 200 mg PO DAILY 04/02/19 12/18/20 DULoxetine HCL [Cymbalta] 60 mg PO BID 04/02/19 12/18/20 hydrALAZINE HCL 50 mg PO TID 04/02/19 12/18/20 Aloe [place] Foam 1 applic TOPICAL DIRECTED 11/10/20 12/18/20 Diclofenac Sodium [Voltaren Gel] 1 gram TOPICAL TID 11/10/20 12/18/20 Furosemide [Lasix] 40 mg PO DAILY 11/10/20 12/18/20 INSULIN ASPART (NovoLOG) [NovoLOG 10 unit SQ AC-SUPPER 11/10/20 12/18/20 (formulary)] INSULIN ASPART (NovoLOG) [NovoLOG 17 unit SQ AC-BID@0800,1200 11/10/20 12/18/20 (formulary)] Insulin Glargine,Hum.rec.anlog 30 unit SQ DAILY 11/10/20 12/18/20 [Lantus Solostar] Lomustine [Gleostine] 360 mg PO Q42D 11/10/20 12/18/20 Ozempic 0.5mg/0.375ml 0.5 mg SQ MO 11/10/20 12/18/20 Valsartan 320 mg PO DAILY 11/10/20 12/18/20 levETIRAcetam [Keppra] 750 mg PO Q12HR 11/10/20 12/18/20 Atorvastatin Calcium [Lipitor] 80 mg PO HS 11/28/20 12/18/20 Previous Rx's Medication Instructions Recorded Gabapentin 800 mg PO QID #12 tab 12/03/20 Allergies Allergy/AdvReac Type Severity Reaction Status Date / Time pioglitazone [From Actos] Allergy Rash/Hives Verified 12/18/20 12:52 lisinopril AdvReac Cough Verified 12/18/20 12:52 Review of Systems ROS Statement: Those systems with pertinent positive or pertinent negative responses have been documented in the HPI. ROS Other: All systems not noted in ROS Statement are negative. Past Medical History Past Medical History: Cancer, Diabetes Mellitus, Hyperlipidemia, Hypertension, Neurologic Disorder, Seizure Disorder, Sleep Apnea/CPAP/BIPAP Additional Past Medical History / Comment(s): Astrocytoma status post right temporal craniotomy. left arm paralysis, left leg paralysis. 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 Lap band-removed 2013. Left leg fibia has rods and screws (July 17, 2020) Past Anesthesia/Blood Transfusion Reactions: No Reported Reaction, Unable to Obtain Past Psychological History: Anxiety, Depression Smoking Status: Current every day smoker Past Alcohol Use History: Occasional Past Drug Use History: None Reported - Past Family History Brother(s) Family Medical History: No Reported History Sister(s) Family Medical History: No Reported History Son(s) Family Medical History: No Reported History Mother History Unknown: Yes Family Medical History: No Reported History Father Family Medical History: Congestive Heart Failure (CHF), Diabetes Mellitus General Exam Limitations: no limitations General appearance: alert, in no apparent distress Head exam: Present: atraumatic, normocephalic, normal inspection Eye exam: Present: normal appearance, PERRL, EOMI. Absent: scleral icterus, conjunctival injection, periorbital swelling ENT exam: Present: other (dry cracked lips) Neck exam: Present: normal inspection, full ROM Respiratory exam: Present: normal lung sounds bilaterally. Absent: respiratory distress, wheezes, rales, rhonchi, stridor, chest wall tenderness Cardiovascular Exam: Present: regular rate, normal rhythm, normal heart sounds. Absent: systolic murmur, diastolic murmur, rubs, gallop, clicks GI/Abdominal exam: Present: soft (obese) Neurological exam: Present: alert, oriented X3, CN II-XII intact, other (left side hemiparesis since 2014) Psychiatric exam: Present: normal affect, normal mood Skin exam: Present: warm (ulcer to left foot, medial great toe, no purulence and no pain, dressing changed by home care last 12/15), dry, intact, normal color. Absent: rash Course Vital Signs 12/18/20 11:41 Temperature 98.4 F Pulse Rate 96 Respiratory 22 Rate Blood Pressure 129/94 O2 Sat by Pulse 100 Oximetry - Reevaluation(s) Reevaluation #1: 12/18/20 14:29 Spoke with patient advising him of potassium of 4.2. With dry mucous membranes patient is agreeable to receiving rehydration therapy. Medical Decision Making - Medical Decision Making Discussed case with Dr. Benitez, patient agreeable to receiving 500 mL bolus of 0.9 normal saline for rehydration and being d/c with follow up with primary care doctor. Patient without new weakness, headache, chest pain, or shortness of breath. Potassium level of 4.2, BUN of 31 creatinine 1.05 alk phos of 281. CBC unremarkable. EKG sinus rhythm. - Lab Data Result diagrams: 12/18/20 12:05 12/18/20 12:05 Lab Results 12/18/20 12/18/20 Range/Units 12:05 12:05 WBC 8.6 (3.8-10.6) k/uL RBC 4.33 (4.30-5.90) m/uL Hgb 14.3 (13.0-17.5) gm/dL Hct 43.4 (39.0-53.0) % MCV 100.0 (80.0-100.0) fL MCH 33.1 (25.0-35.0) pg MCHC 33.1 (31.0-37.0) g/dL RDW 13.2 (11.5-15.5) % Plt Count 225 (150-450) k/uL MPV 7.7 Neutrophils % 75 % Lymphocytes % 12 % Monocytes % 9 % Eosinophils % 2 % Basophils % 0 % Neutrophils # 6.4 (1.3-7.7) k/uL Lymphocytes # 1.1 (1.0-4.8) k/uL Monocytes # 0.8 (0-1.0) k/uL Eosinophils # 0.2 (0-0.7) k/uL Basophils # 0.0 (0-0.2) k/uL Sodium 139 (137-145) mmol/L Potassium 4.2 (3.5-5.1) mmol/L Chloride 101 (98-107) mmol/L Carbon Dioxide 29 (22-30) mmol/L Anion Gap 9 mmol/L BUN 31 H (9-20) mg/dL Creatinine 1.05 (0.66-1.25) mg/dL Est GFR (CKD-EPI)AfAm >90 (>60 ml/min/1.73 sqM) Est GFR (CKD-EPI)NonAf 84 (>60 ml/min/1.73 sqM) Glucose 118 H (74-99) mg/dL Calcium 10.0 (8.4-10.2) mg/dL Magnesium 1.7 (1.6-2.3) mg/dL Total Bilirubin 0.7 (0.2-1.3) mg/dL AST 44 (17-59) U/L ALT 38 (4-49) U/L Alkaline Phosphatase 281 H (38-126) U/L Total Protein 6.9 (6.3-8.2) g/dL Albumin 3.7 (3.5-5.0) g/dL - EKG Data EKG shows normal: sinus rhythm Disposition Clinical Impression: Dehydration symptoms, Weakness Disposition: HOME SELF-CARE Condition: Good Additional Instructions: Remember to increase your fluid intake and follow up with primary care doctor 1 week Is patient prescribed a controlled substance at d/c from ED?: No Referrals: Kathryn Vo MD [Primary Care Provider] - 1-2 days Time of Disposition: 14:32
[2020-12-18 12:32] LABS: Basophils % (A) 0 %; Eosinophils # (A) 0.2 k/uL (0-0.7); Eosinophils % (A) 2 %; HCT 43.4 % (39.0-53.0); HGB 14.3 gm/dL (13.0-17.5); Lymphocytes # (A) 1.1 k/uL (1.0-4.8); Lymphocytes % (A) 12 %; MCH 33.1 pg (25.0-35.0); MCHC 33.1 g/dL (31.0-37.0); Mean Platelet Volume 7.7; Monocytes # (A) 0.8 k/uL (0-1.0); Monocytes % (A) 9 %; Neutrophils # (A) 6.4 k/uL (1.3-7.7); Neutrophils % (A) 75 %; Platelet Count 225 k/uL (150-450); RBC 4.33 m/uL (4.30-5.90); RDW 13.2 % (11.5-15.5); WBC 8.6 k/uL (3.8-10.6)
[2020-12-18 12:36] LABS: ALT 38 U/L (4-49); AST 44 U/L (17-59); African American GFR (CKD) >90 (>60 ml/min/1.73 sqM); Albumin 3.7 g/dL (3.5-5.0); Alkaline Phosphatase 281 U/L (38-126); Anion Gap 9 mmol/L; Blood Urea Nitrogen 31 mg/dL (9-20); Carbon Dioxide 29 mmol/L (22-30); Chloride 101 mmol/L (98-107); Glucose 118 mg/dL (74-99); Magnesium 1.7 mg/dL (1.6-2.3); Non-African American GFR(CKD) 84 (>60 ml/min/1.73 sqM); Potassium 4.2 mmol/L (3.5-5.1); Sodium 139 mmol/L (137-145); Total Bilirubin 0.7 mg/dL (0.2-1.3); Total Protein 6.9 g/dL (6.3-8.2)
--- NOTE | 2020-12-18 12:54 | XR ---
EXAMINATION TYPE: XR chest 2V DATE OF EXAM: 12/18/2020 COMPARISON: 11/29/2020 TECHNIQUE: PA and lateral views submitted. HISTORY: Weakness FINDINGS: Bilateral patchy perihilar infiltrates with subsegmental basilar consolidation. Heart enlarged. Arthr opathy shoulders. No sizable pleural effusion or pneumothorax. IMPRESSION: 1. Cardiomegaly with patchy perihilar infiltrate similar to the prior exam.
[2020-12-18] MEDS ORDERED: SODIUM CHLORIDE 0.9% 500 ML 500 ML IV STA (13:51)
[2020-12-18 14:40] VITALS: RESP 20
[2020-12-18 16:31] VITALS: BP 155/89; PULSE 84; TEMP 97.8
== END 2020-12-18 16:32 | disposition home or self-care (01) ==
LOC: EC 11:32
DX: E86.0 Dehydration (principal); E11.9 Type 2 diabetes mellitus without complications; E66.01 Morbid (severe) obesity due to excess calories; E78.5 Hyperlipidemia, unspecified; F17.200 Nicotine dependence, unspecified, uncomplicated; F32.9 Major depressive disorder, single episode, unspecified; F41.9 Anxiety disorder, unspecified; I10 Essential (primary) hypertension; Z79.1 Long term (current) use of non-steroidal anti-inflammatories (NSAID); Z79.4 Long term (current) use of insulin
CPT/HCPCS: 36415; 71046; 80053; 83735; 85025; 93005; 99285

== ENCOUNTER 2020-12-19 11:05 | Inpatient (IN) | payer MEDICARE ==
[2020-12-19 11:11] LABS: Glucose,Whole Blood 151 mg/dL (75-99)
--- NOTE | 2020-12-19 11:49 | ED ---
General Adult HPI - General Chief complaint: Weakness Stated complaint: weakness Time Seen by Provider: 12/19/20 11:25 Source: patient, EMS, RN notes reviewed Mode of arrival: EMS Limitations: physical limitation - History of Present Illness Initial comments: Patient is a pleasant 50-year-old male presenting to the emergency Department with general weakness. Patient was in the emergency Department with similar symptoms. Patient went home and has been unable to get out of bed since that time. Patient does have a known left foot wound. Patient does have history of previous brain tumor with surgical excision and residual left-sided weakness. Patient does not feel confused. Patient weakness has progressed over the last month. Patient is unable to stand on his own. Patient is unable to be or use the restroom on his own. Patient was found covered with stool. - Related Data Home Medications Medication Instructions Recorded Confirmed Calcium Carbonate [Tums] 1,000 mg PO Q6H PRN 04/02/19 12/19/20 Celecoxib [CeleBREX] 200 mg PO DAILY 04/02/19 12/19/20 DULoxetine HCL [Cymbalta] 60 mg PO BID 04/02/19 12/19/20 hydrALAZINE HCL 50 mg PO TID 04/02/19 12/19/20 Aloe Ward Foam 1 applic TOPICAL DIRECTED 11/10/20 12/19/20 Diclofenac Sodium [Voltaren Gel] 1 gram TOPICAL TID 11/10/20 12/19/20 Furosemide [Lasix] 40 mg PO DAILY 11/10/20 12/19/20 INSULIN ASPART (NovoLOG) [NovoLOG 10 unit SQ AC-SUPPER 11/10/20 12/19/20 (formulary)] INSULIN ASPART (NovoLOG) [NovoLOG 17 unit SQ AC-BID@0800,1200 11/10/20 12/19/20 (formulary)] Insulin Glargine,Hum.rec.anlog 30 unit SQ DAILY 11/10/20 12/19/20 [Lantus Solostar] Lomustine [Gleostine] 360 mg PO Q42D 11/10/20 12/19/20 Ozempic 0.5mg/0.375ml 0.5 mg SQ MO 11/10/20 12/19/20 Valsartan 320 mg PO DAILY 11/10/20 12/19/20 levETIRAcetam [Keppra] 750 mg PO Q12HR 11/10/20 12/19/20 Atorvastatin Calcium [Lipitor] 80 mg PO HS 11/28/20 12/19/20 Previous Rx's Medication Instructions Recorded Gabapentin 800 mg PO QID #12 tab 12/03/20 Allergies Allergy/AdvReac Type Severity Reaction Status Date / Time pioglitazone [From Actos] Allergy Rash/Hives Verified 12/19/20 12:59 lisinopril AdvReac Cough Verified 12/19/20 12:59 Review of Systems ROS Statement: Those systems with pertinent positive or pertinent negative responses have been documented in the HPI. ROS Other: All systems not noted in ROS Statement are negative. Constitutional: Denies: fever Eyes: Denies: eye pain ENT: Denies: ear pain Respiratory: Denies: cough Cardiovascular: Denies: chest pain Endocrine: Reports: fatigue Gastrointestinal: Denies: abdominal pain Genitourinary: Denies: dysuria Musculoskeletal: Denies: back pain Skin: Denies: rash Neurological: Reports: as per HPI, weakness. Denies: headache Past Medical History Past Medical History: Cancer, Diabetes Mellitus, Hyperlipidemia, Hypertension, Neurologic Disorder, Seizure Disorder, Sleep Apnea/CPAP/BIPAP Additional Past Medical History / Comment(s): Astrocytoma status post right temporal craniotomy. left arm paralysis, left leg paralysis. 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 Lap band-removed 2013. Left leg fibia has rods and screws (July 17, 2020) Past Anesthesia/Blood Transfusion Reactions: No Reported Reaction, Unable to Obtain Past Psychological History: Anxiety, Depression Smoking Status: Current every day smoker Past Alcohol Use History: Occasional Past Drug Use History: None Reported - Past Family History Brother(s) Family Medical History: No Reported History Sister(s) Family Medical History: No Reported History Son(s) Family Medical History: No Reported History Mother History Unknown: Yes Family Medical History: No Reported History Father Family Medical History: Congestive Heart Failure (CHF), Diabetes Mellitus General Exam Limitations: physical limitation General appearance: in no apparent distress, obese, other (Drowsiness) Head exam: Present: atraumatic Eye exam: Present: normal appearance, PERRL, EOMI ENT exam: Present: normal oropharynx Neck exam: Present: normal inspection. Absent: tenderness, meningismus Respiratory exam: Present: normal lung sounds bilaterally Cardiovascular Exam: Present: regular rate, normal rhythm GI/Abdominal exam: Present: soft. Absent: tenderness Extremities exam: Present: other (Left lateral foot with 2 cm stage III ulcer with some purulent drainage.) Neurological exam: Present: oriented X3, other (Drowsy. Does follow commands and is oriented.) Expanded Motor strength exam: RUE: 5, LUE: 3, RLE: 5, LLE: 2/1 Eye Response: (3) open to voice Motor Response: (6) obeys commands Verbal Response: (5) oriented Psychiatric exam: Present: flat affect Skin exam: Present: other (Foot ulcer) Course Vital Signs 12/19/20 12/19/20 11:07 14:00 Temperature 98.0 F 98.0 F Pulse Rate 97 84 Respiratory 18 18 Rate Blood Pressure 152/98 146/84 O2 Sat by Pulse 98 98 Oximetry EKG Findings - EKG Comments: EKG Findings:: Sinus tachycardia 102. LA 180. QRS 92. QT 354. QTC 461. Normal axis. Normal QRS. No acute ST change. Medical Decision Making - Medical Decision Making Patient reevaluated and updated. Patient does have osteomyelitis and will require IV antibiotics. Questionable changes with computed tomography scan of the brain. Neurology will need to be consult. Case was discussed with Dr. Glaser in detail, who will admit covering for Dr. Vo and agrees with plan. - Lab Data Result diagrams: 12/19/20 13:55 12/19/20 14:01 Lab Results 12/19/20 12/19/20 12/19/20 Range/Units 11:10 13:55 13:55 WBC 9.3 (3.8-10.6) k/uL RBC 3.90 L (4.30-5.90) m/uL Hgb 13.0 (13.0-17.5) gm/dL Hct 39.8 (39.0-53.0) % MCV 102.0 H (80.0-100.0) fL MCH 33.3 (25.0-35.0) pg MCHC 32.6 (31.0-37.0) g/dL RDW 12.7 (11.5-15.5) % Plt Count 191 (150-450) k/uL MPV 7.1 Neutrophils % 74 % Lymphocytes % 13 % Monocytes % 9 % Eosinophils % 2 % Basophils % 0 % Neutrophils # 6.9 (1.3-7.7) k/uL Lymphocytes # 1.3 (1.0-4.8) k/uL Monocytes # 0.8 (0-1.0) k/uL Eosinophils # 0.2 (0-0.7) k/uL Basophils # 0.0 (0-0.2) k/uL PT (9.0-12.0) sec INR (<1.2) Sodium (137-145) mmol/L Potassium (3.5-5.1) mmol/L Chloride (98-107) mmol/L Carbon Dioxide (22-30) mmol/L Anion Gap mmol/L BUN (9-20) mg/dL Creatinine (0.66-1.25) mg/dL Est GFR (CKD-EPI)AfAm (>60 ml/min/1.73 sqM) Est GFR (CKD-EPI)NonAf (>60 ml/min/1.73 sqM) Glucose (74-99) mg/dL POC Glucose (mg/dL) 151 H (75-99) mg/dL POC Glu Medical Biller Donna Chirinos Plasma Lactic Acid Hernando 1.6 (0.7-2.0) mmol/L Calcium (8.4-10.2) mg/dL Magnesium (1.6-2.3) mg/dL Total Bilirubin (0.2-1.3) mg/dL AST (17-59) U/L ALT (4-49) U/L Alkaline Phosphatase (38-126) U/L Creatine Kinase (55-170) U/L Total Protein (6.3-8.2) g/dL Albumin (3.5-5.0) g/dL Coronavirus (PCR) (Not Detectd) 12/19/20 12/19/20 12/19/20 Range/Units 14:01 14:01 14:01 WBC (3.8-10.6) k/uL RBC (4.30-5.90) m/uL Hgb (13.0-17.5) gm/dL Hct (39.0-53.0) % MCV (80.0-100.0) fL MCH (25.0-35.0) pg MCHC (31.0-37.0) g/dL RDW (11.5-15.5) % Plt Count (150-450) k/uL MPV Neutrophils % % Lymphocytes % % Monocytes % % Eosinophils % % Basophils % % Neutrophils # (1.3-7.7) k/uL Lymphocytes # (1.0-4.8) k/uL Monocytes # (0-1.0) k/uL Eosinophils # (0-0.7) k/uL Basophils # (0-0.2) k/uL PT 10.5 (9.0-12.0) sec INR 1.0 (<1.2) Sodium 138 (137-145) mmol/L Potassium 4.5 (3.5-5.1) mmol/L Chloride 101 (98-107) mmol/L Carbon Dioxide 28 (22-30) mmol/L Anion Gap 9 mmol/L BUN 26 H (9-20) mg/dL Creatinine 0.86 (0.66-1.25) mg/dL Est GFR (CKD-EPI)AfAm >90 (>60 ml/min/1.73 sqM) Est GFR (CKD-EPI)NonAf >90 (>60 ml/min/1.73 sqM) Glucose 154 H (74-99) mg/dL POC Glucose (mg/dL) (75-99) mg/dL POC Glu Medical Biller ID Plasma Lactic Acid Hernando (0.7-2.0) mmol/L Calcium 10.0 (8.4-10.2) mg/dL Magnesium 1.6 (1.6-2.3) mg/dL Total Bilirubin 0.8 (0.2-1.3) mg/dL AST 47 (17-59) U/L ALT 29 (4-49) U/L Alkaline Phosphatase 271 H (38-126) U/L Creatine Kinase 680 H (55-170) U/L Total Protein 6.9 (6.3-8.2) g/dL Albumin 3.7 (3.5-5.0) g/dL Coronavirus (PCR) Not Detected (Not Detectd) - Radiology Data Radiology results: report reviewed (Computed tomography scan previous right frontal temporal craniotomy flap. Septal malacia. Likely streak artifact punctate density right temporal lobe. Needs follow-up.), image reviewed (Chest x-ray shows cardiomegaly. Coarse interstitial: Correlate for interstitial lung disease or pneumonitis. Left foot x-ray shows soft tissue swelling and suspected ulceration with findings suspicious for early oh osteomyelitis head of fifth metatarsal) Disposition Clinical Impression: Osteomyelitis of left foot, Weakness Disposition: ADMITTED IP TO THIS HOSP Is patient prescribed a controlled substance at d/c from ED?: No Referrals: Kathryn Vo MD [Primary Care Provider] - 1-2 days Decision Time: 14:55
--- NOTE | 2020-12-19 12:50 | XR ---
EXAMINATION TYPE: XR chest 2V DATE OF EXAM: 12/19/2020 COMPARISON: 12/18/2020 TECHNIQUE: PA and lateral views submitted. HISTORY: Weakness FINDINGS: The lungs are clear and there is no pneumothorax, pleural effusion, or focal pneumonia. Heart enlarg ed and there is a coarsened interstitial pattern. Arthropathy of the shoulders. Generative change of the spine. IMPRESSION: 1. Cardiomegaly with coarsened interstitium correlate for chronic interstitial lung disease or inters titial pneumonitis.
--- NOTE | 2020-12-19 12:51 | CT ---
EXAMINATION TYPE: CT brain wo con DATE OF EXAM: 12/19/2020 COMPARISON: 12/02/2020, 04/14/2019 HISTORY: 50-year-old male generalized weakness TECHNIQUE: Examination was done in axial plane without intravenous contrast. Coronal and sagittal r econstructions performed. CT DLP: 1099.4 mGycm Automated exposure control for dose reduction was used. FINDINGS: Redemonstrated are right frontotemporal craniotomy flap. Underlying resection cavity within the right temporal lobe is unchanged. Marked enlargement of the right lateral ventricle from ex vacuo dilatation appears unchanged. Extensi ve white matter hypodensities within the right cerebral hemisphere are unchanged. Subtle high density foci in the region of the temporal lobe likely reflect streak artifact rather adriana n tiny foci of blood, for example, refer to axial images 20, 21, 24. Subtle hypodensity within the right midbrain and ping and right basal ganglia/thalamus. No midline shift or herniation. Paranasal sinuses and mastoid air cells are well pneumatized. Orbits and globes are intact. IMPRESSION: 1. Consider MRI without and with contrast given subtle hypodensity in the right basal ganglia and rig ht thalamus and within the right midbrain and ping, possible subacute or chronic ischemic change. 2. Previous right frontotemporal craniotomy flap with extensive encephalomalacia right cerebral hemis phere and marked ex vacuo enlargement of the right lateral ventricle. Previous resection cavity in th e right middle cranial fossa. 3. Tiny punctate densities in the right temporal lobe suspect represents streak artifact rather than punctate foci of hemorrhage. Short interval follow-up recommended to reassess.
--- NOTE | 2020-12-19 12:52 | XR ---
EXAMINATION TYPE: XR foot complete LT DATE OF EXAM: 12/19/2020 COMPARISON: NONE HISTORY: Soft tissue infection and wound adjacent to the fifth digit TECHNIQUE: Three views are submitted. FINDINGS: There is soft tissue edema with diffuse osteopenia. Postsurgical change involving the tibia. Calcanea l spurs are noted there is marked hypertrophic change involving the dorsal surface of the tarsal bone s. There is a soft tissue ulceration or wound lateral to the fifth MCP joint. There is suggestion of subtle erosion of the cortex of the head of the fifth MCP suspicious for osteomyelitis. No obvious ac [place] graham fracture. Arthropathy of the tarsal joints, tarsal metatarsal joints as well as the first MTP russ nt noted. IMPRESSION: 1. Soft tissue edema and suspected ulceration adjacent to the fifth digit with findings suspicious fo r early osteomyelitis involving the head of the fifth metatarsal.
[2020-12-19 14:18] LABS: Basophils % (A) 0 %; Eosinophils # (A) 0.2 k/uL (0-0.7); Eosinophils % (A) 2 %; HCT 39.8 % (39.0-53.0); Lymphocytes # (A) 1.3 k/uL (1.0-4.8); Lymphocytes % (A) 13 %; MCH 33.3 pg (25.0-35.0); MCHC 32.6 g/dL (31.0-37.0); Mean Platelet Volume 7.1; Monocytes # (A) 0.8 k/uL (0-1.0); Monocytes % (A) 9 %; Neutrophils # (A) 6.9 k/uL (1.3-7.7); Neutrophils % (A) 74 %; Platelet Count 191 k/uL (150-450); RDW 12.7 % (11.5-15.5); WBC 9.3 k/uL (3.8-10.6)
[2020-12-19 14:29] LABS: ALT 29 U/L (4-49); AST 47 U/L (17-59); African American GFR (CKD) >90 (>60 ml/min/1.73 sqM); Albumin 3.7 g/dL (3.5-5.0); Alkaline Phosphatase 271 U/L (38-126); Anion Gap 9 mmol/L; Blood Urea Nitrogen 26 mg/dL (9-20); Carbon Dioxide 28 mmol/L (22-30); Chloride 101 mmol/L (98-107); Creatine Kinase 680 U/L (55-170); Glucose 154 mg/dL (74-99); Magnesium 1.6 mg/dL (1.6-2.3); Non-African American GFR(CKD) >90 (>60 ml/min/1.73 sqM); Potassium 4.5 mmol/L (3.5-5.1); Sodium 138 mmol/L (137-145); Total Bilirubin 0.8 mg/dL (0.2-1.3); Total Protein 6.9 g/dL (6.3-8.2)
[2020-12-19 14:30] LABS: Prothrombin Time 10.5 sec (9.0-12.0)
[2020-12-19] MEDS ORDERED: PIPERACILLIN-TAZOBACTAM 3.375 GM in SODIUM CHLORIDE 0.9% 100 ML IVPB STA (14:55)
[2020-12-19] MEDS ORDERED: VANCOMYCIN IV PER PHARMACY 1 EACH MISC MISCELLANE PRN (14:56)
[2020-12-19] MEDS ORDERED: NALOXONE 0.4 MG/ML 1 ML VIAL IV PRN (14:58)
[2020-12-19] MEDS ORDERED: VANCOMYCIN 2,000 MG in SODIUM CHLORIDE 0.9% 500 ML 500 ML IVPB STA (15:03)
[2020-12-19] MEDS ORDERED: CALCIUM CARBONATE 500 MG CHEWABLE PO PRN (15:50)
[2020-12-19] MEDS: SODIUM CHLORIDE 0.9% 1,000 ML IV SCH (15:56)
[2020-12-19] MEDS ORDERED: [UNRECOGNIZED DRUG - OTHER] PO SCH (16:00)
--- NOTE | 2020-12-19 17:21 | P.HPIM ---
History of Present Illness H&P Date: 12/19/20 Chief Complaint: Weakness This is a 50-year-old male patient of Dr. Vo with a past medical history of astrocytoma status post right temporal craniotomy along with chemotherapy and radiation with chronic left-sided paralysis, history of craniotomies and resections in 2016 and 2018, history of diabetes type 2, hypertension, hyperlipidemia, and is obstructive sleep apnea on BiPAP. Patient had a recent hospitalization in November due to weakness and was admitted and treated for lactic acidosis, acute kidney injury, and hyperkalemia. Patient was discharged to [facility] for a few weeks for rehab and eventually returned home. Patient does have a chronic ulcer to the left lateral foot that was being treated with topical wound care by his home care aids. Patient developed worsening weakness and presented to the emergency department yesterday. He was treated for dehydration, and discharged home. Patient become more weak while at home and was able to get out of bed. He returned to the emergency department. CT of the brain was done and showed subtle hypodensity in the right basal ganglia and right thalamus and within the right midbrain and ping, possible subacute or chronic ischemic changes. Left foot x-ray showed soft tissue edema and suspected ulceration to the fifth digit with findings suspicious for early osteomyelitis involving the head of the fifth metatarsal. He is afebrile, temp of 98, heart rate of 84, respiratory rate of 18, blood pressure 146/84, he is 98% on room air. CBC was unremarkable, BUN 26, creatinine 0.86, sodium 138, p otassium 4.5, heart size to 71, creatinine kinase 680, TSH 2.33, COVID not detected. He was started on vancomycin along with Unasyn. Will plan for midline placement. Infectious disease consulted along with neurology for his increased weakness. Review of Systems Constitutional: Reports chronic pain, Reports fatigue, Reports malaise, Reports weakness, Denies chills, Denies fever Ears: deny: decreased hearing, earache Ears, nose, mouth and throat: Denies epistaxis, Denies headache, Denies nasal congestion, Denies nasal discharge, Denies neck fullness/pressure, Denies sinus pressure, Denies sore throat Cardiovascular: Reports leg edema, Denies chest pain, Denies dyspnea on exer tion, Denies irregular heart beat, Denies orthopnea, Denies palpitations, Denies shortness of breath, Denies syncope Respiratory: Denies congestion, Denies cough, Denies dyspnea, Denies hemoptysis, Denies pain, Denies pain on inspiration, Denies snoring, Denies wheezing Gastrointestinal: Denies constipation, Denies diarrhea, Denies dyspepsia, Denies excessive gas, Denies indigestion, Denies nausea, Denies vomiting Genitourinary: Denies discharge, Denies hematuria, Denies urinary frequency, Denies urinary hesitancy, Denies urinary retention Musculoskeletal: Reports gait dysfunction, Reports muscle weakness, Denies fractures, Denies neck pain, Denies neck stiffness Integumentary: Reports foot/leg ulcers, Reports lesions, Reports sores, Reports wounds, Denies growths, Denies pruritus, Denies rash Neurological: Reports gait dysfunction, Reports motor disturbance, Denies change in smell/taste, Denies change in speech, Denies confusion, Denies headaches, Denies memory loss, Denies seizures, Denies syncope Psychiatric: Denies anxiety, Denies confusion, Denies depression, Denies disorientation, Denies mood swings Endocrine: Denies high blood sugars, Denies palpitations, Denies polydipsia Past Medical History Past Medical History: Cancer, Diabetes Mellitus, Hyperlipidemia, Hypertension, Neurologic Disorder, Seizure Disorder, Sleep Apnea/CPAP/BIPAP Additional Past Medical History / Comment(s): Astrocytoma status post right temporal craniotomy. left arm paralysis, left leg paralysis. 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 Lap band-removed 2013. Left leg fibia has rods and screws (July 17, 2020) Past Anesthesia/Blood Transfusion Reactions: No Reported Reaction, Unable to Obtain Past Psychological History: Anxiety, Depression Smoking Status: Current every day smoker Past Alcohol Use History: Occasional Past Drug Use History: None Reported - Past Family History Brother(s) Family Medical History: No Reported History Sister(s) Family Medical History: No Reported History Son(s) Family Medical History: No Reported History Mother History Unknown: Yes Family Medical History: No Reported History Father Family Medical History: Congestive Heart Failure (CHF), Diabetes Mellitus Medications and Allergies Home Medications Medication Instructions Recorded Confirmed Type Calcium Carbonate [Tums] 1,000 mg PO Q6H PRN 04/02/19 12/19/20 History Celecoxib [CeleBREX] 200 mg PO DAILY 04/02/19 12/19/20 History DULoxetine HCL [Cymbalta] 60 mg PO BID 04/02/19 12/19/20 History hydrALAZINE HCL 50 mg PO TID 04/02/19 12/19/20 History Aloe Jerome Foam 1 applic TOPICAL DIRECTED 11/10/20 12/19/20 History Diclofenac Sodium [Voltaren Gel] 1 gram TOPICAL TID 11/10/20 12/19/20 History Furosemide [Lasix] 40 mg PO DAILY 11/10/20 12/19/20 History INSULIN ASPART (NovoLOG) [NovoLOG 10 unit SQ AC-SUPPER 11/10/20 12/19/20 History (formulary)] INSULIN ASPART (NovoLOG) [NovoLOG 17 unit SQ AC-BID@0800,1200 11/10/20 12/19/20 History (formulary)] Insulin Glargine,Hum.rec.anlog 30 unit SQ DAILY 11/10/20 12/19/20 History [Lantus Solostar] Lomustine [Gleostine] 360 mg PO Q42D 11/10/20 12/19/20 History Ozempic 0.5mg/0.375ml 0.5 mg SQ MO 11/10/20 12/19/20 History Valsartan 320 mg PO DAILY 11/10/20 12/19/20 History levETIRAcetam [Keppra] 750 mg PO Q12HR 11/10/20 12/19/20 History Atorvastatin Calcium [Lipitor] 80 mg PO HS 11/28/20 12/19/20 History Gabapentin 800 mg PO QID #12 tab 12/03/20 12/19/20 Rx Allergies Allergy/AdvReac Type Severity Reaction Status Date / Time pioglitazone [From Actos] Allergy Rash/Hives Verified 12/19/20 12:59 lisinopril AdvReac Cough Verified 12/19/20 12:59 Physical Exam Vitals: Vital Signs Temp Pulse Resp BP Pulse Ox 12/19/20 14:00 98.0 F 84 18 146/84 98 03/16/21 11:07 98.0 F 97 18 152/98 98 Intake and Output 12/19/20 12/19/20 12/19/20 06:59 14:59 22:59 Other: Weight 180.076 kg - Constitutional General appearance: obese - EENT Eyes: EOMI, PERRLA, normal appearance ENT: no hard of hearing, hearing grossly normal, normal oropharynx, no pharyngeal erythema - Neck Neck: no lymphadenopathy, normal ROM, no rigidity, no stridor, no thyromegaly - Respiratory Respiratory: bilateral: CTA, negative: diminished, dullness, rales, rhonchi, wheezing - Cardiovascular Rhythm: regular Heart sounds: normal: S1, S2 - Gastrointestinal General gastrointestinal: no distended, no hepatomegaly, no organomegaly, soft, no tenderness - Integumentary Approximately 2 cm stage III ulcer to left lateral foot with purulent drainage Integumentary: cellulitis, normal, no pale, no rash, ulcer - Neurologic Neurologic: CNII-XII intact - Musculoskeletal Musculoskeletal: generalized weakness - Psychiatric Psychiatric: A&O x's 3, appropriate affect Results CBC & Chem 7: 12/19/20 13:55 12/19/20 14:01 Labs: Abnormal Lab Results - Last 24 Hours (Table) 12/19/20 12/19/20 12/19/20 Range/Units 11:10 13:55 14:01 RBC 3.90 L (4.30-5.90) m/uL MCV 102.0 H (80.0-100.0) fL BUN 26 H (9-20) mg/dL Glucose 154 H (74-99) mg/dL POC Glucose (mg/dL) 151 H (75-99) mg/dL Alkaline Phosphatase 271 H (38-126) U/L Creatine Kinase 680 H (55-170) U/L Assessment and Plan Plan: 1. Osteomyelitis of the left lateral foot. Will obtain blood cultures, consult with infectious disease, started on vancomycin along with Unasyn, continue with wound care 2. Astrocytoma status post right temporal craniotomy post chemotherapy and radiation with worsening weakness. Consult to neurology to review CT results, patient was supposedly scheduled for open MRI with his oncologist as outpatient last visit, unsure if this was completed or not 3. 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 4. 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 Will continue Keppra 750 mg twice daily 5. Diabetes mellitus type 2. Continue Levemir 30 units daily along with NovoLog 17 units twice a day with breakfast and lunch, 10 units with supper and NovoLog sliding scale before meals and at bedtime, at home is on Ozempic, will be due on Friday 6. Hypertension. Continue Lasix 40 mg daily, valsartan 320 mg daily and hydralazine 50 mg 3 times a day 7. Hyperlipidemia. Lipitor 80 mg daily at bedtime. 8. Chronic pain syndrome. On Voltaren gel along with Neurontin 800 mg 4 times a day and meloxicam 7.5 mg daily 9. Generalized anxiety and depression. Continue Cymbalta 60 mg twice daily 10. GI prophylaxis. Pantoprazole 11. DVT prophylaxis subcu heparin The above impression and plan of care have been discussed and directed by signing physician. Aisha Peters nurse practitioner acting as scribe for signing physician.
[2020-12-19 17:49] LABS: Glucose,Whole Blood 137 mg/dL (75-99)
[2020-12-19] MEDS: GABAPENTIN 400 MG CAP PO SCH ×2 (17:50→21:40)
[2020-12-19] MEDS: hydrALAZINE HCL 50 MG TAB PO SCH (17:51)
[2020-12-19] MEDS: PANTOPRAZOLE 40 MG TABLET PO SCH (17:51)
[2020-12-19] MEDS: INSULIN ASPART (NovoLOG) 100 UNIT/ML VIAL SQ SCH (17:51)
[2020-12-19] MEDS: DICLOFENAC SODIUM GEL 100 GM TUBE TOPICAL SCH (20:39)
[2020-12-19] MEDS: DULoxetine HCL 60 MG CAPSULE.DR PO SCH (21:40)
[2020-12-19] MEDS: ATORVASTATIN 80 MG TAB PO SCH (21:41)
[2020-12-19 21:52] LABS: Glucose,Whole Blood 146 mg/dL (75-99)
[2020-12-20] MEDS: PIPERACILLIN-TAZOBACTAM 3.375 GM in SODIUM CHLORIDE 0.9% 100 ML IVPB SCH ×4 (00:22→23:29)
[2020-12-20] MEDS: hydrALAZINE HCL 50 MG TAB PO SCH ×4 (01:42→21:53)
[2020-12-20] MEDS: DICLOFENAC SODIUM GEL 100 GM TUBE TOPICAL SCH ×3 (01:42→21:53)
[2020-12-20] MEDS: VANCOMYCIN 2,000 MG in SODIUM CHLORIDE 0.9% 500 ML 500 ML IVPB SCH ×2 (04:44→17:07)
[2020-12-20] MEDS: SODIUM CHLORIDE 0.9% 1,000 ML IV SCH ×2 (06:17→17:09)
[2020-12-20 07:02] LABS: Glucose,Whole Blood 120 mg/dL (75-99)
[2020-12-20 09:13] LABS: HCT 38.3 % (39.6-50.0); HGB 12.3 g/dL (13.0-17.0); MCH 33.1 pg (27.0-32.0); MCHC 32.1 g/dL (32.0-37.0); Mean Platelet Volume 9.7 fL (9.5-12.2); Platelet Count 184 X 10*3/uL (140-440); RBC 3.72 X 10*6/uL (4.40-5.60); RDW 12.8 % (11.5-14.5); WBC 6.92 X 10*3/uL (4.50-10.00)
[2020-12-20 09:14] LABS: African American GFR (CKD) 115.8 (60.0-200.0); Albumin 3.4 g/dL (3.80-4.90); Albumin/Globulin Ratio 1.55 (1.60-3.17); Anion Gap 7.8 mmol/L (4.00-12.00); BUN/Creat Ratio 21.11 Ratio (12.00-20.00); Carbon Dioxide 27.2 mmol/L (21.6-31.8); Globulin 2.2 g/dL (1.6-3.3); Non-African American GFR(CKD) 99.9 (60.0-200.0); Potassium 4.5 mmol/L (3.5-5.5); Total Bilirubin 0.5 mg/dL (0.2-1.2); Total Protein 5.6 g/dL (6.2-8.2)
[2020-12-20] MEDS: INSULIN DETEMIR (LEVEMIR) 100 UNIT/ML SYR SQ SCH (09:48)
[2020-12-20] MEDS: PANTOPRAZOLE 40 MG TABLET PO SCH ×2 (09:49→17:08)
[2020-12-20] MEDS: VALSARTAN 160 MG TAB PO SCH (09:49)
[2020-12-20] MEDS: FUROSEMIDE 40 MG TAB PO SCH (09:49)
[2020-12-20] MEDS: GABAPENTIN 400 MG CAP PO SCH ×4 (09:49→21:53)
[2020-12-20] MEDS: DULoxetine HCL 60 MG CAPSULE.DR PO SCH ×2 (09:49→21:53)
[2020-12-20] MEDS: MELOXICAM 7.5 MG TAB PO SCH (09:50)
--- NOTE | 2020-12-20 09:54 | P.CNNES ---
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 Patient does have a known left foot wounds. It is noted that the patient was found covered with stool. Patient stated that he does not have any new focal deficits or sensory loss or difficulty getting his words out that is new or any visual disturbance. He feels was a generalized weakness. He stated as a result of his intracranial astrocytoma with multiple resection he had residual left hemiplegia as well as left homonymous hemianopsia. He denies being on aspirin or any other antiplatelets is on the high dose Lipitor 80 mg daily. He stated that the he uses a power wheelchair and the resides with his nephew (his half- brother eldest son) as well as he has a caregiver givers that help him out. He stated in the past used to follow-up with Dr. Blair for his neurological care over at [facility] in the past but currently following-up with Dr. Flores and was last seen about a year ago. He also follows up with an oncologist. He said that he has an open MRI of the brain scheduled this Friday that was ordered by his Oncologist. Regarding the patient's seizure he is on Keppra 750 minute gram one tablet twice a day and he cannot tell me if was decreased or not. He said his last seizure was more than a year ago in which she has a staring off episode then has generalized tonic clonic seizure and he did not have any dose. With his seizure he does not have any urinary bowel incontinence or tongue bite to his recollection. He is on gabapentin 800 mg 1 tablet 4 times a day at. Cymbalta 60 mg without twice a day. Lipitor 80 mg daily at bedtime. Of note the patient stated that he had left hemiplegia after surgical section and he stated that the surgeon went to deep and a result it caused him to have left hemiplegia. Workup in the hospital as consisted of: Initial vital signs: Blood pressure of 152/90, heart rate of 97, respiratory of 18, temperature of 98.0 Fahrenheit oral and pulse ox of 98% room air. CT of the head is reported as consider MRI with and without contrast given the septal hypodensity in the right basal ganglia and the right thalamus and within the right midbrain and ping, possible subacute or chronic ischemic changes. Previous right frontal temporal craniotomy flap with extensive encephalomalacia right cerebral hemisphere and marked ex vacuo enlargement of the right lateral ventricle. Previous resection cavity in the right middle cranial fossa. Tiny punctate densities in the right temporal lobe suspected that represent streak artifact rather than punctate foci of hemorrhage. Short interval follow-up recommended to reassess Left foot x-ray was reported as soft tissue edema and suspected ulceration adjacent to the fifth digit with finding suspicious for early osteomyelitis involving the head of the fifth metatarsal White blood cells 9.3 which is normal. MCV is 102 which is just slightly high. Initial POC glucose is 151. Of note the patient was evaluated by the neuro hospitalist last seen in our facility consultation on 03/25/2019 for breakthrough seizure and was evaluated by Dr. Marcus Bess. Was recommended for the patient to be on Keppra for at least 1 g twice a day maintenance. The neurological notes it is stated that the patient had the low dose Keppra and his body for his weight. Also there is hypoattenuation on the CT of the head, age undetermined. At that time MRI of the brain was recommended. Was recommended for the patient to be on aspirin as well as statin. Please a refer to the previous neurology note for further details. Looks like the patient had the previous EEGs in our facility and there are abnormal but no epileptiform discharges or seizure on the EEG. Review of Systems Review of system: The 12 point system was reviewed and apparent positive and negative per HPI. Past Medical History Past Medical History: Cancer, Diabetes Mellitus, Hyperlipidemia, Hypertension, Neurologic Disorder, Seizure Disorder, Sleep Apnea/CPAP/BIPAP Additional Past Medical History / Comment(s): Astrocytoma status post right temporal craniotomy. left arm paralysis, left leg paralysis. 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 Lap band-removed 2013. Left leg fibia has rods and screws (July 17, 2020) Past Anesthesia/Blood Transfusion Reactions: No Reported Reaction, Unable to Obtain Past Psychological History: Anxiety, Depression Smoking Status: Current every day smoker Past Alcohol Use History: Occasional Past Drug Use History: None Reported - Past Family History Brother(s) Family Medical History: No Reported History Sister(s) Family Medical History: No Reported History Son(s) Family Medical History: No Reported History Mother History Unknown: Yes Family Medical History: No Reported History Father Family Medical History: Congestive Heart Failure (CHF), Diabetes Mellitus Medications and Allergies Home Medications Medication Instructions Recorded Confirmed Type Calcium Carbonate [Tums] 1,000 mg PO Q6H PRN 04/02/19 12/19/20 History Celecoxib [CeleBREX] 200 mg PO DAILY 04/02/19 12/19/20 History DULoxetine HCL [Cymbalta] 60 mg PO BID 04/02/19 12/19/20 History hydrALAZINE HCL 50 mg PO TID 04/02/19 12/19/20 History Aloe [place] Foam 1 applic TOPICAL DIRECTED 11/10/20 12/19/20 History Diclofenac Sodium [Voltaren Gel] 1 gram TOPICAL TID 11/10/20 12/19/20 History Furosemide [Lasix] 40 mg PO DAILY 11/10/20 12/19/20 History INSULIN ASPART (NovoLOG) [NovoLOG 10 unit SQ AC-SUPPER 11/10/20 12/19/20 History (formulary)] INSULIN ASPART (NovoLOG) [NovoLOG 17 unit SQ AC-BID@0800,1200 11/10/20 12/19/20 History (formulary)] Insulin Glargine,Hum.rec.anlog 30 unit SQ DAILY 11/10/20 12/19/20 History [Lantus Solostar] Lomustine [Gleostine] 360 mg PO Q42D 11/10/20 12/19/20 History Ozempic 0.5mg/0.375ml 0.5 mg SQ MO 11/10/20 12/19/20 History Valsartan 320 mg PO DAILY 11/10/20 12/19/20 History levETIRAcetam [Keppra] 750 mg PO Q12HR 02/05/21 03/16/21 History Atorvastatin Calcium [Lipitor] 80 mg PO HS 11/28/20 12/19/20 History Gabapentin 800 mg PO QID #12 tab 12/03/20 12/19/20 Rx Allergies Allergy/AdvReac Type Severity Reaction Status Date / Time pioglitazone [From Actos] Allergy Rash/Hives Verified 12/19/20 12:59 lisinopril AdvReac Cough Verified 12/19/20 12:59 Physical Examination - Vital Signs Vital Signs: Vital Signs Temp Pulse Resp BP Pulse Ox 12/19/20 14:00 98.0 F 84 18 146/84 98 12/19/20 11:07 98.0 F 97 18 152/98 98 Intake and Output 12/19/20 12/19/20 12/19/20 06:59 14:59 22:59 Other: Weight 180.076 kg GENERAL: The patient is morbid obese, lying in bed and is not in acute distress. CHEST: The heart rate is regular rate rhythm. No murmurs to auscultation. LUNG: Clear to auscultation bilaterally no wheezing noted throughout. Not labored breathing. ABDOMEN/GI: Bowel sounds present in all 4 quadrants. No tenderness to palpation throughout. NEUROLOGICAL: Higher mental function: The patient is awake, alert, oriented to self, place and time. Patient is following commands. No aphasia and no neglect. Cranial nerves: The pupils are round, equal and reactive to light and accommodation. Visual caldwell left homonymous hemianopsia (old). Extraocular movement is intact no nystagmus is noted. Facial sensation is normal to touch throughout. The facial strength is mild left lower facial droop (old per patient). . Hearing is normal bilaterally to hand rub. Tongue is midline and moved [id number] without any difficulty. No dysarthria is noted. Motor: Gait is unable to assess because of his condition. The strength is0/5 over entire left side (normal). The right sided is betweeen 5- to 5/5. Increase tone over entire left side. Normal tone. Cerebellum: Normal finger to nose heel to chin bilaterally. Sensation: Sensation is normal to touch throughout. Reflexes (right/left): 3+ over the entire left while 2+ over the right. Ankles are 1+ bilaterally. Plantars are upgoing at baseline. Results The sodium is 138 was normal. Calcium is temperature was normal magnum is 1.6 which is normal AST is 47 and ALT of 29 which is normal CK is 680 which is slightly elevated that. TSH is 2.330 which is normal. Gutierres virus PCR is not detected. - Laboratory Findings CBC and BMP: 12/20/20 05:32 12/20/20 05:32 Abnormal Lab Findings: Abnormal Labs 12/19/20 12/19/20 12/19/20 11:10 13:55 14:01 RBC 3.90 L MCV 102.0 H BUN 26 H Glucose 154 H POC Glucose (mg/dL) 151 H Alkaline Phosphatase 271 H Creatine Kinase 680 H Assessment and Plan Assessment: This is a 50-year-old gentleman who presented to the emergency department on 12/19/2020 for generalized weakness. Generalized weakness could be due to underlying infection (osteomyelitis). 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 Previous right frontal temporal craniotomy flap with extensive encephalomalacia right cerebral hemisphere and marked ex vacuo enlargement of the right lateral ventricle. Previous resection cavity in the right middle cranial fossa. Tiny punctate densities in the right temporal lobe suspected that represent streak artifact rather than punctate foci of hemorrhage. Short interval follow-up recommended to reassess We cannot get MRI of the brain and because of that patient body habitus (morbid obsese). Therefore I'll get a repeat CT of the head. Patient is scheduled to get MRI of the brain this Friday and it's open MRI at a n outside the facility (ordered by his oncologist per the patient). I ordered vitamin B12 and folate level. TSH is 2.330 which is normal. Patient is on Keppra 750 minute and one tablet every 12 hours. In my opinion the patient is being under dosed for his body weight. Increased the Keppra to 1 g twice a day. On gabapentin 800 mg 1 tablet 4 times a day (home dose) An EEG is not warranted since patient is known to have history of epilepsy. I'll place the patient on aspirin 81 mg daily (was recommended in past to be on antiplateletes for secondary stroke prophylaxis). On Lipitor every 80mg daily. PT and OT are consulted. Infection disease team is consulted. We'll defer the rest of the management to the primary team. Patient was notified that he needs to follow-up with his neurologist (Dr. Flores) as an outpatient within 1-2 weeks. He also needs to follow-up with his onco logist. Plan was discussed with patient and his nurse. Thank you for the consult. Ambrocio Cantu M.D. Neuro-Hospitalist Time with Patient: Greater than 30
--- NOTE | 2020-12-20 10:58 | CT ---
EXAMINATION TYPE: CT brain wo con DATE OF EXAM: 12/20/2020 COMPARISON: CT brain from yesterday and older CTs. HISTORY: History of brain cancer. Prior abNormal CT. CT DLP: 1369.7 mGycm. Automated Exposure Control for Dose Reduction was Utilized. TECHNIQUE: CT scan of the head is performed without contrast. FINDINGS: Persistent right frontal temporal craniotomy change. Underlying resection cavity and/or enc ephalomalacia inferior right temporal lobe redemonstrated. Some foci of hyperdensity remain present p osterior aspect less prominent from prior. No acute intracranial hemorrhage or midline shift. Marked low attenuation in the right sided white ma tter redemonstrated. Ex vacuo dilatation right-sided ventricular system is again seen. Persistent hyp erdense area involving the ping and right midbrain extending into the right thalamus. IMPRESSION: No significant change from most recent CT. Findings as detailed above. Interval change f rom November 10, 2020 involving ping and right midbrain extending into right thalamus suspicious for s ubacute infarction.
[2020-12-20 11:22] LABS: Glucose,Whole Blood 159 mg/dL (75-99)
[2020-12-20 11:39] VITALS: BMI 53.8
--- NOTE | 2020-12-20 12:10 | P.PN ---
Subjective Progress Note Date: 12/20/20 HISTORY OF PRESENT ILLNESS This is a 50-year-old male patient of Dr. Vo with a past medical history of astrocytoma status post right temporal craniotomy along with chem otherapy and radiation with chronic left-sided paralysis, history of craniotomies and resections in 2016 and 2018, history of diabetes type 2, hypertension, hyperlipidemia, and is obstructive sleep apnea on BiPAP. Patient had a recent hospitalization in November due to weakness and was admitted and treated for lactic acidosis, acute kidney injury, and hyperkalemia. Patient was discharged to [facility] for a few weeks for rehab and eventually returned home. Patient does have a chronic ulcer to the left lateral foot that was being treated with topical wound care by his home care aids. Patient developed worsening weakness and presented to the emergency department yesterday. He was treated for dehydration, and discharged home. Patient become more weak while at home and was able to get out of bed. He returned to the emergency department. CT of the brain was done and showed subtle hypodensity in the right basal ganglia and right thalamus and within the right midbrain and ping, possible subacute or chronic ischemic changes. Left foot x-ray showed soft tissue edema and suspected ulceration to the fifth digit with findings suspicious for early osteomyelitis involving the head of the fifth metatarsal. He is afebrile, temp of 98, heart rate of 84, respiratory rate of 18, blood pressure 146/84, he is 98% on room air. CBC was unremarkable, BUN 26, creatinine 0.86, sodium 138, potassium 4.5, heart size to 71, creatinine kinase 680, TSH 2.33, COVID not detected. He was started on vancomycin along with Unasyn. Will plan for midline placement. Infectious disease consulted along with neurology for his increased weakness. 12/20: REVIEW OF SYSTEMS Constitutional: Reports chronic pain, Reports fatigue, Reports malaise, Reports weakness, Denies chills, Denies fever Ears: deny: decreased hearing, earache Ears, nose, mouth and throat: Denies epistaxis, Denies headache, Denies nasal congestion, Denies nasal discharge, Denies neck fullness/pressure, Denies sinus pressure, Denies sore throat Cardiovascular: Reports leg edema, Denies chest pain, Denies dyspnea on exe rtion, Denies irregular heart beat, Denies orthopnea, Denies palpitations, Denies shortness of breath, Denies syncope Respiratory: Denies congestion, Denies cough, Denies dyspnea, Denies hemoptysis, Denies pain, Denies pain on inspiration, Denies snoring, Denies wheezing Gastrointestinal: Denies constipation, Denies diarrhea, Denies dyspepsia, Denies excessive gas, Denies indigestion, Denies nausea, Denies vomiting Genitourinary: Denies discharge, Denies hematuria, Denies urinary frequency, Denies urinary hesitancy, Denies urinary retention Musculoskeletal: Reports gait dysfunction, Reports muscle weakness, Denies fractures, Denies neck pain, Denies neck stiffness Integumentary: Reports foot/leg ulcers, Reports lesions, Reports sores, Reports wounds, Denies growths, Denies pruritus, Denies rash Neurological: Reports gait dysfunction, Reports motor disturbance, Denies change in smell/taste, Denies change in speech, Denies confusion, Denies headaches, Denies memory loss, Denies seizures, Denies syncope Psychiatric: Denies anxiety, Denies confusion, Denies depression, Denies disorientation, Denies mood swings Endocrine: Denies high blood sugars, Denies palpitations, Denies polydipsia PHYSICAL EXAMINATION Gen: This is a morbidly obese 50-year-old male. He is sitting up in bed and appears to be comfortable. No acute distress is noted. HEENT: Head is atraumatic, normocephalic. Pupils equal, round. Sclerae is anicteric. Oral mucous members are moist. NECK: Supple. No JVD. No lymphadenopathy. No thyromegaly. LUNGS: Clear to auscultation. No wheezes or rhonchi. No intercostal retractions. HEART: Regular rate and rhythm. No murmur. ABDOMEN: Soft. Bowel sounds are present. No masses. No tenderness. On catheter in place. EXTREMITIES: No pedal edema. No calf tenderness. Dorsalis pedis palpable bilaterally. Wounds noted to the bilateral lower extremity and left foot. NEUROLOGICAL: Patient is awake, alert and oriented x3. Speech is slow and deliberate, slightly slurred. Paralysis of the left upper and lower extremities. ASSESSMENT AND PLAN 1. Osteomyelitis of the left lateral foot. Will obtain blood cultures, consult with infectious disease, started on vancomycin along with Unasyn, continue with wound care 2. Astrocytoma status post right temporal craniotomy post chemotherapy and radiation with worsening weakness. Consult to neurology to review CT results, patient was supposedly scheduled for open MRI with his oncologist as outpatient last visit, unsure if this was completed or not 3. Hypodensity in the right basal ganglia and right thalamus within the right midbrain and ping possible subacute or chronic ischemic changes. Repeat CAT scan is showing the same. Patient followed by neurology. Continue aspirin and Lipitor. Follow-up with Dr. Flores in 1-2 weeks. 4. 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 5. 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 Will continue Keppra 750 mg twice daily 6. Diabetes mellitus type 2. Continue Levemir 30 units daily along with NovoLo g 17 units twice a day with breakfast and lunch, 10 units with supper and NovoLog sliding scale before meals and at bedtime, at home is on Ozempic, will be due on Friday 7. Hypertension. Continue Lasix 40 mg daily, valsartan 320 mg daily and hydralazine 50 mg 3 times a day 8. Hyperlipidemia. Lipitor 80 mg daily at bedtime. 9. Chronic pain syndrome. On Voltaren gel along with Neurontin 800 mg 4 times a day and meloxicam 7.5 mg daily 10. Generalized anxiety and depression. Continue Cymbalta 60 mg twice daily 11. GI prophylaxis. Pantoprazole 12. DVT prophylaxis subcu heparin DISCHARGE PLAN TBD Impression and plan of care have been directed as dictated by the signing physician. Tona Nunes nurse practitioner acting as scribe for signing physician. Objective - Vital Signs Vital signs: Vital Signs Temp 98.2 F 12/20/20 11:45 Pulse 101 H 12/20/20 11:45 Resp 17 12/20/20 11:45 BP 121/85 12/20/20 11:45 Pulse Ox 95 12/20/20 11:45 Intake & Output 12/19/20 12/20/20 12/20/20 18:59 06:59 18:59 Weight 180.076 kg 180.076 kg Other: Voiding Method Diaper Urinal Incontinent Diaper # Voids 1 - Labs CBC & Chem 7: 12/20/20 05:32 12/20/20 05:32 Labs: Abnormal Lab Results - Last 24 Hours (Table) 12/19/20 12/19/20 12/19/20 Range/Units 13:55 14:01 17:47 RBC 3.90 L (4.30-5.90) m/uL Hgb (13.0-17.0) g/dL Hct (39.6-50.0) % MCV 102.0 H (80.0-100.0) fL MCH (27.0-32.0) pg BUN 26 H (9-20) mg/dL BUN/Creatinine Ratio (12.00-20.00) Ratio Glucose 154 H (74-99) mg/dL POC Glucose (mg/dL) 137 H (75-99) mg/dL AST (14-35) U/L Alkaline Phosphatase 271 H (38-126) U/L Creatine Kinase 680 H (55-170) U/L Total Protein (6.2-8.2) g/dL Albumin (3.80-4.90) g/dL Albumin/Globulin Ratio (1.60-3.17) g/dL 12/19/20 12/20/20 12/20/20 Range/Units 21:51 05:32 05:32 RBC 3.72 L (4.30-5.90) m/uL Hgb 12.3 L (13.0-17.0) g/dL Hct 38.3 L (39.6-50.0) % MCV 103.0 H (80.0-100.0) fL MCH 33.1 H (27.0-32.0) pg BUN (9-20) mg/dL BUN/Creatinine Ratio 21.11 H (12.00-20.00) Ratio Glucose 128 H (74-99) mg/dL POC Glucose (mg/dL) 146 H (75-99) mg/dL AST 40 H (14-35) U/L Alkaline Phosphatase 239 H (38-126) U/L Creatine Kinase (55-170) U/L Total Protein 5.6 L (6.2-8.2) g/dL Albumin 3.40 L (3.80-4.90) g/dL Albumin/Globulin Ratio 1.55 L (1.60-3.17) g/dL 12/20/20 12/20/20 Range/Units 07:00 11:21 RBC (4.30-5.90) m/uL Hgb (13.0-17.0) g/dL Hct (39.6-50.0) % MCV (80.0-100.0) fL MCH (27.0-32.0) pg BUN (9-20) mg/dL BUN/Creatinine Ratio (12.00-20.00) Ratio Glucose (74-99) mg/dL POC Glucose (mg/dL) 120 H 159 H (75-99) mg/dL AST (14-35) U/L Alkaline Phosphatase (38-126) U/L Creatine Kinase (55-170) U/L Total Protein (6.2-8.2) g/dL Albumin (3.80-4.90) g/dL Albumin/Globulin Ratio (1.60-3.17) g/dL Microbiology - Last 24 Hours (Table) 12/19/20 14:01 Gram Stain - Preliminary Foot - Left Wound Culture - Preliminary
[2020-12-20] MEDS: ASPIRIN 81 MG PO SCH (12:15)
[2020-12-20] MEDS: INSULIN ASPART (NovoLOG) 100 UNIT/ML VIAL SQ SCH ×4 (12:55→17:08)
[2020-12-20 16:59] LABS: Glucose,Whole Blood 200 mg/dL (75-99)
[2020-12-20] MEDS: COLLAGENASE 250 UNIT/GM OINTMENT 30 GM TUBE TOPICAL SCH (17:08)
--- NOTE | 2020-12-20 18:12 | PN ---
PROGRESS NOTE DATE OF SERVICE: 12/20/2020 REASON FOR FOLLOWUP: Left foot lateral border wound and concern for underlying osteomyelitis. INTERVAL HISTORY: The patient is currently afebrile. The patient is breathing comfortably. Denies having any chest pain or shortness of breath or cough. No abdominal pain or worsening pain to the left foot wound area. PHYSICAL EXAMINATION: Blood pressure 121/85, pulse of 101, temperature 98.2. He is 95% on room air. General description is a middle-aged male lying in bed in no distress. RESPIRATORY SYSTEM: Unlabored breathing. Clear to auscultation anteriorly. HEART: S1, S2. Regular rate and rhythm. ABDOMEN: Soft. No tenderness. Left foot lateral border wound with slough tissue, some surrounding swelling. No redness or any drainage. LABS: BUN of 19, creatinine 0.9. DIAGNOSTIC IMPRESSION AND PLAN: Patient with left foot lateral border wound with concern for underlying osteomyelitis on the basis of the abnormal x-ray. Blood cultures currently pending. Patient is covered with Zosyn and vancomycin with discharge antibiotic depending on the culture report. Continue supportive care. MMODL / IJN: [id number] /
[2020-12-20 19:55] LABS: Glucose,Whole Blood 115 mg/dL (75-99)
[2020-12-20] MEDS: levETIRAcetam 500 MG TAB PO SCH (21:53)
[2020-12-20] MEDS: ATORVASTATIN 80 MG TAB PO SCH (21:53)
[2020-12-21 00:40] LABS: Chol/HDL Ratio 3.8; LDL Cholesterol,Calculated 65.4 mg/dL (0.0-131.0); VLDL Calculation 18.6 mg/dL (5.00-40.00)
[2020-12-21] MEDS: VANCOMYCIN 2,000 MG in SODIUM CHLORIDE 0.9% 500 ML 500 ML IVPB SCH (04:12)
[2020-12-21 07:28] LABS: Glucose,Whole Blood 157 mg/dL (75-99)
--- NOTE | 2020-12-21 07:40 | ECHOF ---
Referral Reason:stroke MEASUREMENTS -------- HEIGHT: 182.9 cm WEIGHT: 180.1 kg BP: 121/85 RVIDd: 3.6 cm (< 3.3) IVSd: 1.8 cm (0.6 - 1.1) LVIDd: 4.0 cm (3.9 - 5.3) LVPWd: 1.5 cm (0.6 - 1.1) IVSs: 2.1 cm LVIDs: 3.1 cm LVPWs: 1.6 cm Ao Diam: 3.2 cm (2.0 - 3.7) AV Cusp: 2.7 cm (1.5 - 2.6) MV EXCURSION: 17.961 mm (> 18.000) MV EF SLOPE: 61 mm/s (70 - 150) EPSS: 0.9 cm FINDINGS -------- This was a technically difficult study with suboptimal views. The left ventricular size is normal. There is severe concentric left ventricular hypertrophy. Ove rall left ventricular systolic function is mildly impaired with, an EF between 45 - 50 %. The right ventricle is mild to moderately enlarged. The left atrium is mildly dilated. The right atrium was not well visualized. 5.0mg of Lumason was utilized for enhancement of images Interatrial and interventricular septum intact. There is no evidence of aortic regurgitation. There is no evidence of aortic stenosis. The mitral valve was not well visualized. No mitral regurgitation. The tricuspid valve was not well visualized. Mild tricuspid regurgitation present. There is no ev idence of pulmonary hypertension. The right ventricular systolic pressure, as measured by Doppler, is {RVSP}. The pulmonic valve was not well visualized. There is no pulmonic regurgitation present. The aortic root size is normal. IVC Not well visulized. There is a trivial pericardial effusion present. CONCLUSIONS -------- 1. The left ventricular size is normal. 2. There is severe concentric left ventricular hypertrophy. 3. Overall left ventricular systolic function is mildly impaired with, an EF between 45 - 50 %. 4. The right ventricle is mild to moderately enlarged. 5. The left atrium is mildly dilated. 6. Mild tricuspid regurgitation present. 7. There is a trivial pericardial effusion present. TRUCKMAN: Holley Foster [facility]
[2020-12-21] MEDS: VALSARTAN 160 MG TAB PO SCH (08:44)
[2020-12-21] MEDS: hydrALAZINE HCL 50 MG TAB PO SCH ×4 (08:44→21:32)
[2020-12-21] MEDS: ASPIRIN 81 MG PO SCH (08:44)
[2020-12-21] MEDS: MELOXICAM 7.5 MG TAB PO SCH (08:44)
[2020-12-21] MEDS: DULoxetine HCL 60 MG CAPSULE.DR PO SCH ×2 (08:44→21:32)
[2020-12-21] MEDS: PANTOPRAZOLE 40 MG TABLET PO SCH ×2 (08:44→18:24)
[2020-12-21] MEDS: INSULIN DETEMIR (LEVEMIR) 100 UNIT/ML SYR SQ SCH (08:45)
[2020-12-21] MEDS: FUROSEMIDE 40 MG TAB PO SCH (08:45)
[2020-12-21] MEDS: GABAPENTIN 400 MG CAP PO SCH ×4 (08:45→21:32)
[2020-12-21] MEDS: levETIRAcetam 500 MG TAB PO SCH ×2 (08:45→21:32)
[2020-12-21] MEDS: INSULIN ASPART (NovoLOG) 100 UNIT/ML VIAL SQ SCH ×3 (08:46→18:24)
[2020-12-21] MEDS: PIPERACILLIN-TAZOBACTAM 3.375 GM in SODIUM CHLORIDE 0.9% 100 ML IVPB SCH ×3 (08:55→23:53)
--- NOTE | 2020-12-21 09:45 | P.PN ---
Subjective Progress Note Date: 12/21/20 She was seen at bedside and he stated that he feels better today compared to yesterday. He feels he is more awake and responsive today. He denies of any new focal weakness or new any new neurological deficits. He stated that for more than one year neurologically he's been the same. CT of the head on 12/20/2020 which was a repeat since we cannot get MRI is reported as no significant change from the most recent CT. Finding as detailed above. Interval change from 11/10/2020 involving ping and right midbrain extending into the right thalamus suspicious for subacute infarction. 2-D echo was reported as severe concentric left ventricular hypertrophy. Left ventricle systolic function is mildly impaired with ejection fraction of 45-50%. Left atrium is mildly dilated. Lipid panel: Triglyceride 93, cholesterol of 114, LDL of 65 and HDL of 30. Vitamin B12 is 986. TSH is 2.330 which is normal Objective - Vital Signs Vital signs: Vital Signs Temp 97.6 F 12/21/20 05:00 Pulse 83 12/21/20 05:00 Resp 16 12/21/20 05:00 BP 114/67 12/21/20 05:00 Pulse Ox 96 12/21/20 05:00 Intake & Output 12/20/20 12/21/20 12/21/20 18:59 06:59 18:59 Intake Total 590 Output Total 600 Balance -10 Weight 180.076 kg Intake: Oral 590 Output: Urine 600 Other: Voiding Method Urinal Urinal Urinal Incontinent Incontinent Incontinent - Exam GENERAL: The patient is morbid obese, lying in bed and is not in acute distress. NEUROLOGICAL: Higher mental function: The patient is awake, alert, oriented to self, place and time. Patient is following commands. No aphasia and no neglect. Cranial nerves: The pupils are round, equal and reactive to light and accommodation. Visual caldwell left homonymous hemianopsia (old). Extraocular movement is intact no nystagmus is noted. Facial sensation is normal to touch throughout. The facial strength is mild left lower facial droop (old per patient). . Hearing is normal bilaterally to hand rub. Tongue is midline and moved [id number] without any difficulty. No dysarthria is noted. Motor: Gait is unable to assess because of his condition. The strength is0/5 over entire left side (normal). The right sided is betweeen 5- to 5/5. Increase tone over entire left side. Normal tone. Cerebellum: Normal finger to nose heel to chin bilaterally. Sensation: Sensation is normal to touch throughout. Reflexes (right/left): 3+ over the entire left while 2+ over the right. Ankles are 1+ bilaterally. Plantars are upgoing at baseline. - Labs CBC & Chem 7: 12/20/20 05:32 12/20/20 05:32 Labs: Abnormal Lab Results - Last 24 Hours (Table) 12/20/20 12/20/20 12/20/20 Range/Units 10:02 10:02 11:21 POC Glucose (mg/dL) 159 H (75-99) mg/dL HDL Cholesterol 30.0 L (40.0-60.0) mg/dL Vitamin B12 986.0 H (200.0-944.0) pg/mL 12/20/20 12/20/20 12/21/20 Range/Units 16:58 19:53 07:27 POC Glucose (mg/dL) 200 H 115 H 157 H (75-99) mg/dL HDL Cholesterol (40.0-60.0) mg/dL Vitamin B12 (200.0-944.0) pg/mL Microbiology - Last 24 Hours (Table) 12/20/20 11:00 Gram Stain - Preliminary Foot - Left Wound Culture - Preliminary 12/19/20 14:01 Gram Stain - Preliminary Foot - Left Wound Culture - Preliminary Gram Neg Bacilli 12/19/20 16:00 Blood Culture - Preliminary Blood No Growth after 24 hours 12/19/20 15:30 Blood Culture - Preliminary Blood No Growth after 24 hours Assessment and Plan Assessment: This is a 50-year-old gentleman who presented to the emergency department on 12/19/2020 for generalized weakness. Generalized weakness could be due to underlying infection (osteomyelitis). 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 Previous right frontal temporal craniotomy flap with extensive encephalomalacia right cerebral hemisphere and marked ex vacuo enlargement of the right lateral ventricle. Previous resection cavity in the right middle cranial fossa. Tiny punctate densities in the right temporal lobe suspected that represent streak artifact rather than punctate foci of hemorrhage. Short interval follow-up recommended to reassess We cannot get MRI of the brain and because of that patient body habitus (morbid obsese). Therefore I'll get a repeat CT of the head. Patient is scheduled to get MRI of the brain this Friday and it's open MRI at an outside the facility (ordered by his oncologist per the patient). CT of the head on 12/20/2020 which was a repeat since we cannot get MRI is reported as no significant change from the most recent CT. Finding as detailed above. Interval change from 11/10/2020 involving ping and right midbrain extending into the right thalamus suspicious for subacute infarction. 2-D echo was reported as severe concentric left ventricular hypertrophy. Left ventricle systolic function is mildly impaired with ejection fraction of 45-50%. Left atrium is mildly dilated. Lipid panel: Triglyceride 93, cholesterol of 114, LDL of 65 and HDL of 30. Vitamin B12 is 986. TSH is 2.330 which is normal Patient is on Keppra 750 minute and one tablet every 12 hours. In my opinion the patient is being under dosed for his body weight. Increased the Keppra to 1 g twice a day (patient should be on a dose of 1500mg bid for his body weight but he refused to go that high and was satisfied with 1gm bid and stated he has not had seizures in >1 year he believes) . On gabapentin 800 mg 1 tablet 4 times a day (home dose) An EEG is not warranted since patient is known to have history of epilepsy. Continue aspirin 81 mg daily (was recommended in past to be on antiplateletes for secondary stroke prophylaxis). On Lipitor every 80mg daily. PT and OT are consulted. Infection disease team is consulted. We'll defer the rest of the management to the primary team. Patient was notified that he needs to follow-up with his neurologist (Dr. Flores) as an outpatient within 1-2 weeks. He also needs to follow-up with his oncologist. There is no further work-up needed from a neurological stand point. Plan was discussed with patient, primary team (nurse practitioner) and his nurse. Ambrocio Cantu M.D. Neuro-Hospitalist Time with Patient: Less than 30
--- NOTE | 2020-12-21 10:03 | P.DS ---
Providers Date of admission: 12/19/20 14:58 Expected date of discharge: 12/22/20 Attending physician: Caesar Glaser Consults: 12/19/20 14:57 Consult Physician Urgent Consulting Provider: Leland Hdz Consult Reason/Comments: Osteomyelitis left foot Do you want consulting provider notified?: Yes 12/19/20 14:58 Consult Physician Urgent Consulting Provider: Ambrocio Cantu Consult Reason/Comments: weakness, review ct Do you want consulting provider notified?: Yes Primary care physician: Kathryn Vo [facility] Course: HISTORY OF PRESENT ILLNESS This is a 50-year-old male patient of Dr. Vo with a past medical history of astrocytoma status post right temporal craniotomy along with chemotherapy and radiation with chronic left-sided paralysis, history of craniotomies and resections in 2016 and 2018, history of diabetes type 2, hypertension, hyperlipidemia, and is obstructive sleep apnea on BiPAP. Patient had a recent hospitalization in November due to weakness and was admitted and treated for lactic acidosis, acute kidney injury, and hyperkalemia. Patient was discharged to [facility] for a few weeks for rehab and eventually returned home. Patient does have a chronic ulcer to the left lateral foot that was being treated with topical wound care by his home care aids. Patient developed worsening weakness and presented to the emergency department yesterday. He was treated for dehydration, and discharged home. Patient become more weak while at home and was able to get out of bed. He returned to the emergency department. CT of the brain was done and showed subtle hypodensity in the right basal ganglia and right thalamus and within the right midbrain and ping, possible subacute or chronic ischemic changes. Left foot x-ray showed soft tissue edema and suspected ulceration to the fifth digit with findings suspicious for early osteomyelitis involving the head of the fifth metatarsal. He is afebrile, temp of 98, heart rate of 84, respiratory rate of 18, blood pressure 146/84, he is 98% on room air. CBC was unremarkable, BUN 26, creatinine 0.86, sodium 138, potassium 4.5, heart size to 71, creatinine kinase 680, TSH 2.33, COVID not detected. He was started on vancomycin along with Unasyn. Will plan for midline placement. Infectious disease consulted along with neurology for his increased weakness. 12/20: Repeat CAT scan of the brain revealed interval change from November 10 involving ping and right midbrain extending into the right thalamus suspicious for subacute infarct. Echocardiogram reveals severe concentric left medical hypertrophy, EF 45-50%, mild to moderate right ventricular enlargement, mild tricuspid regurgitation, trivial pericardial effusion. Triglycerides 93, cholesterol 114, LDL 65 and HDL 30. Vitamin B12 986. She is unable to get an MRI due to his body habitus but he was scheduled for an outpatient CAT scan of the head that was arranged by his oncologist for Friday in an open MRI. Neurology has increased Keppra to 1000 mg twice daily and states that due to patient's weight he should be on 1500 mg twice daily but patient refused. Recommendations to continue gabapentin 800 mg one 4 times daily. Patient also continue aspirin 81 mg daily and Lipitor 80 mg daily. Follow-up with Dr. Flores in one to 2 weeks. 12/21: Dr. Hdz has recommending antibiotics depending on results of culture. Discharge is being held until tomorrow Wound culture from the left foot is gram- negative bacilli and group D enterococcus. Patient has been afebrile, heart rate 89, blood pressure 104/69, pulse ox 97% on room air. Repeat blood work reveals WBC 6.5, hemoglobin 12.5, platelet count 198. Electrolytes and renal f unction normal. Blood sugars running between 115 and 200. Alkaline phosphatase 256. C-reactive protein 5.3. Discussed discharge planning with the patient he states he wants to go home. Yesterday he stated that he wanted to go to his sisters in [place]. Social work is following to determine discharge planning. 12/22: Patient remains afebrile, heart rate 83, blood pressure 128/90, pulse ox 9 6% on room air. Wound culture is positive for E. coli and presumptive staph aureus. Dr. Hdz is waiting for cultures to be finalized for patient to be discharged. He is currently on Zosyn and vancomycin. Creatinine 1.14, vancomycin 17.2. Discharge plan is to [facility]. Patient will be discharged once Dr. Hdz has arranged IV antibiotics. Social work is following closely. ASSESSMENT AND PLAN 1. Osteomyelitis of the left lateral foot. 2. Astrocytoma status post right temporal craniotomy post chemotherapy and radiation with worsening weakness. 3. Hypodensity in the right basal ganglia and right thalamus within the right midbrain and ping possible subacute or chronic ischemic changes. Repeat CAT scan is showing the same. 4. 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 5. 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 6. Diabetes mellitus type 2. 7. Hypertension. 8. Hyperlipidemia. 9. Chronic pain syndrome. 10. Generalized anxiety and recurrent depression. DISCHARGE PLAN [place] of Impression and plan of care have been directed as dictated by the signing physician. Tona Nunes nurse practitioner acting as scribe for signing physician. Patient Condition at Discharge: Good Plan - Discharge Summary New Discharge Prescriptions: New Aspirin 81 mg PO DAILY chew levETIRAcetam [Keppra] 1,000 mg PO Q12HR tab Collagenase [Santyl] 1 applic TOPICAL DAILY applic metroNIDAZOLE [Flagyl] 500 mg PO TID #147 tab Cefuroxime Axetil [Ceftin] 500 mg PO BID #80 tab Vancomycin 2,500 mg IVPB Q24HR #49 bag Continue DULoxetine HCL [Cymbalta] 60 mg PO BID Celecoxib [CeleBREX] 200 mg PO DAILY Calcium Carbonate [Tums] 1,000 mg PO Q6H PRN PRN Reason: Heartburn hydrALAZINE HCL 50 mg PO TID Diclofenac Sodium [Voltaren Gel] 1 gram TOPICAL TID Insulin Glargine,Hum.rec.anlog [Lantus Solostar] 30 unit SQ DAILY INSULIN ASPART (NovoLOG) [NovoLOG (formulary)] 10 unit SQ AC-SUPPER INSULIN ASPART (NovoLOG) [NovoLOG (formulary)] 17 unit SQ AC-BID@0800,1200 Furosemide [Lasix] 40 mg PO DAILY Valsartan 320 mg PO DAILY Lomustine [Gleostine] 360 mg PO Q42D Ozempic 0.5mg/0.375ml 0.5 mg SQ MO [place] [address] Foam 1 applic TOPICAL DIRECTED Gabapentin 800 mg PO QID #12 tab Discontinued levETIRAcetam [Keppra] 750 mg PO Q12HR Atorvastatin Calcium [Lipitor] 80 mg PO HS Discharge Medication List Calcium Carbonate [Tums] 1,000 mg PO Q6H PRN 04/02/19 [History] Celecoxib [CeleBREX] 200 mg PO DAILY 04/02/19 [History] DULoxetine HCL [Cymbalta] 60 mg PO BID 04/02/19 [History] hydrALAZINE HCL 50 mg PO TID 04/02/19 [History] [place] [address] Foam 1 applic TOPICAL DIRECTED 11/10/20 [History] Diclofenac Sodium [Voltaren Gel] 1 gram TOPICAL TID 11/10/20 [History] Furosemide [Lasix] 40 mg PO DAILY 11/10/20 [History] INSULIN ASPART (NovoLOG) [NovoLOG (formulary)] 10 unit SQ AC-SUPPER 11/10/20 [History] INSULIN ASPART (NovoLOG) [NovoLOG (formulary)] 17 unit SQ AC-BID@0800,1200 11/10 [History] Insulin Glargine,Hum.rec.anlog [Lantus Solostar] 30 unit SQ DAILY 11/10/20 [History] Lomustine [Gleostine] 360 mg PO Q42D 11/10/20 [History] Ozempic 0.5mg/0.375ml 0.5 mg SQ MO 11/10/20 [History] Valsartan 320 mg PO DAILY 11/10/20 [History] Aspirin 81 mg PO DAILY chew 12/21/20 [Rx] Collagenase [Santyl] 1 applic TOPICAL DAILY applic 12/21/20 [Rx] Gabapentin 800 mg PO QID #12 tab 12/21/20 [Rx] levETIRAcetam [Keppra] 1,000 mg PO Q12HR tab 12/21/20 [Rx] Cefuroxime Axetil [Ceftin] 500 mg PO BID #80 tab 12/22/20 [Rx] Vancomycin 2,500 mg IVPB Q24HR #49 bag 12/22/20 [Rx] metroNIDAZOLE [Flagyl] 500 mg PO TID #147 tab 12/22/20 [Rx] Follow up Appointment(s)/Referral(s): Kathryn Vo MD [Primary Care Provider] - 12/28/20 1:00 pm (After discharge from [facility]) Ambulatory/Diagnostic Orders: C Reactive Protein [LAB.AMB] Location: None Selected Complete Blood Count w/diff [LAB.AMB] Location: None Selected Comprehensive Metabolic Panel [LAB.AMB] Location: None Selected Erythrocyte Sedimentation Rate [LAB.AMB] Location: None Selected Vancomycin,Trough [LAB.AMB] Location: None Selected Activity/Diet/Wound Care/Special Instructions: Wound healing center in one week Resume Lipitor after course of daptomycin is completed. Discharge Disposition: TRANSFER TO SNF/ECF
[2020-12-21 11:20] LABS: HCT 39.5 % (39.6-50.0); HGB 12.5 g/dL (13.0-17.0); MCH 32.9 pg (27.0-32.0); MCHC 31.6 g/dL (32.0-37.0); MCV 103.9 fL (80.0-97.0); Mean Platelet Volume 9.6 fL (9.5-12.2); Platelet Count 198 X 10*3/uL (140-440); RDW 13.1 % (11.5-14.5); WBC 6.56 X 10*3/uL (4.50-10.00)
[2020-12-21 11:53] LABS: Glucose,Whole Blood 166 mg/dL (75-99)
[2020-12-21 12:16] LABS: African American GFR (CKD) 74.3 (60.0-200.0); Albumin 3.8 g/dL (3.80-4.90); Albumin/Globulin Ratio 1.65 (1.60-3.17); Anion Gap 7.5 mmol/L (4.00-12.00); BUN/Creat Ratio 15.38 Ratio (12.00-20.00); C Reactive Protein 5.3 mg/dL (0.0-0.8); Calcium 9.5 mg/dL (8.7-10.3); Carbon Dioxide 29.5 mmol/L (21.6-31.8); Globulin 2.3 g/dL (1.6-3.3); Non-African American GFR(CKD) 64.1 (60.0-200.0); Potassium 4.3 mmol/L (3.5-5.5); Total Bilirubin 0.4 mg/dL (0.3-1.2); Total Protein 6.1 g/dL (6.2-8.2)
--- NOTE | 2020-12-21 12:21 | P.PN ---
Subjective Progress Note Date: 12/21/20 HISTORY OF PRESENT ILLNESS This is a 50-year-old male patient of Dr. Vo with a past medical history of astrocytoma status post right temporal craniotomy along with chem otherapy and radiation with chronic left-sided paralysis, history of craniotomies and resections in 2016 and 2018, history of diabetes type 2, hypertension, hyperlipidemia, and is obstructive sleep apnea on BiPAP. Patient had a recent hospitalization in November due to weakness and was admitted and treated for lactic acidosis, acute kidney injury, and hyperkalemia. Patient was discharged to [facility] for a few weeks for rehab and eventually returned home. Patient does have a chronic ulcer to the left lateral foot that was being treated with topical wound care by his home care aids. Patient developed worsening weakness and presented to the emergency department yesterday. He was treated for dehydration, and discharged home. Patient become more weak while at home and was able to get out of bed. He returned to the emergency department. CT of the brain was done and showed subtle hypodensity in the right basal ganglia and right thalamus and within the right midbrain and ping, possible subacute or chronic ischemic changes. Left foot x-ray showed soft tissue edema and suspected ulceration to the fifth digit with findings suspicious for early osteomyelitis involving the head of the fifth metatarsal. He is afebrile, temp of 98, heart rate of 84, respiratory rate of 18, blood pressure 146/84, he is 98% on room air. CBC was unremarkable, BUN 26, creatinine 0.86, sodium 138, potassium 4.5, heart size to 71, creatinine kinase 680, TSH 2.33, COVID not detected. He was started on vancomycin along with Unasyn. Will plan for midline placement. Infectious disease consulted along with neurology for his increased weakness. 12/20: Repeat CAT scan of the brain revealed interval change from November 10 involving ping and right midbrain extending into the right thalamus suspicious for subacute infarct. Echocardiogram reveals severe concentric left medical hypertrophy, EF 45-50%, mild to moderate right ventricular enlargement, mild tricuspid regurgitation, trivial pericardial effusion. Triglycerides 93, cholesterol 114, LDL 65 and HDL 30. Vitamin B12 986. She is unable to get an MRI due to his body habitus but he was scheduled for an outpatient CAT scan of the head that was arranged by his oncologist for Friday in an open MRI. Neurology has increased Keppra to 1000 mg twice daily and states that due to patient's weight he should be on 1500 mg twice daily but patient refused. Recommendations to continue gabapentin 800 mg one 4 times daily. Patient also continue aspirin 81 mg daily and Lipitor 80 mg daily. Follow-up with Dr. Flores in one to 2 weeks. 12/21: Dr. Hdz has recommending antibiotics depending on results of culture. Discharge is being held until tomorrow Wound culture from the left foot is gram- negative bacilli and group D enterococcus. Patient has been afebrile, heart r ate 89, blood pressure 104/69, pulse ox 97% on room air. Repeat blood work reveals WBC 6.5, hemoglobin 12.5, platelet count 198. Electrolytes and renal function normal. Blood sugars running between 115 and 200. Alkaline phosphatase 256. C-reactive protein 5.3. Discussed discharge planning with the patient he states he wants to go home. Yesterday he stated that he wanted to go to his sisters in [place]. Social work is following to determine discharge planning. REVIEW OF SYSTEMS Constitutional: Reports chronic pain, Reports fatigue, Reports malaise, Reports weakness, Denies chills, Denies fever Ears: deny: decreased hearing, earache Ears, nose, mouth and throat: Denies epistaxis, Denies headache, Denies nasal congestion, Denies nasal discharge, Denies neck fullness/pressure, Denies sinus pressure, Denies sore throat Cardiovascular: Reports leg edema, Denies chest pain, Denies dyspnea on exertion, Denies irregular heart beat, Denies orthopnea, Denies palpitations, Denies shortness of breath, Denies syncope Respiratory: Denies congestion, Denies cough, Denies dyspnea, Denies hemoptysis, Denies pain, Denies pain on inspiration, Denies snoring, Denies wheezing Gastrointestinal: Denies constipation, Denies diarrhea, Denies dyspepsia, Denies excessive gas, Denies indigestion, Denies nausea, Denies vomiting Genitourinary: Denies discharge, Denies hematuria, Denies urinary frequency, De nies urinary hesitancy, Denies urinary retention Musculoskeletal: Reports gait dysfunction, Reports muscle weakness, Denies fractures, Denies neck pain, Denies neck stiffness Integumentary: Reports foot/leg ulcers, Reports lesions, Reports sores, Reports wounds, Denies growths, Denies pruritus, Denies rash Neurological: Reports gait dysfunction, Reports motor disturbance, Denies change in smell/taste, Denies change in speech, Denies confusion, Denies headaches, Denies memory loss, Denies seizures, Denies syncope Psychiatric: Denies anxiety, Denies confusion, Denies depression, Denies disorientation, Denies mood swings Endocrine: Denies high blood sugars, Denies palpitations, Denies polydipsia PHYSICAL EXAMINATION Gen: This is a morbidly obese 50-year-old male. He is sitting up in bed and appears to be comfortable. No acute distress is noted. HEENT: Head is atraumatic, normocephalic. Pupils equal, round. Sclerae is anicteric. Oral mucous members are moist. NECK: Supple. No JVD. No lymphadenopathy. No thyromegaly. LUNGS: Clear to auscultation. No wheezes or rhonchi. No intercostal retractions. HEART: Regular rate and rhythm. No murmur. ABDOMEN: Soft. Bowel sounds are present. No masses. No tenderness. On catheter in place. EXTREMITIES: No pedal edema. No calf tenderness. Dorsalis pedis palpable bilaterally. Wounds noted to the bilateral lower extremity and left foot. NEUROLOGICAL: Patient is awake, alert and oriented x3. Speech is slow and deliberate, slightly slurred. Paralysis of the left upper and lower extremities. ASSESSMENT AND PLAN 1. Osteomyelitis of the left lateral foot. Will obtain blood cultures, consult with infectious disease, started on vancomycin along with Unasyn, continue with wound care. Discharge and advised to be determined by Dr. Rahman. 2. Astrocytoma status post right temporal craniotomy post chemotherapy and radiation with worsening weakness. Consult to neurology to review CT results, patient was supposedly scheduled for open MRI with his oncologist as outpatient last visit, unsure if this was completed or not 3. Hypodensity in the right basal ganglia and right thalamus within the right midbrain and ping possible subacute or chronic ischemic changes. Repeat CAT scan is showing the same. Patient followed by neurology. Continue aspirin and Lipitor. Follow-up with Dr. Flores in 1-2 weeks. 4. 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 5. 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 Will continue Keppra 750 mg twice daily 6. Diabetes mellitus type 2. Continue Levemir 30 units daily along with NovoLog 17 units twice a day with breakfast and lunch, 10 units with supper and NovoLog sliding scale before meals and at bedtime, at home is on Ozempic, will be due on Friday 7. Hypertension. Continue Lasix 40 mg daily, valsartan 320 mg daily and hydralazine 50 mg 3 times a day 8. Hyperlipidemia. Lipitor 80 mg daily at bedtime. 9. Chronic pain syndrome. On Voltaren gel along with Neurontin 800 mg 4 times a day and meloxicam 7.5 mg daily 10. Generalized anxiety and depression. Continue Cymbalta 60 mg twice daily 11. GI prophylaxis. Pantoprazole 12. DVT prophylaxis subcu heparin DISCHARGE PLAN TBD Impression and plan of care have been directed as dictated by the signing ph ysician. Tona Nunes nurse practitioner acting as scribe for signing physician. Objective - Vital Signs Vital signs: Vital Signs Temp 97.6 F 12/21/20 05:00 Pulse 83 12/21/20 05:00 Resp 16 12/21/20 05:00 BP 114/67 12/21/20 05:00 Pulse Ox 96 12/21/20 05:00 Intake & Output 12/20/20 12/21/20 12/21/20 18:59 06:59 18:59 Intake Total 590 Output Total 600 Balance -10 Weight 180.076 kg Intake: Oral 590 Output: Urine 600 Other: Voiding Method Urinal Urinal Urinal Incontinent Incontinent Incontinent - Labs CBC & Chem 7: 12/21/20 05:51 12/21/20 05:51 Labs: Abnormal Lab Results - Last 24 Hours (Table) 12/20/20 12/20/20 12/20/20 Range/Units 10:02 10:02 11:21 POC Glucose (mg/dL) 159 H (75-99) mg/dL HDL Cholesterol 30.0 L (40.0-60.0) mg/dL Vitamin B12 986.0 H (200.0-944.0) pg/mL 12/20/20 12/20/20 12/21/20 Range/Units 16:58 19:53 07:27 POC Glucose (mg/dL) 200 H 115 H 157 H (75-99) mg/dL HDL Cholesterol (40.0-60.0) mg/dL Vitamin B12 (200.0-944.0) pg/mL Microbiology - Last 24 Hours (Table) 12/20/20 11:00 Gram Stain - Preliminary Foot - Left Wound Culture - Preliminary 12/19/20 14:01 Gram Stain - Preliminary Foot - Left Wound Culture - Preliminary Gram Neg Bacilli 12/19/20 16:00 Blood Culture - Preliminary Blood No Growth after 24 hours 12/19/20 15:30 Blood Culture - Preliminary Blood No Growth after 24 hours
[2020-12-21] MEDS: COLLAGENASE 250 UNIT/GM OINTMENT 30 GM TUBE TOPICAL SCH (13:07)
[2020-12-21] MEDS: SODIUM CHLORIDE 0.9% 1,000 ML IV SCH ×3 (13:07→16:26)
[2020-12-21 14:01] LABS: Erythrocyte Sedimentation Rate 77 mm/Hr (0-15)
--- NOTE | 2020-12-21 16:53 | PN ---
PROGRESS NOTE DATE OF SERVICE: 12/21/2020 REASON FOR FOLLOWUP: Left foot lateral border wound with underlying osteomyelitis. INTERVAL HISTORY: The patient is currently afebrile. The patient is breathing comfortably. Denies having any chest pain or shortness of breath or cough. No abdominal pain or diarrhea. PHYSICAL EXAMINATION: Blood pressure 106/65, pulse of 60, temperature 97.9. He is 97% on room air. General description is a middle-aged male lying in bed in no distress. RESPIRATORY SYSTEM: Unlabored breathing. Clear to auscultation anteriorly. HEART: S1, S2. Regular rate and rhythm. ABDOMEN: Soft. No tenderness. Left foot is currently dressed up. No obvious drainage on the dressing. LABS: Hemoglobin is 12.5, white count 6.56, creatinine 1.3. Wound culture showing Gram- negative and enterococcus. DIAGNOSTIC IMPRESSION AND PLAN: Patient with a left foot lateral border wound at the base of the fifth toe with underlying osteomyelitis, culture with Gram-negative and enterococcus. Will wait for the sensitivities if the patient needs a PICC line or outpatient IV antibiotics. Continue with supportive care. MMODL / IJN: [id number] /
[2020-12-21 17:00] LABS: Glucose,Whole Blood 94 mg/dL (75-99)
[2020-12-21 20:08] LABS: Glucose,Whole Blood 128 mg/dL (75-99)
[2020-12-21 20:37] VITALS: RESP 18
[2020-12-21] MEDS: ATORVASTATIN 80 MG TAB PO SCH (21:32)
[2020-12-21] MEDS: DICLOFENAC SODIUM GEL 100 GM TUBE TOPICAL SCH (21:33)
[2020-12-22] MEDS ORDERED: VANCOMYCIN TROUGH DUE 1 EACH MISC MISCELLANE ONE (03:00)
[2020-12-22 07:10] LABS: Glucose,Whole Blood 157 mg/dL (75-99)
[2020-12-22] MEDS: INSULIN DETEMIR (LEVEMIR) 100 UNIT/ML SYR SQ SCH (09:16)
[2020-12-22] MEDS: INSULIN ASPART (NovoLOG) 100 UNIT/ML VIAL SQ SCH ×2 (09:16→12:55)
[2020-12-22] MEDS: PIPERACILLIN-TAZOBACTAM 3.375 GM in SODIUM CHLORIDE 0.9% 100 ML IVPB SCH (09:17)
[2020-12-22] MEDS: COLLAGENASE 250 UNIT/GM OINTMENT 30 GM TUBE TOPICAL SCH (09:19)
[2020-12-22] MEDS: FUROSEMIDE 40 MG TAB PO SCH (09:20)
[2020-12-22] MEDS: DULoxetine HCL 60 MG CAPSULE.DR PO SCH (09:20)
[2020-12-22] MEDS: levETIRAcetam 500 MG TAB PO SCH (09:20)
[2020-12-22] MEDS: PANTOPRAZOLE 40 MG TABLET PO SCH (09:20)
[2020-12-22] MEDS: ASPIRIN 81 MG PO SCH (09:20)
[2020-12-22] MEDS: GABAPENTIN 400 MG CAP PO SCH ×2 (09:20→12:55)
[2020-12-22] MEDS: MELOXICAM 7.5 MG TAB PO SCH (09:21)
[2020-12-22] MEDS: hydrALAZINE HCL 50 MG TAB PO SCH (09:22)
[2020-12-22] MEDS: VALSARTAN 160 MG TAB PO SCH (09:22)
[2020-12-22] MEDS: SODIUM CHLORIDE 0.9% 1,000 ML IV SCH (10:42)
[2020-12-22 11:41] LABS: Glucose,Whole Blood 232 mg/dL (75-99)
[2020-12-22 12:01] VITALS: BP 154/92; PULSE 77; TEMP 98
--- NOTE | 2020-12-22 15:35 | PN ---
PROGRESS NOTE DATE OF SERVICE: 12/22/2020 REASON FOR FOLLOWUP: Left fifth toe diabetic foot ulcer with underlying osteomyelitis, acute. INTERVAL HISTORY: The patient is currently afebrile. The patient is breathing comfortably. No chest pain. No cough. No nausea, vomiting, abdominal pain or any diarrhea. PHYSICAL EXAMINATION: Blood pressure is 154/92 with a pulse of 77, temperature 98. He is 97% on room air. General description is a middle-aged male lying in bed in no distress. RESPIRATORY SYSTEM: Unlabored breathing. Clear to auscultation anteriorly. HEART: S1, S2. Regular rate and rhythm. ABDOMEN: Soft. No tenderness. Left foot is currently dressed. No obvious drainage on the dressing. LABS: Sedimentation rate is 77, CRP 5.3. Local cultures with E coli, Enterococcus faecalis and presumptive MRSA per discussion with the nurse practitioner. DIAGNOSTIC IMPRESSION AND PLAN: Patient with left fifth toe osteomyelitis, cultures with different pathogens. Antibiotic will be switched over to daptomycin to cover for the MRSA and Enterococcus faecalis. For the E coli to Cipro antibiotic in the form of Ceftin and Flagyl to cover for anaerobes and close outpatient followup. MMODL / IJN: [id number] /
[2020-12-25] MEDS ORDERED: OZEMPIC SQ SCH (12:00)
== END 2020-12-22 17:00 | DRG 638 ==
LOC: EC 11:05 → 5NMEDONC 14:58
PROVIDERS: ADMIT Internal Medicine Geriatric Medicine; ATTEND Internal Medicine Geriatric Medicine
PROC: 05HF33Z Insertion of Infusion Device into Left Cephalic Vein, Percutaneous Approach (ICD-10-PCS; principal; 2020-12-19 12:15)
DX: E11.69 Type 2 diabetes mellitus with other specified complication (principal); M86.172 Other acute osteomyelitis, left ankle and foot; G81.94 Hemiplegia, unspecified affecting left nondominant side; Z68.43 Body mass index [BMI] 50.0-59.9, adult; F33.9 Major depressive disorder, recurrent, unspecified; E11.621 Type 2 diabetes mellitus with foot ulcer; G40.409 Other generalized epilepsy and epileptic syndromes, not intractable, without status epilepticus; H53.462 Homonymous bilateral field defects, left side; G93.89 Other specified disorders of brain; E66.01 Morbid (severe) obesity due to excess calories; Z79.4 Long term (current) use of insulin; L97.529 Non-pressure chronic ulcer of other part of left foot with unspecified severity; Z20.822 Contact with and (suspected) exposure to COVID-19; I11.9 Hypertensive heart disease without heart failure; B96.20 Unspecified Escherichia coli [E. coli] as the cause of diseases classified elsewhere; E78.5 Hyperlipidemia, unspecified; G47.33 Obstructive sleep apnea (adult) (pediatric); G89.4 Chronic pain syndrome; F41.1 Generalized anxiety disorder; F17.200 Nicotine dependence, unspecified, uncomplicated; Z79.1 Long term (current) use of non-steroidal anti-inflammatories (NSAID); Z79.899 Other long term (current) drug therapy; Z85.841 Personal history of malignant neoplasm of brain; Z86.14 Personal history of Methicillin resistant Staphylococcus aureus infection; Z92.3 Personal history of irradiation; Z92.21 Personal history of antineoplastic chemotherapy; Z71.3 Dietary counseling and surveillance; Z88.8 Allergy status to other drugs, medicaments and biological substances; Z83.3 Family history of diabetes mellitus; Z82.49 Family history of ischemic heart disease and other diseases of the circulatory system
CPT/HCPCS: 36410; 36415; 70450; 71046; 76937; 80053; 80061; 80202; 82550; 82565; 82607; 82747; 83605; 83735; 83880; 84443; 84484; 85025; 85027; 85610; 85652; 86140; 87040; 87070; 87077; 87186; 87205; 87635; 93005; 93306; 96365; 96367; 99285